=== PATIENT | male | born 1955 | race Caucasian/White ===

== ENCOUNTER → 2019-03-06 08:55 | Outpatient (CLI) | payer SELFPAY ==
[2019-03-06 12:27] LABS: Anion Gap 7 (5-15); BUN 21 mg/dL (7-18); Calcium,Total 9.5 mg/dL (8.5-10.1); Chloride 98 mmol/L (98-107); Creatinine, Serum 0.92 mg/dL (0.70-1.30); EST Glomerular Filtration Rate 88 mL/min (>60); Est Glom Filt Rate - Afr Amer 107 mL/min (>60); Glucose 301 mg/dL (74-106); Potassium 4.1 mmol/L (3.5-5.1); Sodium Level 134 mmol/L (136-145)
== END ==
PROVIDERS: PCP Family Medicine; Referring Provider Family Medicine; Visit Provider Family Medicine
DX: E11.65 Type 2 diabetes mellitus with hyperglycemia (principal); I10 Essential (primary) hypertension
CPT/HCPCS: 36415; 80048

== ENCOUNTER → 2020-01-09 09:12 | Outpatient (CLI) | payer MEDICARE, SELFPAY ==
[2020-01-09 12:23] LABS: Absolute Lymphocyte Count 1.27 X10^3/uL (0.83-4.51); Absolute Neutrophil Count 2.6 X10^3/uL (2.0-7.7); Basophil# 0.02 X10^3/uL; Basophil% 0.4 % (0-1); Eosinophil# 0.09 X10^3/uL; Hematocrit 43.9 % (40-54); Hemoglobin 14.2 g/dL (13.0-16.5); Lymphocyte # 1.27 X10^3/ul (4.0); Lymphocyte % 28.5 % (19-41); Mean Corp Hgb Conc 32.3 g/dL (32-36); Mean Corpuscular Hgb 29.3 pg (27.0-32.0); Mean Corpuscular Volume 90.7 fL (80-94); Mean Platelet Vol. 10.8 fl (6.2-12.0); Monocyte# 0.51 X10^3/uL; Monocyte% 11.4 % (0-10); NRBC Flagged by Analyzer 0 % (0-5); Neutrophil # 2.56 X10^3/uL (2.7-7.7); Neutrophil % 57.5 % (47-70); Platelet Count 267 K/mm3 (150-450); RBC Distribution Width CV 12.2 % (11.6-14.6); RBC Distribution Width SD 40.7 fl (35.1-43.9); Red Blood Count 4.84 M/mm3 (4.6-6.2); White Blood Count 4.5 K/mm3 (4.4-11.0)
[2020-01-09 12:36] LABS: ALB/GLOB Ratio 1.1 RATIO (0.9-2.4); AST(SGOT) 13 U/L (15-37); Alanine Aminotransfer ALT/SGPT 28 U/L (16-61); Albumin, Serum 3.9 g/dL (3.2-5.0); Alkaline Phosphatase 85 U/L (45-117); Anion Gap 5 (5-15); BUN 22 mg/dL (7-18); BUN/Creat Ratio 19.1 RATIO (10-20); Calcium,Total 9.3 mg/dL (8.5-10.1); Chloride 104 mmol/L (98-107); Cholesterol 215 mg/dL (200); Creatinine, Serum 1.15 mg/dL (0.70-1.30); EST Glomerular Filtration Rate 68 mL/min (>60); Est Glom Filt Rate - Afr Amer 82 mL/min (>60); Globulin 3.7 g/dL (2.2-4.2); Glucose 315 mg/dL (74-106); High Density Lipoprotein 50 mg/dL; Protein, Total 7.6 g/dL (6.4-8.2); Sodium Level 137 mmol/L (136-145); Triglycerides 159 mg/dL; Very Low Density Lipoprotein 32 mg/dL (5-40)
[2020-01-09 12:42] LABS: Hemoglobin A1c 9.9 % (3.8-5.6)
[2020-01-09 13:49] LABS: Microalbumin,Random Urine 26.2 mg/L (NO RANGE EST.)
== END ==
PROVIDERS: PCP Family Medicine; Visit Provider Family Medicine
DX: E11.65 Type 2 diabetes mellitus with hyperglycemia (principal); I10 Essential (primary) hypertension
CPT/HCPCS: 36415; 80053; 80061; 82043; 82570; 83036; 85025

== ENCOUNTER → 2020-01-13 11:19 | Outpatient (CLI) | payer MEDICARE, SELFPAY ==
[2020-01-13 16:01] LABS: PSA,Total - Annual Screen 1.02 ng/mL (0.00-4.00)
== END ==
LOC: LABSPEC 01-09 12:10 → BFHLAB 11:20
PROVIDERS: PCP Family Medicine; Referring Provider Family Medicine; Visit Provider Family Medicine
DX: Z12.5 Encounter for screening for malignant neoplasm of prostate (principal)
CPT/HCPCS: 36415; 84153; G0103

== ENCOUNTER 2020-04-29 15:26 | Outpatient (RCR) | payer MEDICARE, SELFPAY ==
[2020-04-29] MEDS: COVID-19 VACC, MRNA(PFIZER)/PF 30 MCG/0.3 ML SYRINGE IM (17:47)
[2020-05-20] MEDS: COVID-19 VACC, MRNA(PFIZER)/PF 30 MCG/0.3 ML SYRINGE IM (17:35)
== END 2020-07-27 23:59 ==
LOC: IMMUN 15:26
PROVIDERS: PCP Family Medicine; Referring Provider Family Medicine; Visit Provider Family Medicine
DX: Z23 Encounter for immunization (principal)
CPT/HCPCS: 0001A; 0002A; 91300

== ENCOUNTER → 2020-06-24 16:33 | Outpatient (CLI) | payer MEDICARE, SELFPAY ==
--- NOTE | 2020-06-24 16:50 | RAD_ITS ---
STUDY: X-RAY CHEST REASON FOR EXAM: Male, 64 years old. Shortness of breath. TECHNIQUE: PA and lateral views of the chest. COMPARISON: None. FINDINGS: The lungs are hypoexpanded. Bilateral pleural effusions and atelectasis at the lung bases. There is no acute infiltrate or mass. Normal size heart. Normal mediastinum and presley. Normal visualized pulmonary arteries. Normal visualized aortic arch and descending thoracic aorta. There are diffuse degenerative changes of the visualized thoracic spine. There is degenerative osteoarthritis of the bilateral shoulders. There is no demonstrated abnormality of the visualized soft tissue structures of the upper abdomen. RAD/Chest PA and Lateral IMPRESSION: Bilateral pleural effusions and atelectasis. Electronically Signed: Hany Ferrara DO at 18:34 EDT Tel [phone], Service support ,
== END ==
PROVIDERS: PCP Family Medicine; Referring Provider Family Medicine; Visit Provider Family Medicine
DX: R06.02 Shortness of breath (principal)
CPT/HCPCS: 71046

== ENCOUNTER → 2020-06-28 11:56 | Outpatient (CLI) | payer MEDICARE, SELFPAY ==
[2020-06-28 10:58] VITALS: BMI 25.0
[2020-06-28 13:00] LABS: Absolute Lymphocyte Count 0.68 X10^3/uL (0.83-4.51); Basophil# 0.01 X10^3/uL; Basophil% 0.2 % (0-1); Eosinophil# 0.03 X10^3/uL; Eosinophils% 0.7 % (0-5); Hematocrit 40.9 % (40-54); Hemoglobin 12.7 g/dL (13.0-16.5); Lymphocyte # 0.68 X10^3/ul (0.83-4.51); Lymphocyte % 16.3 % (19-41); Mean Corp Hgb Conc 31.1 g/dL (32-36); Mean Corpuscular Hgb 27.8 pg (27.0-32.0); Mean Corpuscular Volume 89.5 fL (80-94); Mean Platelet Vol. 10.5 fl (6.2-12.0); Monocyte# 0.47 X10^3/uL; Monocyte% 11.3 % (0-10); NRBC Flagged by Analyzer 0 % (0-5); Neutrophil # 2.98 X10^3/uL (2.7-7.7); Neutrophil % 71.5 % (47-70); Platelet Count 317 K/mm3 (150-450); RBC Distribution Width SD 45.4 fl (35.1-43.9); Red Blood Count 4.57 M/mm3 (4.6-6.2); White Blood Count 4.2 K/mm3 (4.4-11.0)
[2020-06-28 13:10] LABS: International Normalized Ratio 1.1; Partial Thromboplast Time 27.9 Seconds (24.1-36.2); Prothrombin Time (Protime)PT. 13.9 SECONDS (11.7-14.9)
== END ==
PROVIDERS: PCP Family Medicine; Referring Provider Internal Medicine Critical Care Medicine; Visit Provider Internal Medicine Critical Care Medicine
DX: J90 Pleural effusion, not elsewhere classified (principal); R06.02 Shortness of breath
CPT/HCPCS: 36415; 85025; 85610; 85730

== ENCOUNTER → 2020-06-29 14:10 | Outpatient (CLI) | payer MEDICARE, SELFPAY ==
[2020-06-28 10:58] VITALS: BMI 25.0
--- NOTE | 2020-06-29 | IMM_PTH ---
PATIENT: EVE ONEIL Jr. LOC: U#:[id number] AGE/SX: 69/M ROOM: RE06/29/[address]: Dr. Jaziel Medrano MD : 1955 BED: DIS: SPEC #: [id number] RECD: 07/01/20 11:49 STATUS: CAMMIE REQ #: [id number] HUMBERTO: 06/29/20 00:[address]: Jaziel Medrano DEPT: IMMUNOHISTOCHEMISTRY RECD BY: Migdalia Lagos ENTERED: 07/01/20 11:51 SP TYPE: IMMUNO OTHR DR: Dr. Jaja Ramsey MD Tissues: THORACIC FLUID Procedures: NAPSIN A (add) Reji Ret (add) CK20 (add) CK5-6 (add) CK7 (add) CK8 (add) SAUCEDO-2 (add) MACRO (add) TTF1 (add) Vimentin (add) Pankeratin (initial) P40 (add) CDX2 (add) PHYSICIAN & [address] [address] SPECIMEN INFORMATION: Tissue Source: Thoracentesis fluid Clinical Info: Pleural effusion Specimen Number: [id number] CPT code: 06867, 34103 x12 METHODOLOGY: Deparaffinized sections of prefer/formalin-fixed tissue or PAP/DQ stained slides are incubated with monoclonal/polyclonal antibodies/oligonucleotide probes. Localization is made via biotin free immunoperoxidase method. Appropriate controls are performed and reacted as expected. Results on target cell population are indicated in the following table: RESULTS: ANTIBODY / CLONE RESULT AE1-3 (AE1/AE3/PCK26) negative (positive in mesothelial cells) CK7 (OV-TL12/30) negative (positive in mesothelial cells) CK8 (01qkkdH80) negative (positive in mesothelial cells) CK20 (KS20.8) negative (positive in mesothelial cells) SAUCEDO-2 (SP21) positive CDX2 ([id number]) negative Vimentin (V9) negative (positive in mesothelial cells and macrophages) Macro (HAM-56) negative (positive in macrophages) TTF-1 (8G7G3/1) negative Napsin A (Rabbit Polyclonal) negative CALRET (polyclonal) negative (positive in mesothelial cells) CK5-6 (D5 & 1684) negative (positive in mesothelial cells) P40 (BC28) negative These tests were developed and their performance characteristics determined by [facility]. They may not have been cleared or approved by the U.S. Food and Drug Administration. The FDA has determined that such clearance or approval is not necessary. The above immunohistochemical/dualISH markers are ordered and reviewed by the Pathologist. INTERPRETATION: Thoracentesis fluid: Negative for malignant cells. Reactive mesothelial cells are noted. SJ:annalisa 07/02/2020
--- NOTE | 2020-06-29 14:00 | FLU_PTH ---
PATIENT: EVE ONEIL Jr. LOC: U#:[id number] AGE/SX: 69/M ROOM: RE06/29/[address]: Dr. Jaziel Medrano MD : 1955 BED: DIS: SPEC #: [id number] RECD: 06/30/20 11:32 STATUS: CAMMIE BRISENO #: [id number] HUMBERTO: 06/29/20 14:[address]: Jaziel Medrano DEPT: CYTOLOGY RECD BY: Polina Tam ENTERED: 06/30/20 11:32 SP TYPE: Fluid OTHR DR: Dr. Jaja Ramsey MD Tissues: THORACIC FLUID Procedures: Special Stain Group II Surgery Specimen Level IV Cytospin Fluid HEADER OPERATION: Thoracentesis, left PRE-OP DIAGNOSIS: Pleural effusion TISSUE SUBMITTED: Thoracentesis fluid for cytology DIAGNOSIS CYTOLOGY Thoracentesis fluid for cytology (cytospin and cell block): Negative for malignant cells. See comment. SJ:annalisa 07/01/2020 COMMENT Reactive mesothelial cells are noted. Immunohistochemistry ([id number]) supports the above diagnosis. Clinical correlation and appropriate follow up are necessary. CYTOLOGY STUDY Slides are reviewed. CYTOLOGY GROSS Received is 100 ml of yellow cloudy fluid labeled with the patient's name and and designated per the requisition as thoracentesis. Submitted for cytology preparation including cell block. / annalisa 06/30/2020 TC:5 CPT: 93431, 79802
--- NOTE | 2020-06-29 14:11 | US_ITS ---
PROCEDURE: ULTRASOUND GUIDED THORACENTESIS. DATE: 06/29/2020.. INDICATION: Male, 64 years old. Left pleural effusion. PHYSICIAN: Gabriel Lockwood M.D. PROCEDURE: The risks, benefits, and alternatives to the procedure were explained to the patient. The specific risks of bleeding, infection, and pneumothorax requiring chest tube insertion were discussed and accepted. Written informed consent was obtained. Ultrasonographic evaluation of the left lower pleural space was carried out. An adequate pocket was identified. The patient was placed in the sitting, upright position. The overlying skin was prepped and draped in sterile fashion. 1% lidocaine was administered subcutaneously for local anesthesia. Under ultrasound guidance, a 5 [place] thoracentesis needle/catheter system was advanced into the left posterior lower pleural fluid collection. Approximately 1500 mL of orion-colored fluid fluid was drained. The catheter was removed, and a sterile dressing was applied. A specimen was collected and sent to the laboratory for analysis, as requested by the referring clinician. The patient tolerated the procedure well. A chest x-ray was ordered. US/Thoracentesis W US IMPRESSION: Ultrasound-guided left thoracentesis. Electronically Signed: Gabriel Lockwood MD at 15:13 EDT , Service support ,
[2020-06-29 14:35] VITALS: BP 118/77; BP 132/81; BP 144/78; PULSE 100; PULSE 101; PULSE 99; RESP 128; RESP 16; O2SAT 96; O2SAT 99
--- NOTE | 2020-06-29 14:40 | RAD_ITS ---
STUDY: X-RAY CHEST REASON FOR EXAM: Male, 64 years old. Pneumothorax -- immediately post thoracentesis TECHNIQUE: AP inspiration and expiration views following left thoracentesis. COMPARISON: Comparison is made with prior study dated 06/24/2020. FINDINGS: The patient is status post left thoracentesis. There is no evidence of pneumothorax. RAD/Chest Insp/Exp 2 View IMPRESSION: Status post left thoracentesis. No evidence of pneumothorax. Electronically Signed: Gabriel Lockwood MD at 15:20 EDT , Service support ,
[2020-06-29 15:03] LABS: Cytology, Body Fluid / CSF SEE PATHOLOGY REPORT
[2020-06-29 15:36] LABS: Body Fluid Mononuclear WBC # 0.742 10^3/uL; Body Fluid Mononuclear WBC % 96.1 %; Body Fluid Polynuclear WBC % 3.9 %; Body Fluid Total Cells Counted 1.013 10^3/ul; White Blood Count/Body Fluid 0.772 10^3/uL
[2020-06-29 15:45] LABS: LDH,Body Fluid 97 Units/l (Not Establ.); Protein, Body Fluid 3.2 g/dL (Not Establ.)
[2020-06-29 16:59] LABS: Auto B Fluid Analyzer BKGD Ct COUNTS W/IN LIMITS (W/IN LIMITS); Lymphocytes 62 %; Macrophages 16 %; Mesothelial Cells 21 %; Neutrophil (Segs) 1 %; Source- Body Fluid THORACENTESIS
[2020-06-29 17:00] LABS: Appearance/Body Fluid SL CLDY; Body Fluid QC Type(s) BF3Q; Color/Body Fluid YELLOW; Red Cell Count/Body Fluid 136 /mm3
[2020-06-30 12:49] LABS: Pathologist Comment/Body Fluid Reviewed
== END ==
PROVIDERS: PCP Family Medicine; Referring Provider Internal Medicine Critical Care Medicine; Visit Provider Internal Medicine Critical Care Medicine
DX: J90 Pleural effusion, not elsewhere classified (principal)
CPT/HCPCS: 32555; 71046; 83615; 84157; 87070; 87075; 87205; 88108; 88305; 88313; 88341; 88342; 89050

== ENCOUNTER → 2020-07-02 08:14 | Outpatient (CLI) | payer MEDICARE, SELFPAY ==
[2020-06-28 10:58] VITALS: BMI 25.0
--- NOTE | 2020-07-02 08:16 | US_ITS ---
PROCEDURE: ULTRASOUND GUIDED THORACENTESIS. DATE: 07/02/2020. INDICATION: Male, 64 years old. Right pleural effusion. PHYSICIAN: Gabriel Lockwood M.D. PROCEDURE: The risks, benefits, and alternatives to the procedure were explained to the patient. The specific risks of bleeding, infection, and pneumothorax requiring chest tube insertion were discussed and accepted. Written informed consent was obtained. Ultrasonographic evaluation of the right lower pleural space was carried out. An adequate pocket was identified. The patient was placed in the sitting, upright position. The overlying skin was prepped and draped in sterile fashion. 1% lidocaine was administered subcutaneously for local anesthesia. Under ultrasound guidance, a 5 [place] thoracentesis needle/catheter system was advanced into the right posterior lower pleural fluid collection. Approximately 700 mL of orion-colored fluid fluid was drained. The catheter was removed, and a sterile dressing was applied. The patient tolerated the procedure well. A chest x-ray was ordered. US/Thoracentesis W US IMPRESSION: Ultrasound-guided right thoracentesis. Electronically Signed: Gabriel Lockwood MD at 9:55 EDT , Service support ,
[2020-07-02 08:36] VITALS: BP 114/63; BP 116/67; BP 130/76; PULSE 101; PULSE 99; RESP 16; RESP 18; TEMP 37; O2SAT 95; O2SAT 96
--- NOTE | 2020-07-02 08:48 | RAD_ITS ---
STUDY: X-RAY CHEST REASON FOR EXAM: Male, 64 years old. Post thora TECHNIQUE: AP inspiration and expiration views COMPARISON: Comparison is made with prior study dated 06/29/2020. FINDINGS: The patient is status post right thoracentesis. No evidence of pneumothorax. Blunting of both costophrenic angles. Mild increased markings at the left lung base. RAD/Chest Insp/Exp 2 View IMPRESSION: Status post right thoracentesis. No evidence of pneumothorax. Electronically Signed: Gabriel Lockwood MD at 9:52 EDT , Service support ,
== END ==
PROVIDERS: PCP Family Medicine; Referring Provider Internal Medicine Critical Care Medicine; Visit Provider Internal Medicine Critical Care Medicine
DX: J90 Pleural effusion, not elsewhere classified (principal)
CPT/HCPCS: 32555; 71046

== ENCOUNTER → 2020-07-05 07:53 | Outpatient (CLI) | payer MEDICARE, SELFPAY ==
[2020-06-28 10:58] VITALS: BMI 25.0
== END ==
PROVIDERS: PCP Family Medicine; Referring Provider Family Medicine; Visit Provider Family Medicine
DX: I35.8 Other nonrheumatic aortic valve disorders (principal)
CPT/HCPCS: 93306

== ENCOUNTER 2020-07-22 06:38 | Day surgery (SDC) | payer MEDICARE, SELFPAY ==
[2020-07-06 12:56] VITALS: BMI 24.7
[2020-07-09 08:20] VITALS: BMI 24.7
[2020-07-22 06:49] LABS: Absolute Lymphocyte Count 1.31 X10^3/uL (0.83-4.51); Absolute Neutrophil Count 4.2 X10^3/uL (2.0-7.7); Basophil# 0.03 X10^3/uL; Basophil% 0.5 % (0-1); Eosinophil# 0.14 X10^3/uL; Eosinophils% 2.2 % (0-5); Hematocrit 42.1 % (40-54); Lymphocyte # 1.31 X10^3/ul (0.83-4.51); Lymphocyte % 20.4 % (19-41); Mean Corp Hgb Conc 30.9 g/dL (32-36); Mean Corpuscular Hgb 27.1 pg (27.0-32.0); Mean Corpuscular Volume 87.7 fL (80-94); Mean Platelet Vol. 10.2 fl (6.2-12.0); Monocyte% 10.9 % (0-10); NRBC Flagged by Analyzer 0 % (0-5); Neutrophil # 4.24 X10^3/uL (2.7-7.7); Neutrophil % 65.8 % (47-70); Platelet Count 302 K/mm3 (150-450); RBC Distribution Width CV 13.3 % (11.6-14.6); White Blood Count 6.4 K/mm3 (4.4-11.0)
[2020-07-22 07:03] LABS: Anion Gap 6 (5-15); BUN 34 mg/dL (7-18); BUN/Creat Ratio 23.9 RATIO (10-20); Calcium,Total 9.5 mg/dL (8.5-10.1); Chloride 103 mmol/L (98-107); Creatinine, Serum 1.42 mg/dL (0.70-1.30); EST Glomerular Filtration Rate 53 mL/min (>60); Est Glom Filt Rate - Afr Amer 64 mL/min (>60); Estimated Creatinine Clearance 56.17 ml/min; Glucose 192 mg/dL (74-106); Potassium 4.1 mmol/L (3.5-5.1); Sodium Level 140 mmol/L (136-145)
--- NOTE | 2020-07-22 09:07 | CL.D_ITS ---
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 Mild disease involving the right coronary artery and left circumflex artery. 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 RECOMMENDATIONS Will refer to [facility]. Dr Deep Rose DESCRIPTION OF PROCEDURE The patient arrived to the procedure lab. The risks and benefits of the procedure as well as a full d escription of our services here and current unavailability of surgical backup were fully explained to the patient and/or their significant other prior to the catheterization. The Timeout was completed, verifying the correct patient and procedure. The patient's procedural site was prepped and draped in the usual fashion. Local anesthetic was given subcutaneously to right radial region with Lidocaine 2% . Using a modified Seldinger technique, arterial access was obtained via the right radial artery, a 6 Fr sheath was inserted. Left Coronary Artery selective angiography was performed in multiple views u sing a 5 Fr. 4.0 [place] catheter. Right Coronary Artery selective angiography was then performed in mu ltiple views using a 5 Fr. 4.0 [place] catheter. Left Ventriculography was performed in ESCOBAR projection using a 5 Fr. Pigtail catheter. LV to AO pullback pressures were then recorded.The arterial sheath was pulled and a TR Band was applied for hemostasis CORONARY ANGIOGRAPHY DOMINANCE: Right Dominant LEFT HEART ASSESSMENT Left Ventricular Ejection Fraction: by LV Gram 40 % Depressed Left Ventricular systolic function Basal aneurysm LEFT MAIN: Angiographically normal LEFT ANTERIOR DESCENDING ARTERY: MID LAD: Diffusely diseased up to 80 % CIRCUMFLEX ARTERY: Mild luminal irregularities less than 30% RIGHT CORONARY ARTERY: Mild luminal irregularities less than 30% VALVE FINDINGS: Mitral Valve Insufficiency - Grade 2 COMPLICATIONS No Complications PROCEDURE MEDICATIONS Fentanyl 50 mcg IV Versed 1 mg IV Oxygen: 2 L/min via nasal cannula Heparin given IA 07/22/2020 08:26:17 Verapamil 2.5mg, 3000 units of Heparin given IA 07/22/2020 08:26:17 SUMMARY OF HEMODYNAMIC DATA Time AIR REST ECG 07:04:43 AO 123/74 (96) SA 08:28:07 LV 116/7, 18 08:37:25 LV 115/8, 17 08:37:31 LV 113/11, 21 08:38:33 LV 118/14, 25 08:40:37 LVp 118/15, 25 08:40:40 AOp 0/-14 (6) 08:40:45 Signed By Froylan Bella MD On 07/22/2020 09:06:10 Froylan Bella MD
== END 2020-07-22 10:45 | disposition home or self-care (01) ==
PROVIDERS: PCP Family Medicine; Referring Provider Internal Medicine Cardiovascular Disease; Visit Provider Internal Medicine Cardiovascular Disease
DX: I25.10 Atherosclerotic heart disease of native coronary artery without angina pectoris (principal); I25.3 Aneurysm of heart; I34.0 Nonrheumatic mitral (valve) insufficiency; I10 Essential (primary) hypertension; I27.21 Secondary pulmonary arterial hypertension; F32.9 Major depressive disorder, single episode, unspecified; E11.9 Type 2 diabetes mellitus without complications; E78.5 Hyperlipidemia, unspecified; Z79.84 Long term (current) use of oral hypoglycemic drugs; Z79.899 Other long term (current) drug therapy; Z87.891 Personal history of nicotine dependence
CPT/HCPCS: 36415; 80048; 85025; 93458; 99152; 99153; J7040; Q9967; C1769; C1894

== ENCOUNTER → 2020-12-01 13:38 | Outpatient (CLI) | payer MEDICARE, SELFPAY ==
--- NOTE | 2020-12-01 13:46 | PCM.CR.ITP ---
Diagnosis - General Information Admitting Diagnosis: Heart Valve replacement, S/P CABG Personal Learning Style:: Audio/Visual, Written Barriers to Learning: Hearing Impairment, Vision Impairment Stage of change r/t lifestyle modifications:: Action Gave educational material for:: Treating Heart Disease, Emotions & Heart Disease, Stress Management & Relaxation, Sleep Disorders & Heart Disease, How The Heart Works, What it means to have Heart Disease, How Coronary Artery Disease is Diagnosed, Heart Procedures, What Heart Medications Do, Risk Factors & Modifications, Living an Active Life, Nutrition - Education/Goals Individual Counseling: Initial Assessment: Abnormal Cholesterol Levels, High Blood Pressure Cardiac Rehabilitation Goals: 1. Maintain the individual as the primary focus of care. 2. To improve the patient's quality of life. 3. Identification of cardiac risk factors and provide cardiac risk factor management. 4. Enhance the psychosocial status of the patient. 5. Reconditioning enough to allow the patient to resume customary activities. 6. Control symptoms of cardiac disease Personal Goals: Initial Assessment: Improve management of stress and emotions, Improve energy level, Participate in home exercise program, Improve muscle strength and endurance, Control risk factors (learn risk factor modification) Scale for measuring improvement of personal goals: Enter appropriate number in Comments. 2 = Unchanged. 3 = Slightly Better. 4 = Moderate Improvement. 5 = Met my Goal - Diagnosis & Disease Process Outcomes/Goals: Pt IDs own risk factors & lifestyle modifications by Session 10, Verbalizes symptoms of angina & response by session 3., Pt independently manages Plan/Interventions: Assist Pt to ID & engage in lifestyle modification to reduce CVD risk, Instruct on individual risk factors, Review symptoms of angina & emergency actions, Review secondary diagnosis & identify educational needs. - Safety Referral to Physical Therapy: No Referral to [facility] Case Management: No Fall Risk Assessed:: Yes Assistive Devices:: None Exercise - Initial Assessment - Visit Date of Eval: 12/01/20 Session #:: 0 - Pre-cardiac rehab evaluation Mets: Pre-: >7 METS for 30 minutes by discharge - Physician Prescribed Exercise Modalities: Treadmill, Airdyne, NuStep Frequency: 3x/week for 12 weeks [36 sessions] Intensity: 60-80% of age predicted maximum heart rate reserve Current METSs:: 3.0 Target Heart Rate:: 100-130 Resting Blood Pressure: 136/76 EKG Type: Sinus rhythm (low voltage) - Outcomes & Goals Goals:: Verbalizes understanding of THR, RPE & goal METS by session 6, Documents in home exercise log/reports 30 min aerobic 5 day/wk by DC, Demonstrates accurate pulse taking by DC - Intervention & Plan Exercise Program Goals: Instruct on personal THR & RPE, Instruct on MET level & personal MET goal, Show patient to take own pulse /validate performance until accurate, Instruct on home exercise - Physical Activity Home Exercise Physical Activity - Home Exercise: Safe Exercise, Warm-up, Self-monitoring, Cool-Down, Home Exercise > 30 min Daily, Sitting Time <3 hours/daily - Outcomes & Goals Outcomes/Goals: Demonstrates correct Warm-up/exercise Cool-Down (S3) if = 2.5 METs, Verbalizes symptoms of exercise intolerance by Session 3 (S3), Demonstrate safe equipment use (S3) & follows exercise prescrition (6) - Intervention & Plan Plan/Intervention: Instruct warm-up & cool-down if exercising at > 2 METs, Instruct on symptoms of exercise intolerance & actions to take, Instruct & monitor on saf, Assess intial functional capacity & safety risk Nutrition - Initial Assessment - Program Goals Nutrition Program Goals: LDL <100 optimal. 100 - 129 Near optimal. 130 - 159 Borderline High. 160 - 189 High. Total Cholesterol <200 desirable. 200 - 239 Borderline High. >/= 240 High. HDL < 40 Low >/=60 High. Triglycerides <150 desirable. <199 optimal. VlDL 5 - 40. HgbA1C <7%. BMI <25 Patient has diagnosis of Hyperlipidemia (ICD E78)?: Yes - Visit Date of Assessment:: 12/01/20 Session #:: 0 - pre-cardiac rehab evaluation - Cholesterol/Lipids Triglycerides (mg/dL): 159 Total Cholesterol (mg/dL): 215 LDL Cholesterol (mg/dL): 133 HDL Cholesterol (mg/dL): 50 Determine presence & major risk factors that modify LDL goal: Hypertension or hypertensive medication, Family history of premature CHD in Male < 55 years: female <65 yearsFa, Age men > 45 years; women >/= 55 years Outcomes/Goals: Pt IDs own risk factors & lifestyle modifications by Session 10, Verbalizes symptoms of angina & response by session 3., Pt independently manages Intervention/Plan: Instruct on personal lipid levels & lipid goals/NCEP guidelines, Instruct on cholesterol Referral to dietitian:: Yes - Medical Nutrition Therapy - Diabetes (Other Core Measures) Diabetes Type: Diagnosis Type II ICD-10 E11 Fasting blood glucose:: 192 Hgb A1C (4.2 - 6.3): 9.9 Insulin dependent injection/pump?: Yes Non-Insulin Dependent?: Yes Do you monitor your blood sugar at home?: Yes Referral to Diabetic Clinic:: Yes - Initial DSMNT & MNT Outcomes/Goals:: Able to state symptoms of, Able to state, Able to state Intervention/Plan:: Instruct on, Refer to, Instruct on - Weight Mgt (Other Care) Not Applicable: Yes Height: 6 ft Weight:: 174 lb BMI: 23.6 Diagnosis Overweight/Obesity BMI> 30% ICD-10 E66: No Diagnosis High BMI/Morbid Obesity BMI> 35% ICD-10 Z68: No Outcomes/Goals: Pt sets, maintains & shows weight loss goal & trend during rehab Intervention/Plan: Instruct on ideal BMI & set weight loss goal w/patient, Assist pt to ID & incorporate diet changes for weight loss by S9, Encourage goal of using 250-300dcal per session for weight loss - Healthy Eating Habits Will attend diet classes:: Yes Outcomes/Goals:: Consume diet rich in vegs,fruits,whole grain/high fiber,fish,lean meat, Limit sat/trans fats,cholesterol & added salts & sugars Intervention/Plan:: Assess current eating habits - Education Gave educational materials for:: Signs & symptoms of hypoglycemia, Signs & symptoms of hyperglycemia, Relate diabetes to coronary artery disease, Healthy eating Nutrition - 30-Day Assessment Nutrition - 60-Day Assessment Nutrition - 90-Day Assessment Nutrition - Final Assessment Medical - Initial Assessment - Visit Date of Eval: 12/01/20 Session #:: 0 - Pre-cardiac Rehab evaluation - Medication Compliance Preventative Medication(s):: Statin/lipid, Beta binu H/O mental health issues: depression, anxiety, or addiction?: No Doesn?t believe in the benefits of treatment?: No Believes medications are unnecessary or harmful?: No Has a concern about medication side effects?: No Expresses concern over the cost of medications?: No Outcomes/Goals: Verbalizes medications,desired effect & common side effects @ DC, Pt self-reports following medication regimen, Keeps card in wallet w/medications listed by DC Interventions/plans: Instruct on medication effects & side effects, Review medication list w/patient every two weeks, Instruct importance of taking meds as ordered & assist problem solving - Tobacco Use Tobacco Use: Non-smoker - Hypertension Hypertension Diagnosis:: Hypertension ICD-10 I10 Resting Blood Pressure:: 136/76 [employer] Hypertension Guidelines: [place] [employer] Hypertension Guidelines. Normal BP Less than 120/80. Elevated BP 120/80. Hypertension Stage 1: BP 130-139/80-89. Hypertesnion Stage 2: BP 140 or higher/90 or higher. Hypertension Crisis: BP higher than 180/120 Outcomes/Goals: Able to verbalize/achieve optimal blood pressure <130/80, Incorporates diet changes & exercise for blood pressure control by DC Interventions/plan: Instruct on optimal blood pressure, hypertension & medications, Instruct on effects of sodium, alcohol, stress, exercise &hypertension - Tobacco Cessation Referral Smoking Cessation Referral:: No Individual Education/Counseling:: No Education Schedule Given:: Yes - Online Education resources provided & workbook Medical- 30-Day Assessment Medical- 60-Day Assessment Medical- 90-Day Assessment Medical - Final Assessment Psychosocial - Initial Assess - VIsit Date of Eval: 12/01/20 Session #:: 0 - Pre-cardiac Rehab evaluation Not Applicable: Yes History of previous Mental disease:: No - Psychosocial Test Tool Used:: [employer] QOL Cardiac, PHQ-9 Questionnaire phq-9 Severity: Severity. 1-4 Minimal Depression. 5-9 Mild Depression. 10-14 Moderate Depression. 15-19 Moderately Sever Depression. 20-27 Severe Depression. Rule: - Referral to Behavioral Health PS - Interventions: Yes Attend Stress Management Classes, No Referral to Behavioral Health if PHQ-9 score >9:, No Referral to [facility], No Referral to Physician if PHQ-9 if score is 5-9: - Outcomes/Goals: See list Psychosocial Outcomes/Goals:: ID's personal stressors & 2 strategies to manage stress by discharge - Intervention/Plan: See List Interventions/Plan:: Assess stressors,coping strategies & signs of derpression on admission, Instruct/assist pt to develop coping & personal stress Mgt strategies, Instruct patient to recognize signs & symptoms of depression, Instruct patient to recog Psychosocial - 30-Day Assess Psychosocial - 60-Day Assess Psychosocial - 90-Day Assess Psychosocial - Final Assessmen Patient Health Questionnaire Initial Assessment 1. Little interest or pleasure in doing things: Not at all 2. Feeling down, depressed, or hopeless: Not at all 3. Trouble falling or staying asleep, or sleeping too much: Several days 4. Feeling tired or having little energy: Several days 5. Poor appetite or overeating: Not at all 6. Feeling bad about yourself -- or that you are a failure or have let yourself or your family down: Not at all 7. Trouble concentrating on things, such as reading the newspaper or watching television: Not at all 8. Moving or speaking so slowly that other people could have noticed. Or the opposite - being so fidgety or restless that you have been moving around a lot more than usual: Not at all 9. Thoughts that you would be better off , or of hurting yourself in some way: Not at all How difficult have these problems made it for you to do your work, take care of things at home, or get along with other people?: Somewhat difficult Total Score: 2 ALTA-Q SV Test - Statements CAD is a disease of the arteries in the heart: False Examples of risk factors for heart disease: True Angina is chest pain or discomfort: True The benefits of resistance training include: True Eating more meat and dairy products: False Anti-platelet medications such as aspirin are important: True The only effective way to manage stress: False An exercise warm-up slowly increases heart rate: True Prepared, processed foods usually have high sodium: True Depression is common after a heart attack: True The statin medications lower cholesterol: True To control blood pressure, lower the amount of sodium: True If someone gets chest discomfort during walking: False Transfats are partially hydrogenated vegetable oils: I Don't Know Sleep apnea that is not treated increases the risk: False To control cholesterol, one should become a vegetarian: False Someone knows if he/she is exercising at the right level: True Diabetes cannot be prevented with exercise & health eating: False Stress is a large risk for heart attack: True A diet that can help lower blood pressure is rich in: True - Total Score Total Correct Responses: 19 Self-Efficacy Initial Assessment We would like to know how confident you are in doing certain activities. Please select your confidence level for:: Select your confidence level for the following using the scale 1-10 where 1 is not at all confident and 10 is totally confident. Your score is the average of all 6 responses. Fatigue: How confident are you that you can keep the fatigue caused by your disease from interfering with the things you want to do? Select Number: 7 Physical Discomfort or Pain: How confident are you that you can keep the physical discomfort or pain of your disease from interfering with the things you want to do? Select Number: 7 Emotional Distress: How confident are you that you can keep the emotional distress caused by your disease from interfering with the things you want to do? Select Number: 7 Other Symptoms or Health Problems: How confident are you that you can keep other symptoms or health problems from interfering with the things you want to do? Select Number: 6 Different Tasks and Activities: How confident are you that you can do the different tasks and activities needed to manage your health condition so as to reduce your need to see a doctor? Select Number: 8 Medication: How confident are you that you can do things other than just taking medication to reduce how much your illness affects your everyday life? Select Number: 8 Total Score:: 7 Nutrition Survey - Nutrition Survey Initial Have you lost >10 lbs over the past 2 months without trying?: No Are you following a special diet at home for diabetes, low fat, or low salt?: Yes Are you interested in meeting with a dietitian for help understanding your diet?: No Do you eat less than 3 meals a day?: No Do you eat fatty meats (luis, sausage, ribs, etc), fried foods, desserts, large amounts of salad dressings, margarine, butter, or cheese most days?: No Do you have food allergies? [Enter types in comment field]: No Do you eat in restaurants more than 3 times a week?: No Do you season food with salt, seasoning salt, or garlic salt?: No Do you used canned, boxed, frozen meals, or soups, seasoning packets?: No Total Score:: 1
--- NOTE | 2020-12-01 13:46 | PCM.CR.HP2 ---
CR - History & Physical - General Arrival date:: 12/01/20 Arrival time:: 13:45 Date of Referral:: 11/12/20 Date of CR Evaluation:: 12/01/20 Referring Physician: Dr. Froylan Bella Primary Diagnosis: Heart valve Replacement, S/P CABG - History of Present Cardiac Event Onset Date: Enter Onset Date of cardiac illnesses in Comment field below Coronary Artery Bypass Graft:: Yes - 10/05/2020 at the [facility] Heart valve replacement or repair:: Yes - 10/05/2020 at the [facility] - Sleep Disorder Evaluation Hx of Sleep Apnea: No Do you snore loudly (louder than talking or can be heard through closed doors)?: No Do you often feel tired/ fatigued/ sleepy during daytime?: Yes - yes takes a nap in the afternoon, but generally has done that since halfway Has anyone observed you stop breathing during sleep?: No History of Hypertension (for STOP score): Yes STOP Results: Positive - Medications Home Medications: Ambulatory Orders Medication Instructions Recorded glipizide 10 mg tablet 10 mg PO DAILY 06/25/20 aspirin [Aspir-81] 81 mg PO DAILY 07/22/20 atorvastatin 40 mg tablet 40 mg PO QHS 10/19/20 insulin glargine 100 unit/mL (3 10 unit SUBCUT DAILY ml 10/19/20 mL) subcutaneous pen sitagliptin 100 mg tablet 100 mg PO DAILY 10/19/20 tamsulosin 0.4 mg capsule 0.4 mg PO QHS 10/19/20 metoprolol tartrate 25 mg tablet 12.5 mg PO DAILY tab 11/12/20 - Allergies Allergies/Adverse Reactions: Allergies No Known Allergies Allergy (Unverified 11/12/20 15:08) Advanced Directives - Advanced Directives Power of Registration Scheduling Specialist: No Living Will: No Advance Directives Information Provided: Yes Advance Directives on File: No DNR Order?:: No - MOLST See MOLST form: No Past Medical History - Covid-19 Screening Fever: No Unexplained muscle aches: No Current respiratory symptoms: No Upper respiratory infections symptoms: No Gastro-intestinal symptoms: No Tzd-[id number]-Suvdri symptoms: No Has tested positive for COVID-19 in last 30 days: No Date of testin05/20/20 - Pfizer vaccine received. Had contact w/person w/symptoms or Covid-19 (+) last 14 days: No Has High Risk Exposures ID'd by Health dept/Inf Control team: No 65 years or older:: Yes Lives in Assisted Living facility:: No Has a chronic lung disease or moderate to severe asthma:: No Has a serious heart condition:: Yes Immunocompromised:: No Severely obese (Body Mass Index of 40 or higher):: No Diabetic:: Yes Has chronic kidney disease undergoing dialysis:: No Has liver disease:: No - Past Medical Illness Medical History: Past Medical History (Last Reviewed 11/12/20 @ 15:[address] 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 LV wall closure utilizing fibrotic myocardium and reinforced with two strips of kwadwo felt. Neuropathy G62.9 Non-rheumatic tricuspid stenosis with insufficiency I36.2 Nonrheumatic mitral (valve) insufficiency I34.0 Pleural effusion J90 Seasonal allergies J30.2 Secondary pulmonary arterial hypertension I27.21 - Past Surgical History Surgical History: Past Surgical History (Last Reviewed 11/12/20 @ 15:[address] Froylan Bella MD) H/O coronary artery bypass surgery Onset Date: 10/05/20 Z95.1 CABG x 1: COLLIER-LAD w/ Mitral Valve Replacement w/ 29 mm Tissue Prosthesis-Biocor and Large inferiorbasilar LV aneurysm, repaired with endoventricular bovine pericardial patch. LV wall closure utilizing fibrotic myocardium and reinforced with two strips of kwadwo felt. History of left heart catheterization Onset Date: 07/22/20 Z98.890 History of mitral valve replacement with bioprosthetic valve Onset Date: 10/05/20 Z95.3 Mitral Valve Replacement w/ 29 mm Tissue Prosthesis-Biocor 10/05/20 History of thoracentesis Onset Date: 07/02/20 Z98.890 left 06/29/2020; right 07/02/20 - Family History Summary Family History: Family History (Last Reviewed 11/12/20 @ 15:[address] Froylan Bella MD) Mother Myocardial infarction Cancer melanoma Father CVA (cerebral vascular accident) Brother Hypertension Sister Cancer breast Daughter Cancer Sister Thyroid disorder Social History - Smoking History Smoking Status: Never smoker Hx Tobacco Use: No Hx Smoking Exposure: No - Alcohol Use Alcohol Usage: No - Substance Abuse Hx Substance Use: No - Occupation Occupation (List type of work in comments):: Retired - Hobbies, Recreation, Social Activities Hobbies: Other - [employer]. 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 Social Environment - Status Marital Status: - Current Living Arrangements Living Environment:: Spouse - Children How many children do you have?: 3 Do any of your children live nearby?: Yes - 1-, 1- local, 1-[place] - Safety Do you feel safe in your surroundings?: Yes - Assistance Do you need any assistance at home?: No Review of Systems - Review of Systems Hints: Right click = Denies (Slash). Left click = Reports (Hope) Review of Present Symptoms: Reports: Dizziness/Lightheadedness - Some occasional lightheadedness. Taken of the metoprolol due to low BP and that has resolved soem of/if not most of the issue., Fatigue, Appetite - Normal, Appetite - Special Diet - Diabetic, Low sodium diet, Sleep - Normal. Denies: Shortness of Breath with Exertion - not since has had the valve replacement surgery., Operative Discomfort, Wound Healing, Heart Arrhythmia/Irregularities, Sexual Changes - Pain Is Patient Pain Free?: Yes Pain Location: none Pain Level: 0/10 Risk Factor Assessment - Chief Complaint Chief Complaint: Pt is a 65 yr old male patietn of Dr. Salguero who presents to cardiac rehab today following recent mitral valve replaceent and coronary bypass sugery completed at the [facility] on 10/05/2020 - Vital Signs Temperature: 97.8 F Respiratory Rate: 16 Pulse Ox: 98 Blood Pressure: 136/76 - Pulse Pulse Rate: 91 Pulse Rhythm: Regular - Hypertension Blood Pressure Sitting - Left Arm: 136/76 - Blood Cholesterol/Lipids Total Cholesterol (mg/dL) Goal = less than 200 mg/dL: 215 HDL Cholesterol (mg/dL) Goal = less than 40 mg/dL: 50 LDL Cholesterol (mg/dL) Goal = less than 70 mg/dL: 133 Triglycerides (mg/dL) Goal = less than 150 mg/dL: 159 - Diabetes Diabetic History: Type II, Medication Dependent, Insulin Dependent Nutrition Referral for Diabetes: Yes - Obesity Height: 6 ft Weight:: 174 lb Weight in Pounds: 174.0 lbs Weight Source: Standing Scale Body Mass Index (BMI): 23.6 Nutritional Referral for Obesity: No - Physical Inactivity Physical Inactivity: Recreational activity - Risk Stratification Risk Guidelines: Lowest Risk: Risk Factor for Smoking, Risk Factor for Dyslipidemia, Risk Factor for Obesity, Risk Factor for Sedentary Lifestyle, Risk Factor for Depression, Moderate Risk: Risk Factor for Hypertension - 136/76, Highest Risk: Risk Factor for Diabetes - glucose 192 and A1c 9.9 - Family History Family History: Family History (Last Reviewed 11/12/20 @ 15:[address] Froylan Bella MD) Mother Myocardial infarction Cancer Father CVA (cerebral vascular accident) Brother Hypertension Sister Cancer Daughter Cancer Sister Thyroid disorder Motivation - Motivation to Participate On a scale of 1 to 10, how prepared are you to commit to attending program?: 8 What do you see as barriers to successfully being able to complete the program?: Stubborn bullheadedness What do you see as the benefits of succesfully completing the program? In other words, what do you hope to get out of participating in the program?: do me some good increase strenght and endurance to do daily activities. Are there issues you are dealing with that will interfere with completing the program?: no Do you have a spouse or signficant other, family or friends who will help support you to complete the program?: Yes
[2020-12-01 14:06] VITALS: BP 136/76; BMI 23.6
[2020-12-01 14:26] VITALS: BP 136/76; PULSE 91; RESP 16; TEMP 36.6; O2SAT 98; BMI 23.6
== END ==
PROVIDERS: PCP Family Medicine; Referring Provider Internal Medicine Cardiovascular Disease; Visit Provider Internal Medicine Cardiovascular Disease
DX: Z95.3 Presence of xenogenic heart valve (principal)

== ENCOUNTER 2020-12-17 08:00 | Outpatient (RCR) | payer MEDICARE, SELFPAY ==
[2020-12-01 14:06] VITALS: BMI 23.6
== END 2020-12-19 23:59 ==
LOC: CR 08:00
PROVIDERS: PCP Family Medicine; Referring Provider Internal Medicine Cardiovascular Disease; Visit Provider Internal Medicine Cardiovascular Disease
DX: I25.10 Atherosclerotic heart disease of native coronary artery without angina pectoris (principal); I34.0 Nonrheumatic mitral (valve) insufficiency; I25.3 Aneurysm of heart; I27.21 Secondary pulmonary arterial hypertension; Z95.1 Presence of aortocoronary bypass graft; Z95.3 Presence of xenogenic heart valve
CPT/HCPCS: 93798

== ENCOUNTER 2021-01-17 08:00 | Outpatient (RCR) | payer MEDICARE, SELFPAY ==
[2020-12-01 14:06] VITALS: BMI 23.6
--- NOTE | 2020-12-31 13:47 | PCM.CR.ITP ---
Diagnosis Exercise - 30-day Assessment - Visit Date of Eval: 12/31/20 Session #:: 10 - Physician Prescribed Exercise Modalities: Treadmill, Airdyne, NuStep Frequency: 3x/week for 12 weeks [36 sessions] Intensity: 60-80% of age predicted maximum heart rate reserve Current METSs:: 6.0 increased from 3.0 Target Heart Rate:: 100-130 Current RPE:: 13-14 Maximum Excercise HR:: 124 Resting Blood Pressure: 132/68 Maximum Exercise Blood Pressure: 140/60 EKG Type: NSR to sinus tach BBB, rare PAC and PVC Current Physical Activity or Exercising minutes: 41 - Outcomes & Goals Goals:: Verbalizes understanding of THR, RPE & goal METS by session 6, Documents in home exercise log/reports 30 min aerobic 5 day/wk by DC, Demonstrates accurate pulse taking by DC - Intervention & Plan Exercise Program Goals: Instruct on personal THR & RPE, Instruct on MET level & personal MET goal, Show patient to take own pulse /validate performance until accurate, Instruct on home exercise - 30-day Reassessments 30 day Reassessments:: Progressing - Physical Activity Home Exercise Physical Activity - Home Exercise: Safe Exercise, Warm-up, Self-monitoring, Cool-Down, Home Exercise > 30 min Daily, Sitting Time <3 hours/daily - Outcomes & Goals Outcomes/Goals: Demonstrates correct Warm-up/exercise Cool-Down (S3) if = 2.5 METs, Verbalizes symptoms of exercise intolerance by Session 3 (S3), Demonstrate safe equipment use (S3) & follows exercise prescrition (6) - Intervention & Plan Plan/Intervention: Instruct warm-up & cool-down if exercising at > 2 METs, Instruct on symptoms of exercise intolerance & actions to take, Instruct & monitor on saf, Assess intial functional capacity & safety risk - 30-day Reassessments 30 day Reassessments:: Progressing Nutrition - Initial Assessment Nutrition - 30-Day Assessment - Program Goals Nutrition Program Goals: LDL <100 optimal. 100 - 129 Near optimal. 130 - 159 Borderline High. 160 - 189 High. Total Cholesterol <200 desirable. 200 - 239 Borderline High. >/= 240 High. HDL < 40 Low >/=60 High. Triglycerides <150 desirable. <199 optimal. VlDL 5 - 40. HgbA1C <7%. BMI <25 Patient has diagnosis of Hyperlipidemia (ICD E78)?: Yes - Visit Date of Assessment:: 12/31/20 Session #:: 10 - Cholesterol/Lipids Triglycerides (mg/dL): 159 Total Cholesterol (mg/dL): 215 LDL Cholesterol (mg/dL): 133 HDL Cholesterol (mg/dL): 50 Determine presence & major risk factors that modify LDL goal: Hypertension or hypertensive medication, Low HDL cholesterol <40 mg/dL*, Family history of premature CHD in Male < 55 years: female <65 yearsFa, Age men > 45 years; women >/= 55 years Outcomes/Goals: Pt IDs own risk factors & lifestyle modifications by Session 10, Verbalizes symptoms of angina & response by session 3., Pt independently manages Intervention/Plan: Instruct on personal lipid levels & lipid goals/NCEP guidelines, Instruct on cholesterol Referral to dietitian:: Yes - Medical Nutrition Therapy 30-day Reassessments:: Progressing - Diabetes (Other Core Measures) Diabetes Type: Diagnosis Type II ICD-10 E11 Fasting blood glucose:: 192 Hgb A1C (4.2 -6.3): 9.9 Insulin dependent injection/pump?: Yes Non-Insulin Dependent?: Yes Do you monitor your blood sugar at home?: Yes Referral to Diabetic Clinic:: Yes Outcomes/Goals:: Able to state symptoms of, Able to state, Able to state Intervention/Plan:: Instruct on, Refer to, Instruct on 30-day Reassessments:: Progressing - Weight Mgt (Other Care) Not Applicable: Yes Height: 6 ft Weight:: 182 lb 8 oz BMI: 24.7 Diagnosis Overweight/Obesity BMI> 30% ICD-10 E66: No Diagnosis High BMI/Morbid Obesity BMI> 35% ICD-10 Z68: No Outcomes/Goals: Pt sets, maintains & shows weight loss goal & trend during rehab Intervention/Plan: Instruct on ideal BMI & set weight loss goal w/patient, Assist pt to ID & incorporate diet changes for weight loss by S9 30 day Reassessments:: Progressing - Healthy Eating Habits Will attend diet classes:: Yes Outcomes/Goals:: Consume diet rich in vegs,fruits,whole grain/high fiber,fish,lean meat, Limit sat/trans fats,cholesterol & added salts & sugars Intervention/Plan:: Assess current eating habits 30-day Reassessments:: Progressing - Education Gave educational materials for:: Signs & symptoms of hypoglycemia, Signs & symptoms of hyperglycemia, Relate diabetes to coronary artery disease, Healthy eating Nutrition - 60-Day Assessment Nutrition - 90-Day Assessment Nutrition - Final Assessment Medical - Initial Assessment Medical- 30-Day Assessment - Visit Date of Eval: 12/31/20 Session #:: 10 - Medication Compliance Preventative Medication(s):: Aspirin, Statin/lipid, Beta binu H/O mental health issues: depression, anxiety, or addiction?: No Doesn?t believe in the benefits of treatment?: No Believes medications are unnecessary or harmful?: No Has a concern about medication side effects?: No Expresses concern over the cost of medications?: No Outcomes/Goals: Verbalizes medications,desired effect & common side effects @ DC, Pt self-reports following medication regimen, Keeps card in wallet w/medications listed by DC Interventions/plans: Instruct on medication effects & side effects, Review medication list w/patient every two weeks, Instruct importance of taking meds as ordered & assist problem solving 30-day Reassessments:: Progressing - Tobacco Use Tobacco Use: Non-smoker - Hypertension Hypertension Diagnosis:: Hypertension ICD-10 I10 Resting Blood Pressure:: 132/68 [place] [employer] Hypertension Guidelines: [place] [employer] Hypertension Guidelines. Normal BP Less than 120/80. Elevated BP 120/80. Hypertension Stage 1: BP 130-139/80-89. Hypertesnion Stage 2: BP 140 or higher/90 or higher. Hypertension Crisis: BP higher than 180/120 Peak Exercise Blood Pressure:: 140/60 Outcomes/Goals: Able to verbalize/achieve optimal blood pressure <130/80, Incorporates diet changes & exercise for blood pressure control by DC Interventions/plan: Instruct on optimal blood pressure, hypertension & medications, Instruct on effects of sodium, alcohol, stress, exercise &hypertension 30 day Reassessments:: Progressing - Tobacco Cessation Referral Smoking Cessation Referral:: No Individual Education/Counseling:: No Education Schedule Given:: Yes Medical- 60-Day Assessment Medical- 90-Day Assessment Medical - Final Assessment Psychosocial - Initial Assess Psychosocial - 30-Day Assess - VIsit Date of Eval: 12/31/20 Session #:: 10 Not Applicable: Yes History of previous Mental disease:: No - Psychosocial Test Tool Used:: PHQ-9 Questionnaire phq-9 Severity: Severity. 1-4 Minimal Depression. 5-9 Mild Depression. 10-14 Moderate Depression. 15-19 Moderately Sever Depression. 20-27 Severe Depression. Rule: Total Score:: 2 - Referral to Behavioral Health PS - Interventions: Yes Attend Stress Management Classes, No Referral to Behavioral Health if PHQ-9 score >9:, No Referral to [facility], No Referral to Physician if PHQ-9 if score is 5-9: - Intervention/Plan: See List Interventions/Plan:: Assess stressors,coping strategies & signs of derpression on admission, Instruct/assist pt to develop coping & personal stress Mgt strategies, Instruct patient to recognize signs & symptoms of depression, Instruct patient to recog - 30-day Reassessments: 30 day Reassessments:: Progressing Psychosocial - 60-Day Assess Psychosocial - 90-Day Assess Psychosocial - Final Assessmen Patient Health Questionnaire 30-Day Re-eval Assessment 1. Little interest or pleasure in doing things: Not at all 2. Feeling down, depressed, or hopeless: Not at all 3. Trouble falling or staying asleep, or sleeping too much: Several days 4. Feeling tired or having little energy: Several days 5. Poor appetite or overeating: Not at all 6. Feeling bad about yourself -- or that you are a failure or have let yourself or your family down: Not at all 7. Trouble concentrating on things, such as reading the newspaper or watching television: Not at all 8. Moving or speaking so slowly that other people could have noticed. Or the opposite - being so fidgety or restless that you have been moving around a lot more than usual: Not at all 9. Thoughts that you would be better off , or of hurting yourself in some way: Not at all How difficult have these problems made it for you to do your work, take care of things at home, or get along with other people?: Not difficult at all Total Score: 2 Self-Efficacy 30-Day Re-eval Assessment We would like to know how confident you are in doing certain activities. Please select your confidence level for:: Select your confidence level for the following using the scale 1-10 where 1 is not at all confident and 10 is totally confident. Your score is the average of all 6 responses. Fatigue: How confident are you that you can keep the fatigue caused by your disease from interfering with the things you want to do? Select Number: 8 Physical Discomfort or Pain: How confident are you that you can keep the physical discomfort or pain of your disease from interfering with the things you want to do? Select Number: 8 Emotional Distress: How confident are you that you can keep the emotional distress caused by your disease from interfering with the things you want to do? Select Number: 9 Other Symptoms or Health Problems: How confident are you that you can keep other symptoms or health problems from interfering with the things you want to do? Select Number: 9 Different Tasks and Activities: How confident are you that you can do the different tasks and activities needed to manage your health condition so as to reduce your need to see a doctor? Select Number: 9 Medication: How confident are you that you can do things other than just taking medication to reduce how much your illness affects your everyday life? Select Number: 9 Total Score:: 8 Nutrition Survey
[2020-12-31 14:03] VITALS: BP 132/68; BP 140/60; BMI 24.7
== END 2021-01-18 23:59 ==
LOC: CR 08:00
PROVIDERS: PCP Family Medicine; Referring Provider Internal Medicine Cardiovascular Disease; Visit Provider Internal Medicine Cardiovascular Disease
DX: I25.10 Atherosclerotic heart disease of native coronary artery without angina pectoris (principal); I34.0 Nonrheumatic mitral (valve) insufficiency; I25.3 Aneurysm of heart; I27.21 Secondary pulmonary arterial hypertension; Z95.1 Presence of aortocoronary bypass graft; Z95.3 Presence of xenogenic heart valve
CPT/HCPCS: 93798

== ENCOUNTER 2021-02-16 08:00 | Outpatient (RCR) | payer MEDICARE, SELFPAY ==
[2020-12-31 14:03] VITALS: BMI 24.7
[2021-01-19 00:35] VITALS: BP 132/68; BP 140/60
--- NOTE | 2021-01-26 11:24 | CR.ITP_ITS ---
Diagnosis Exercise - 60-day Assessment - Visit Date of Eval: 01/26/21 Session #:: 20 - Physician Prescribed Exercise Modalities: Treadmill, Airdyne, NuStep Frequency: 3x/week for 12 weeks [36 sessions] Intensity: 60-80% of age predicted maximum heart rate reserve Current METSs:: 7 Target Heart Rate:: 100-130 Current RPE:: 13 Maximum Excercise HR:: 123 Resting Blood Pressure: 130/78 Maximum Exercise Blood Pressure: 142/62 EKG Type: NSR to ST (BBB). T wave inversion - Outcomes & Goals Goals:: Verbalizes understanding of THR, RPE & goal METS by session 6, Documents in home exercise log/reports 30 min aerobic 5 day/wk by DC, Demonstrates accurate pulse taking by DC, Other additional outcome/goals: see below - Intervention & Plan Exercise Program Goals: Instruct on personal THR & RPE, Instruct on MET level & personal MET goal, Show patient to take own pulse /validate performance until accurate, Instruct on home exercise, Other additional plan/int - 30-day Reassessments 30 day Reassessments:: Progressing - Physical Activity Home Exercise Physical Activity - Home Exercise: Safe Exercise, Warm-up, Self-monitoring, Cool-Down, Home Exercise > 30 min Daily, Sitting Time <3 hours/daily - Outcomes & Goals Outcomes/Goals: Demonstrates correct Warm-up/exercise Cool-Down (S3) if = 2.5 METs, Verbalizes symptoms of exercise intolerance by Session 3 (S3), Demonstrate safe equipment use (S3) & follows exercise prescrition (6), Other: See below - Intervention & Plan Plan/Intervention: Instruct warm-up & cool-down if exercising at > 2 METs, Instruct on symptoms of exercise intolerance & actions to take, Instruct & monitor on saf, Assess intial functional capacity & safety risk, Other See below - 30-day Reassessments 30 day Reassessments:: Progressing Nutrition - Initial Assessment Nutrition - 30-Day Assessment Nutrition - 60-Day Assessment - Program Goals Nutrition Program Goals: LDL <100 optimal. 100 - 129 Near optimal. 130 - 159 Borderline High. 160 - 189 High. Total Cholesterol <200 desirable. 200 - 239 Borderline High. >/= 240 High. HDL < 40 Low >/=60 High. Triglycerides <150 desirable. <199 optimal. VlDL 5 - 40. HgbA1C <7%. BMI <25 Patient has diagnosis of Hyperlipidemia (ICD E78)?: Yes - Visit Date of Assessment:: 01/26/21 Session #:: 20 - Cholesterol/Lipids Determine presence & major risk factors that modify LDL goal: Hypertension or hypertensive medication, Low HDL cholesterol <40 mg/dL*, Family history of premature CHD in Male < 55 years: female <65 yearsFa, Age men > 45 years; women >/= 55 years Outcomes/Goals: Pt IDs own risk factors & lifestyle modifications by Session 10, Verbalizes symptoms of angina & response by session 3., Pt independently manages, Other Additional Outcomes/Goals: Intervention/Plan: Advocate for lipid panel cholesterol medication if applicable, Instruct on personal lipid levels & lipid goals/NCEP guidelines, Instruct on cholesterol, Other additional plan/int 30-day Reassessments:: Progressing - Diabetes (Other Core Measures) Diabetes Type: Diagnosis Type II ICD-10 E11 Insulin dependent injection/pump?: Yes Non-Insulin Dependent?: Yes Do you monitor your blood sugar at home?: Yes Referral to Diabetic Clinic:: Yes Outcomes/Goals:: Able to state symptoms of, Able to state, Able to state, Other additional Intervention/Plan:: Instruct on, Refer to, Instruct on, Other 30-day Reassessments:: Progressing - Weight Mgt (Other Care) Height: 6 ft Weight:: 83.461 kg BMI: 24.9 Outcomes/Goals: Pt sets, maintains & shows weight loss goal & trend during rehab, Other additional outcomes/goals Intervention/Plan: Instruct on ideal BMI & set weight loss goal w/patient, Assist pt to ID & incorporate diet changes for weight loss by S9, Refer to Structured Weight Loss program as appropriate, Encourage goal of using 250- 300dcal per session for weight loss, Other additional plan/interventions 30 day Reassessments:: Progressing - Healthy Eating Habits Will attend diet classes:: Yes Outcomes/Goals:: Consume diet rich in vegs,fruits,whole grain/high fiber,fish,lean meat, Limit sat/trans fats,cholesterol & added salts & sugars, Other additional outcome/goals: Intervention/Plan:: Assess current eating habits, Other Additional plan/interventions 30-day Reassessments:: Progressing - Education Gave educational materials for:: Signs & symptoms of hypoglycemia, Signs & symptoms of hyperglycemia, Relate diabetes to coronary artery disease, Healthy eating Nutrition - 90-Day Assessment Nutrition - Final Assessment Medical - Initial Assessment Medical- 30-Day Assessment Medical- 60-Day Assessment - Visit Date of Eval: 01/26/21 Session #:: 20 - Medication Compliance Preventative Medication(s):: Aspirin, Statin/lipid, Beta binu H/O mental health issues: depression, anxiety, or addiction?: No Doesn?t believe in the benefits of treatment?: No Believes medications are unnecessary or harmful?: No Has a concern about medication side effects?: No Expresses concern over the cost of medications?: No Outcomes/Goals: Verbalizes medications,desired effect & common side effects @ DC, Pt self-reports following medication regimen, Keeps card in wallet w/medications listed by DC, Other additional outcome/goals: Interventions/plans: Instruct on medication effects & side effects, Review medication list w/patient every two weeks, Instruct importance of taking meds as ordered & assist problem solving, Other additional 30-day Reassessments:: Progressing - Tobacco Use Tobacco Use: Non-smoker Do you use smokeless tobacco?: No 30-day Reassessments:: Progressing - Hypertension Hypertension Diagnosis:: Hypertension ICD-10 I10 Resting Blood Pressure:: 130/78 [place] [employer] Hypertension Guidelines: [place] [employer] Hypertension Guidelines. Normal BP Less than 120/80. Elevated BP 120/80. Hypertension Stage 1: BP 130-139/80-89. Hypertesnion Stage 2: BP 140 or highe r/90 or higher. Hypertension Crisis: BP higher than 180/120 Peak Exercise Blood Pressure:: 142/62 Outcomes/Goals: Able to verbalize/achieve optimal blood pressure <130/80, Incorporates diet changes & exercise for blood pressure control by DC, Other additional outcomes/goals Interventions/plan: Instruct on optimal blood pressure, hypertension & medications, Instruct on effects of sodium, alcohol, stress, exercise &hypertension, Other additional plan/interventions 30 day Reassessments:: Progressing - Tobacco Cessation Referral Smoking Cessation Referral:: No Individual Education/Counseling:: No Education Schedule Given:: Yes Medical- 90-Day Assessment Medical - Final Assessment Psychosocial - Initial Assess Psychosocial - 30-Day Assess Psychosocial - 60-Day Assess - VIsit Date of Eval: 01/26/21 Session #:: 20 History of previous Mental disease:: No - Outcomes/Goals: See list Psychosocial Outcomes/Goals:: ID's personal stressors & 2 strategies to manage stress by discharge, Other Additional outcome/goals: - Intervention/Plan: See List Interventions/Plan:: Assess stressors,coping strategies & signs of derpression on admission, Instruct/assist pt to develop coping & personal stress Mgt strategies, Refer to Behavioral Health if appropriate, Refer to Physician if appropriate, Instruct patient to recognize signs & symptoms of depression, Instruct patient to recog, Other additional plan/intervention - 30-day Reassessments: 30 day Reassessments:: Progressing Psychosocial - 90-Day Assess Psychosocial - Final Assessmen Patient Health Questionnaire 60-Day Re-eval Assessment 1. Little interest or pleasure in doing things: Not at all 2. Feeling down, depressed, or hopeless: Not at all 3. Trouble falling or staying asleep, or sleeping too much: Several days 4. Feeling tired or having little energy: Several days 5. Poor appetite or overeating: Not at all 6. Feeling bad about yourself -- or that you are a failure or have let yourself or your family down: Not at all 7. Trouble concentrating on things, such as reading the newspaper or watching television: Not at all 8. Moving or speaking so slowly that other people could have noticed. Or the opposite - being so fidgety or restless that you have been moving around a lot more than usual: Not at all 9. Thoughts that you would be better off , or of hurting yourself in some way: Not at all How difficult have these problems made it for you to do your work, take care of things at home, or get along with other people?: Not difficult at all Total Score: 2 Self-Efficacy 60-Day Re-eval Assessment We would like to know how confident you are in doing certain activities. Please select your confidence level for:: Select your confidence level for the following using the scale 1-10 where 1 is not at all confident and 10 is totally confident. Your score is the average of all 6 responses. Fatigue: How confident are you that you can keep the fatigue caused by your disease from interfering with the things you want to do? Select Number: 8 Physical Discomfort or Pain: How confident are you that you can keep the physical discomfort or pain of your disease from interfering with the things you want to do? Select Number: 8 Emotional Distress: How confident are you that you can keep the emotional distress caused by your disease from interfering with the things you want to do? Select Number: 9 Other Symptoms or Health Problems: How confident are you that you can keep other symptoms or health problems from interfering with the things you want to do? Select Number: 9 Different Tasks and Activities: How confident are you that you can do the different tasks and activities needed to manage your health condition so as to reduce your need to see a doctor? Select Number: 9 Medication: How confident are you that you can do things other than just taking medication to reduce how much your illness affects your everyday life? Select Number: 9 Total Score:: 8 Nutrition Survey
[2021-01-26 11:35] VITALS: BP 130/78; BP 142/62; BMI 24.9
== END 2021-02-18 23:59 ==
LOC: CR 08:00
PROVIDERS: PCP Family Medicine; Referring Provider Internal Medicine Cardiovascular Disease; Visit Provider Internal Medicine Cardiovascular Disease
DX: I25.10 Atherosclerotic heart disease of native coronary artery without angina pectoris (principal); I34.0 Nonrheumatic mitral (valve) insufficiency; I25.3 Aneurysm of heart; I27.21 Secondary pulmonary arterial hypertension; Z95.1 Presence of aortocoronary bypass graft; Z95.3 Presence of xenogenic heart valve
CPT/HCPCS: 93798

== ENCOUNTER 2021-03-11 07:12 | Outpatient (CLI) | payer MEDICARE, SELFPAY ==
[2021-01-26 11:35] VITALS: BMI 24.9
[2021-03-11 08:34] LABS: AST(SGOT) 22 U/L (15-37); Alanine Aminotransfer ALT/SGPT 33 U/L (16-61); Albumin, Serum 3.3 g/dL (3.2-5.0); Alkaline Phosphatase 86 U/L (45-117); Bilirubin, Direct 0.13 mg/dL (0.00-0.30); Cholesterol 90 mg/dL (200); Globulin 3.8 g/dL (2.2-4.2); High Density Lipoprotein 44 mg/dL; Protein, Total 7.1 g/dL (6.4-8.2); Triglycerides 73 mg/dL; Very Low Density Lipoprotein 15 mg/dL (5-40)
== END 2021-03-11 23:59 | disposition short-term general hospital (02) ==
LOC: LAB 07:14
PROVIDERS: PCP Family Medicine; Referring Provider Internal Medicine Cardiovascular Disease; Visit Provider Internal Medicine Cardiovascular Disease
DX: E78.00 Pure hypercholesterolemia, unspecified (principal)
CPT/HCPCS: 36415; 80061; 80076

== ENCOUNTER → 2021-11-17 | Outpatient (CLI) | payer MEDICARE, SELFPAY ==
[2021-01-26 11:35] VITALS: BMI 24.9
[2021-11-17 09:46] LABS: Absolute Lymphocyte Count 1.11 X10^3/uL (0.83-4.51); Absolute Neutrophil Count 4.7 X10^3/uL (2.0-7.7); Basophil# 0.03 X10^3/uL; Basophil% 0.4 % (0-1); Eosinophil# 0.11 X10^3/uL; Eosinophils% 1.6 % (0-5); Hematocrit 38.4 % (40-54); Hemoglobin 12.9 g/dL (13.0-16.5); Lymphocyte # 1.11 X10^3/ul (0.83-4.51); Lymphocyte % 16.5 % (19-41); Mean Corp Hgb Conc 33.6 g/dL (32-36); Mean Corpuscular Hgb 30.7 pg (27.0-32.0); Mean Corpuscular Volume 91.4 fL (80-94); Monocyte# 0.79 X10^3/uL; Monocyte% 11.7 % (0-10); NRBC Flagged by Analyzer 0 % (0-5); Neutrophil # 4.69 X10^3/uL (2.7-7.7); Neutrophil % 69.7 % (47-70); Platelet Count 215 K/mm3 (150-450); RBC Distribution Width CV 12.9 % (11.6-14.6); White Blood Count 6.7 K/mm3 (4.4-11.0)
[2021-11-17 10:16] LABS: AST(SGOT) 32 U/L (15-37); Alanine Aminotransfer ALT/SGPT 36 U/L (16-61); Albumin, Serum 3.8 g/dL (3.2-5.0); Alkaline Phosphatase 84 U/L (45-117); Anion Gap 5 (5-15); BUN 25 mg/dL (7-18); BUN/Creat Ratio 21.9 RATIO (10-20); Calcium,Total 9.4 mg/dL (8.5-10.1); Chloride 105 mmol/L (98-107); Cholesterol 144 mg/dL (200); Creatinine, Serum 1.14 mg/dL (0.70-1.30); EST Glomerular Filtration Rate 68 mL/min (>60); Est Glom Filt Rate - Afr Amer 82 mL/min (>60); Globulin 3.7 g/dL (2.2-4.2); Glucose 162 mg/dL (74-106); High Density Lipoprotein 45 mg/dL; Potassium 4.3 mmol/L (3.5-5.1); Protein, Total 7.5 g/dL (6.4-8.2); Sodium Level 140 mmol/L (136-145); Triglycerides 117 mg/dL; Very Low Density Lipoprotein 23 mg/dL (5-40)
[2021-11-17 10:20] LABS: Hemoglobin A1c 8.3 % (3.8-5.6)
[2021-11-17 10:29] LABS: Microalbumin,Random Urine 78.5 mg/L (NO RANGE EST.); Microalbumin:Creatinine Ratio 37.9 mg/g CRE (<30 mg/g CRE)
== END | disposition home or self-care (01) ==
LOC: LAB 11-21 13:28
PROVIDERS: PCP Family Medicine; Referring Provider Family Medicine; Visit Provider Family Medicine
DX: I25.10 Atherosclerotic heart disease of native coronary artery without angina pectoris (principal); E11.9 Type 2 diabetes mellitus without complications; I10 Essential (primary) hypertension
CPT/HCPCS: 36415; 80053; 80061; 82043; 82570; 83036; 85025

== ENCOUNTER 2022-04-13 06:17 | Day surgery (SDC) | payer MEDICARE, SELFPAY ==
[2021-01-26 11:35] VITALS: BMI 24.9
[2022-04-13] MEDS: Lactated Ringers 1,000 ML 15 ML IV (06:39)
[2022-04-13 06:40] VITALS: BP 133/75; PULSE 81; RESP 18; TEMP 36.8; O2SAT 98; BMI 25.9
[2022-04-13 07:05] LABS: Bedside Glucose 164 mg/dL (74-106)
--- NOTE | 2022-04-13 07:30 | COLBX_PTH ---
PATIENT: EVE ONEIL Jr. LOC: EN U#:[id number] AGE/SX: 66/M ROOM: RE04/13/[address]: Dr. Richard Rosario MD : [id number] BED: DIS: 04/13/2022 SPEC #: [id number] RECD: 04/13/22 12:18 STATUS: CAMMIE BRISENO #: [id number] HUMBERTO: 04/13/22 07:[address]: Richard Rosario DEPT: SURGICAL PATHOLOGY RECD BY: Polina Tam ENTERED: 04/13/22 12:40 SP TYPE: COLON BX OTHR DR: Dr. Jaja Ramsey MD Tissues: Rectum, NOS Procedures: Surgery Specimen Level IV HEADER OPERATION: Colonoscopy (MAC) PRE-OP DIAGNOSIS: History of colon polyps TISSUE SUBMITTED: Rectal polyp MICROSCOPIC DIAGNOSIS Rectal polyp, biopsy: A fragment of colonic mucosa with changes consistent with benign mucosal polyp. Fragments of fecal material. SJ:annalisa 04/14/2022 MICROSCOPIC DESCRIPTION Slides are reviewed. GROSS DESCRIPTION Received in fixative is one container labeled with the patient's name and designated rectal polyp. The specimen consists of multiple irregular fragments of light valdez soft tissue mixed with fecal material that in aggregate measure 1.5 x 0.3 x 0.1 cm. The specimen is totally submitted in one cassette. / CECIL:annalisa 04/13/2022 TC:5 CPT: 46355
--- NOTE | 2022-04-13 07:34 | HP.PCM_ITS ---
History and Physical Date of Admission: 04/13/22 Acct: [id number] Name:VEE BOYER Jr. Rep #: [id number] : 1955 ? ? Provider: Dr. Richard Rosario MD Age/Sex:? 66/M ? ? Location: [facility] Status: Signed Intake Vital Signs ? 02/03/2108:35 03/06/2308:02 Height 6 ft 6 ft Weight: ? 195 lb 8 oz BMI ? 26.5 BP ? 163/77 H Blood Pressure Location ? Rt brachial Position ? Sitting Respiration ? 18 Pulse ? 83 Pulse Source ? Monitor Temp ? 97.2 F L Temp Source ? Temporal Pulse Oximetry (%) ? 95 Oxygen Delivery Method ? room air Intake Visit Reasons:?COLONOSCOPY Chief Complaint: colonoscopy consult Angiographer Required: No Is patient in pain?: No Allergies No Known Allergies Allergy (Unverified 03/06/22 09:04) Medications glipizide 10 mg tablet 10 mg PO DAILY 06/25/20 [History Confirmed 03/06/22] aspirin 81 mg tablet,delayed release 81 mg PO DAILY 07/22/20 [History Confirmed 03/06/22] insulin glargine 100 unit/mL (3 mL) subcutaneous pen (Lantus Solostar U-100 Insulin) 10 unit subcut DAILY 10/19/20 [History Confirmed 03/06/22] sitagliptin phosphate 100 mg tablet (Januvia) 100 mg PO DAILY 10/19/20 [History Confirmed 03/06/22] atorvastatin 40 mg tablet 40 mg PO QHS #90 tabs 01/05/22 [Rx Confirmed 03/06/22] lisinopril 2.5 mg tablet 2.5 mg PO DAILY 03/06/22 [History Confirmed 03/06/22] PFSH Medical History? Atherosclerotic heart disease of [place] coronary artery without angina pectoris Depression Diabetes mellitus Essential (primary) hypertension Hx of emotional problems Hyperlipidemia Left ventricular aneurysm Neuropathy Non-rheumatic tricuspid stenosis with insufficiency Nonrheumatic mitral (valve) insufficiency Pleural effusion Seasonal allergies Secondary pulmonary arterial hypertension Surgical History? H/O coronary artery bypass surgery (10/05/20) History of left heart catheterization (07/22/20) History of mitral valve replacement with bioprosthetic valve (10/05/20) History of thoracentesis (07/02/20) Family History? Mother Myocardial infarction Cancer ?? ? melanomaFather CVA (cerebral vascular accident)Brother HypertensionSister Cancer ?? ? breastDaughter CancerSister Thyroid disorder Social History?(Updated 03/06/22 @ 09:02 by Lillie Crow) Smoking Status:? Former smoker quit date: 02/19/69 pack-years: 2 Tobacco: How many years used:? 2 alcohol intake:? never substance use type:? does not use HPI HPI HPI: ?Patient is a 66-year-old male who presents for need to schedule surveillance colonoscopy secondary to history of colonic polyps and duration since prior scope.? They are referred for surgical consultation from Dr. Ramsey.? Patient has had prior colonoscopy (patient states that he actually had 2 prior colonoscopies).? Patient believes that his last colonoscopy was 12 years ago and exam was limited due to poor prep.? He reports that he was given a 1 year follow-up, but was too busy with his work in the [employer] industry to make this appointment.? He insists that he has not had any issues since that time.? He also notes a scope prior to this one 12 years ago where polyps were found.? He believes this was done in [place] by a Dr. Rose. Patient has no personal history of inflammatory bowel disease or diverticulitis. They describe their bowel habits as normal.? They have approximately 3-4 per day and spend roughly a few minutes on the toilet without significant straining.? They have not noticed recent bleeding or dark stools.? There is no history of hemorrhoids. Patient has a family history of colon cancer in a paternal uncle (roughly diagnosed at age 70) and for diverticulitis diagnosed in his mother and maternal grandfather..? ? The patient's weight is stable.? He reports that he has gained some weight to a healthier state since undergoing a significant cardiac procedure in 2020. The patient is not prescribed anticoagulants/blood thinners. Relevant prior abdominal surgical history includes: None. Patient does not have a significant history of GERD/heartburn As alluded to above, patient underwent CABG, heart aneurysmal repair, and mitral valve repair with a bioprosthetic valve in 2020.? He has had only occasional shortness of breath and fleeting chest pain since this time. ROS General General: No weight change, appetite, fatigue, colon cancer, breast cancer or weakness HEENT HEENT: Yes eye injury and eye surgery; No difficulty swallowing, swollen glands or hoarseness Endo Endocrine: Yes diabetes mellitus; No thyroid disease, thyroid cancer, Hair loss, heat intolerance or cold intolerance Skin Skin: Yes rash; No changing moles Breast Breast: No left breast lump, right breast lump, nipple discharge, breast pain, abnormal mammogram, abnormal US or breast enlargement Musc Musculoskeletal: No back problems, arthritis, rheumatoid arthritis, gout or joint pain Cardio Cardiovascular: Yes heart disease, high blood pressure and heart attack; No murmur, pacemaker, atrial fibrillation, heart stent, palpitations, shortness of breat with exertion or chest pain Psych Psychiatric: Yes anxiety; No depression or hearing voices Resp Respiratory: No shortness of breath, No sleep apnea, No cough, No COPD, No asthma, No emphysema and No wheezing Gastro Gastrointestinal: No abdominal pain, No nausea or vomiting, Yes diarrhea, No constipation, No blood in stool, No acid reflux, No hemorrhoids, No ulcers, No gallbladder problem and No black,tarry stools Felix Hematologic: No blood thinners, No blood disorders, No bleeding, No anemia and No blood clots Neuro Neurologic: No system reviewed and no additional complaints, except as documented, No as per HPI, No abnormal gait, No abnormal hearing, No abnormal movements, No abnormal speech, No behavioral changes, No burning sensations, No confusion, No convulsions, No disequilibrium, No dizziness, No localized weakness, No frequent falls, No headache(s), No lack of coordination, No loss of vision, No memory loss, Yes numbness, No other visual disturbances, No radicular pain, No restless legs, No sensory deficit, No syncope, Yes tingling, No tremor(s), No weakness and No other Exam Const General: cooperative, healthy appearing, comfortable and no acute distress Resp Effort & Inspection: normal respiratory effort Auscultation: no rales, no rhonchi and no wheezes Cardio Rate: regular rate Rhythm: regular rhythm GI Other: No scars, nondistended, soft, nontender to palpation x4 quadrants Assessment and Plan Assessment and Plan (1) History of colon polyps: ?Status:?Acute ?Comment: Is a 66-year-old male with a past history of colon polyps who was undergoing regular surveillance when he had a scope 12 years ago with limited exam secondary to poor prep.? Patient was given a 1 year follow-up exam recommendation, but never kept this on the account of getting busy with life.? Now that things have settled down, he is interested in making these maintenance exams.? He denies any personal concerns with respect to his bowel habits.? Given that he has had this experience with a poor prep, I would like for him to start liquids earlier than usual, but I am mindful of his glycemic status in light of his diabetes diagnosis. ?Plan: Plan will be to complete surveillance colonoscopy on first mutually agreeable date under local MAC.? Pre-procedure prep discussed and paper instructions provided.? 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 I would like patient to start his liquid diet earlier on the account of his prior poor prep scope. I have examined the patient and the H&P has been reviewed. There are no clinical changes since date of exam. Patient confirms that he completed his prep pedraza ccessfully and his output is now clear. We reviewed the expectations for the procedure as well as post procedure timelines for pathology results. Neither he nor his spouse have any questions so we will proceed to the endoscopy suite for colonoscopy as discussed above.
[2022-04-13 08:25] VITALS: BP 125/77; BP 133/75; PULSE 86; RESP 20; TEMP 36.4; O2SAT 97
--- NOTE | 2022-04-13 08:27 | OP.COLON_ITS ---
Patient Name: Thor Grey Procedure Date: 04/13/2022 7:10 AM Date of : 1955 Age: 66 Procedure: Colonoscopy Indications: Surveillance: Personal history of adenomatous polyps on last colonoscopy > 5 years ago Providers: Richard Rosario MD Medicines: See the Anesthesia note for documentation of the administered medications Patient Profile: Last Colonoscopy: more than 10 years ago. Complications: No immediate complications. Estimated blood loss: None. Procedure: Pre-Anesthesia Assessment: - The heart rate, respiratory rate, oxygen saturations, blood pressure, adequacy of pulmonary ventilation, and response to care were monitored throughout the procedure. After I obtained informed consent, the scope was passed under direct vision. Throughout the procedure, the patient's blood pressure, pulse, and oxygen saturations were monitored continuously. The pediatric colonoscope was introduced through the anus and advanced to the cecum, identified by the appendiceal orifice, IC valve and transillumination. The colonoscopy was somewhat difficult due to poor bowel prep. Successful completion of the procedure was aided by lavage. The patient tolerated the procedure well. The quality of the bowel preparation was fair. Scope In: 7:42:22 AM Scope Withdrawal Time 0 hours 25 minutes 9 seconds Scope Out: 8:19:31 AM Total Procedure Duration Time 0 hours 37 minutes 9 seconds Findings: Many small and large-mouthed diverticula were found in the sigmoid colon. No biopsies or other specimens were collected for this exam. A 5 mm, non-bleeding polyp was found in the rectum. The polyp was semi-pedunculated. The polyp was removed with a hot snare. Resection and retrieval were complete. Estimated blood loss: none. The retroflexed view of the distal rectum and anal verge was normal and showed no anal or rectal abnormalities. Impression: - Preparation of the colon was fair. - Diverticulosis in the sigmoid colon. No specimens collected. - One 5 mm, non-bleeding polyp in the rectum, removed with a hot snare. Resected and retrieved. - The distal rectum and anal verge are normal on retroflexion view. Recommendation: - Discharge patient to home (via wheelchair). - Resume previous diet today. - Continue present medications. - Await pathology results. - Repeat colonoscopy date to be determined after pending pathology results are reviewed for surveillance based on pathology results. - Telephone my office for pathology results in 1 week. Procedure Code(s): --- Professional --- 46408, Colonoscopy, flexible; with removal of tumor(s), polyp(s), or other lesion(s) by snare technique Diagnosis Code(s): --- Professional --- Z86.010, Personal history of colonic polyps K62.1, Rectal polyp K57.30, Diverticulosis of large intestine without perforation or abscess without bleeding CPT copyright 2017 [employer]. All rights reserved. The codes documented in this report are preliminary and upon net mobile developer review may be revised to meet current compliance requirements. Richard Rosario MD 04/13/2022 8:27:02 AM This report has been signed electronically. Number of Addenda: 0 Note Initiated On: 04/13/2022 7:10 AM
--- NOTE | 2022-04-13 08:28 | OP.CCLET_ITS ---
04/13/2022 Jaja Ramsey [place] [id number] [address] Re : Colonoscopy procedure for Thor Grey Dear Dr. Ramsey This procedure was performed on March. My impressions and recommendations are as follows: Impressions : - Preparation of the colon was fair. - Diverticulosis in the sigmoid colon. No specimens collected. - One 5 mm, non-bleeding polyp in the rectum, removed with a hot snare. Resected and retrieved. - The distal rectum and anal verge are normal on retroflexion view. Recommendations : - Discharge patient to home (via wheelchair). - Resume previous diet today. - Continue present medications. - Await pathology results. - Repeat colonoscopy date to be determined after pending pathology results are reviewed for surveillance based on pathology results. - Telephone my office for pathology results in 1 week. My findings are described in the full procedure note, which is enclosed. If I can be of further assistance, please feel free to contact me at Doctor phone number(s): , Work: . Sincerely, Richard Rosario MD 04/13/2022 8:27:02 AM This report has been signed electronically.
[2022-04-13 08:30] VITALS: BP 129/81; BP 133/75; PULSE 85; RESP 18; O2SAT 94
[2022-04-13 08:35] VITALS: BP 130/83; BP 133/75; PULSE 83; RESP 12; O2SAT 93
[2022-04-13 08:40] VITALS: BP 133/75; BP 138/86; PULSE 82; RESP 12; TEMP 36.4; O2SAT 94
[2022-04-13 08:48] VITALS: BP 133/75
== END 2022-04-13 08:58 | disposition home or self-care (01) ==
LOC: EN 06:19 → AC 06:20
PROVIDERS: PCP Family Medicine; Referring Provider Family Medicine; Visit Provider Surgery
PROC: 0DJD8ZZ Inspection of Lower Intestinal Tract, Via Natural or Artificial Opening Endoscopic (ICD-10-PCS; CPT 45378; principal; 2022-04-13 07:25)
DX: Z12.11 Encounter for screening for malignant neoplasm of colon (principal); E11.9 Type 2 diabetes mellitus without complications; Z86.010 Personal history of colon polyps; Z87.891 Personal history of nicotine dependence; K57.30 Diverticulosis of large intestine without perforation or abscess without bleeding; K62.1 Rectal polyp; I25.10 Atherosclerotic heart disease of native coronary artery without angina pectoris; I10 Essential (primary) hypertension; E78.00 Pure hypercholesterolemia, unspecified; Z79.899 Other long term (current) drug therapy
CPT/HCPCS: 45385; 82962; 88305; J7120; J2405

== ENCOUNTER → 2022-11-22 | Outpatient (CLI) | payer MEDICARE, SELFPAY ==
[2021-01-26 11:35] VITALS: BMI 24.9
[2022-11-22 12:36] LABS: Absolute Neutrophil Count 3.8 X10^3/uL (2.0-7.7); Basophil# 0.04 X10^3/uL; Basophil% 0.7 % (0-1); Eosinophil# 0.16 X10^3/uL; Eosinophils% 2.8 % (0-5); Hematocrit 37.1 % (40-54); Hemoglobin 11.6 g/dL (13.0-16.5); Lymphocyte % 15.8 % (19-41); Mean Corp Hgb Conc 31.3 g/dL (32-36); Mean Corpuscular Hgb 30.2 pg (27.0-32.0); Mean Corpuscular Volume 96.6 fL (80-94); Mean Platelet Vol. 11.7 fl (6.2-12.0); Monocyte# 0.77 X10^3/uL; Monocyte% 13.5 % (0-10); NRBC Flagged by Analyzer 0 % (0-5); Neutrophil # 3.83 X10^3/uL (2.7-7.7); Platelet Count 197 K/mm3 (150-450); RBC Distribution Width CV 13.2 % (11.6-14.6); RBC Distribution Width SD 46.4 fl (35.1-43.9); Red Blood Count 3.84 M/mm3 (4.6-6.2); White Blood Count 5.7 K/mm3 (4.4-11.0)
[2022-11-22 12:56] LABS: ALB/GLOB Ratio 1.1 RATIO (0.9-2.4); AST(SGOT) 30 U/L (15-37); Alanine Aminotransfer ALT/SGPT 40 U/L (16-61); Albumin, Serum 3.5 g/dL (3.2-5.0); Alkaline Phosphatase 70 U/L (45-117); Anion Gap 4 (5-15); BUN 22 mg/dL (7-18); BUN/Creat Ratio 19.6 RATIO (10-20); Calcium,Total 8.8 mg/dL (8.5-10.1); Chloride 109 mmol/L (98-107); Cholesterol 115 mg/dL (200); Creatinine, Serum 1.12 mg/dL (0.70-1.30); EST Glomerular Filtration Rate 69 mL/min (>60); Est Glom Filt Rate - Afr Amer 84 mL/min (>60); Globulin 3.3 g/dL (2.2-4.2); Glucose 130 mg/dL (74-106); High Density Lipoprotein 49 mg/dL; Protein, Total 6.8 g/dL (6.4-8.2); Sodium Level 141 mmol/L (136-145); Triglycerides 57 mg/dL; Very Low Density Lipoprotein 11 mg/dL (5-40)
[2022-11-22 13:44] LABS: Microalbumin,Random Urine 91.5 mg/L (NO RANGE EST.); Microalbumin:Creatinine Ratio 54.1 mg/g CRE (<30 mg/g CRE)
== END | disposition home or self-care (01) ==
LOC: BFHLAB 08:27
PROVIDERS: PCP Family Medicine; Referring Provider Family Medicine; Visit Provider Family Medicine
DX: Z00.00 Encounter for general adult medical examination without abnormal findings (principal); E11.9 Type 2 diabetes mellitus without complications; I10 Essential (primary) hypertension; I25.10 Atherosclerotic heart disease of native coronary artery without angina pectoris
CPT/HCPCS: 36415; 80053; 80061; 82043; 82570; 85025

== ENCOUNTER → 2023-07-18 | Outpatient (CLI) | payer MEDICARE, SELFPAY ==
[2021-01-26 11:35] VITALS: BMI 24.9
--- NOTE | 2023-07-18 13:55 | ECHOCS_ITS ---
Reason For Study: MV Replacement Procedure This was a 2D Doppler, Color Flow transthoracic echocardiogram. Contrast injection was performed. Exam performed in department. Left Ventricle Normal LV size. Left ventricular systolic function is normal. The estimated ejection fraction is 55 %. No regional wall motion abnormalities noted. Right Ventricle Normal RV size. Normal systolic function. Atria Normal left atrium. Normal right atrium. Mitral Valve Peak transmitral valve gradient 21 mmHg. Mean transmitral valve gradient 11 mmHg. Stable appearing bioprosthetic mitral valve apparatus. Tricuspid Valve Normal tricuspid valve. Moderate (2+) tricuspid valve insufficiency. Pulmonary artery systolic pressure is 60 mmHg. Moderate pulmonary hypertension. Aortic Valve Trisinus/trileaflet aortic valve. Mild focal aortic valve thickening. Pulmonic Valve The pulmonic valve is not well visualized. Great Vessels Mildly dilated aortic root. The pulmonary artery is normal size. Normal inferior vena cava. Pericardium/Pleural No pericardial effusion. Medication 22 gauge I.V. with prn adaptor inserted into left arm. Diluted definity 1ml given slow IV push to enhance endocardial definition. MMode/2D Measurements & Calculations LVIDd: 5.5 cm IVSd: 1.1 cm Ao root diam: 4.1 cm LVIDs: 4.2 cm LVPWd: 0.98 cm LA dimension: 4.1 cm RVDd: 4.6 cm FS: 24.5 % LAV(MOD-bp): 77.7 ml LVAd ap4: 38.6 cm2 LVAd ap2: 37.6 cm2 LAV(MOD-bp) Indexed: 36.3 ml/m2 LVLd ap4: 9.4 cm LVLd ap2: 9.9 cm LAV(MOD-sp2): 88.8 ml EDV(MOD-sp4): 130.3 ml EDV(MOD-sp2): 117.6 ml LAV(MOD-sp4): 62.6 ml EDV(sp4-el): 135.1 ml EDV(sp2-el): 120.9 ml LVAs ap4: 29.0 cm2 LVAs ap2: 23.0 cm2 LVLs ap4: 8.8 cm LVLs ap2: 8.1 cm ESV(MOD-sp4): 81.0 ml ESV(MOD-sp2): 53.4 ml ESV(sp4-el): 81.0 ml ESV(sp2-el): 55.6 ml EF(MOD-sp4): 37.9 % EF(MOD-sp2): 54.6 % EF(sp4-el): 40.0 % SV(MOD-sp4): 49.3 ml SV(MOD-sp2): 64.2 ml SV(sp4-el): 54.0 ml LA A4 area: 22.2 cm2 RA A4 area: 17.2 cm2 TAPSE: 2.2 cm Doppler Measurements & Calculations Lat Peak E' Gadiel: 9.3 cm/sec Med Peak E' Gadiel: 5.7 cm/sec MV V2 max: 228.8 cm/sec MV max P.9 mmHg MV V2 mean: 158.3 cm/sec MV mean P.9 mmHg MV V2 VTI: 65.1 cm MV P1/2t max gadiel: 231.9 cm/sec Ao V2 max: 122.0 cm/sec LV V1 max: 119.2 cm/sec MV P1/2t: 95.8 msec Ao max P.0 mmHg LV V1 max P.7 mmHg MV dec slope: 708.9 cm/sec2 MVA(P1/2t): 2.3 cm2 PA V2 max: 109.4 cm/sec TR max gadiel: 373.4 cm/sec PA V2 mean: 79.1 cm/sec TR max P.8 mmHg ECHO/Echo Complete W/ Contrast Interpretation Summary Normal LV size. Left ventricular systolic function is normal. The estimated ejection fraction is 55 %. Stable appearing bioprosthetic mitral valve apparatus. Mean transmitral valve gradient 11 mmHg. Contrast injection was performed. Ordering Physician: Kacie Deshpande Referring Physician: Kacie Deshpande Performed By: Chu Ac RCS
== END | disposition home or self-care (01) ==
PROVIDERS: PCP Family Medicine; Referring Provider Nurse Practitioner Gerontology; Visit Provider Nurse Practitioner Gerontology
DX: Z95.3 Presence of xenogenic heart valve (principal)
CPT/HCPCS: 93306; Q9957; A4216; C8929

== ENCOUNTER → 2023-12-10 | Outpatient (CLI) | payer MEDICARE, SELFPAY ==
[2021-01-26 11:35] VITALS: BMI 24.9
--- OUTSIDE RECORDS SUMMARY | 2023-12-10 09:48 | XMS RPT_ITS | CCD ---
Author Organization [facility] Care Team Providers Care [employer] Molder Name Role Phone GeorgiaJaja sanabria Terri Primary Care Provider Froylan Bella Unavailable Zafar Rose MD Unavailable Medications Completed/Discontinued Medications Medication Drug Class(es) Dates Sig (Normalized) Sig (Original) atorvastatin 40 mg oral tablet (1 source) HMG-CoA Reductase Inhibitor Start: 09-14-2020 take 1 tablet by mouth once daily atorvastatin (LIPITOR) 40 mg tablet Take 1 tablet by mouth once daily. 90 tablet 3 09/14/2020 Active Comment on above: Take 1 tablet by thais th once daily. furosemide 40 mg oral tablet (1 source) Loop Diuretic Start: 07-06-2020 End: 10-11-2020 take 1 tablet by mouth once daily furosemide (LASIX) 40 mg tablet Take 40 mg by mouth once daily. 0 07/06/2020 10/11/2020 Discontinued Comment on above: Take 40 mg by mouth once daily. glipiZIDE 10 mg oral tablet (1 source) Sulfonylurea Start: 07-17-2020 End: 10-11-2020 take 1 tablet by mouth twice daily glipiZIDE (GLUCOTROL) 10 mg tablet Take 10 mg by mouth twice daily. 0 07/17/2020 10/11/2020 Discontinued Comment on above: Take 10 mg by mouth twice daily. lisinopril 5 mg oral tablet (2 sources) Angiotensin Converting Enzyme Inhibitor Start: 09-08-2020 End: 10-11-2020 take 1 tablet by mouth once daily lisinopril (ZESTRIL, PRINIVIL) 5 mg tablet Take 1 tablet by mouth once daily. 90 tablet 3 09/09/2020 09/22/2020 Discontinued (Discontinued by another Health Care Provider) Comment on above: Take 1 tablet by thais th once daily. SITagliptin 25 mg oral tablet (1 source) Dipeptidyl Peptidase 4 Inhibitor Start: 08-02-2020 End: 10-11-2020 take 1 tablet by mouth once daily JANUVIA 25 mg tablet Take 25 mg by mouth once daily. 0 08/02/2020 10/11/2020 Discontinued Comment on above: Take 25 mg by mouth once daily. Problems Active Problems Problem Classification Problem Date Documented Da te Episodic/Chronic Coagulation and hemorrhagic disorders (1 source) Platelet count below reference range; Translations: [Thrombocytopenia, unspecified] Onset: 10-07-2020 02-15-2021 Chronic Congestive heart failure; nonhypertensive (1 source) Acute on chronic systolic heart failure; Translations: [Acute on chronic systolic (congestive) heart failure] Onset: 10-04-2020 10-11-2020 Chronic Coronary atherosclerosis and other heart disease (1 source) Coronary atherosclerosis; Translations: [Atherosclerotic heart disease of [place] coronary artery with unspecified angina pectoris] Onset: 10-04-2020 10-11-2020 Chronic Diabetes mellitus without complication (1 source) Type 2 diabetes mellitus; Translations: [Type 2 diabetes mellitus without complications] Onset: 10-04-2020 02-15-2021 Chronic Disorders of lipid metabolism (1 source) Hyperlipidemia; Translations: [Hyperlipidemia, unspecified] Onset: 10-08-2020 10-11-2020 Chronic Essential hypertension (1 source) Hypertensive disorder; Translations: [Essential (primary) hypertension] Onset: 10-08-2020 10-11-2020 Chronic Heart valve disorders (1 source) Non-rheumatic mitral regurgitation ; Translations: [Nonrheumatic mitral (valve) insufficiency] Onset: 10-04-2020 10-11-2020 Chronic Other and ill-defined heart disease (1 source) Ventricular aneurysm; 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 Other and ill-defined heart disease (1 source) Left ventricular aneurysm; Translations: [Aneurysm of heart] Onset: 10-04-2020 10-11-2020 Chronic Past or Other Problems Problem Classification Problem Date Documented Date Episodic/Chronic Administrative/social admission (2 sources) Discharge status; Translations: [Encounter for administrative examinations, unspecified] Onset: 09-30-2020 10-11-2020 Episodic Genitourinary symptoms and ill-defined conditions (1 source) Retention of urine; Translations: [Retention of urine, unspecified] Onset: 10-08-2020 10-11-2020 Episodic Other nervous system disorders (1 source) Postoperative pain ; Translations: [Other acute postprocedural pain] Onset: 10-04-2020 10-11-2020 Episodic Pleurisy; pneumothorax; pulmonary collapse (1 source) Atelectasis; Translations: [Atelectasis] Onset: 10-04-2020 10-11-2020 Episodic Results Test Name Value Interpretation Reference [facility] CBCon 10-18-2020 Absolute nRBC <0.01 Normal <0.01 [facility] Comment on above: Performed By: #### C MP, CBC ####[place] [phone] Erythrocyte distribution width (RBC) [Ratio] 14.1 % Normal 11.5-15.0 [facility] Comment on above: Performed By: #### C MP, CBC ####[place] [phone] Hematocrit (Bld) [Volume fraction] 34.1 % Low 39.0-51.0 [facility] Comment on above: Performed By: #### C MP, CBC ####[place] [phone] Hemoglobin (Bld) [Mass/Vol] 10.8 g/dL Low 13.0-17.0 [facility] Comment on above: Performed By: #### C MP, CBC ####[place] [phone] MCH 28.9 pG Normal 26.0-34.0 [facility] Comment on above: Performed By: #### C MP, CBC ####[address] [phone] MCHC (RBC) [Mass/Vol] 31.7 g/dL Normal 30.5-36.0 [facility] Comment on above: Performed By: #### C MP, CBC ####[place] [address] [address], [place] [phone] MCV (RBC) [Entitic vol] 91.2 fL Normal 80.0-100.0 [facility] Comment on above: Performed By: #### C MP, CBC ####[place] [address] [address], [place] [phone] Platelet mean volume (Bld) [Entitic vol] 10.1 fL Normal 9.0-12.7 [facility] Comment on above: Performed By: #### C MP, CBC ####[place] [address] [address], [place] [phone] Platelets (Bld) [#/Vol] 441 10*3/uL High 150-400 [facility] Comment on above: Performed By: #### C MP, CBC ####[place] [address] [address], [place] [phone] RBC (Bld) [#/Vol] 3.74 10*6/uL Low 4.20-6.00 [facility] Comment on above: Performed By: #### C MP, CBC ####[place] [address] [address], [place] [phone] WBC (Bld) [#/Vol] 9.43 10*3/uL Normal 3.70-11.00 [facility] Comment on above: Performed By: #### C MP, CBC ####[place] [address] [address], [place] [phone] CNOVon 10-18-2020 CNOV Normal [facility] Comp Metabolic Panelon 10-18 Albumin [Mass/Vol] 4.2 g/dL Normal 3.9-4.9 [facility] Comment on above: Performed By: #### C MP, CBC ####[facility], [place] [phone] ALP [Catalytic activity/Vol] 148 U/L High 38-113 [facility] Comment on above: Performed By: #### C MP, CBC ####[place] [address] [address], [place] [phone] ALT [Catalytic activity/Vol] 26 U/L Normal 10-54 [facility] Comment on above: Performed By: #### C MP, CBC ####[place] [address] [address] [place] [phone] Anion gap [Moles/Vol] 11 mmol/L Normal 9-18 [facility] Comment on above: Performed By: #### C MP, CBC ####[place] [address] [address] [phone] AST [Catalytic activity/Vol] 18 U/L Normal 14-40 [facility] Comment on above: Performed By: #### C MP, CBC ####[place] [address] [address] [place] [phone] Bilirubin [Mass/Vol] 0.5 mg/dL Normal 0.2-1.3 [facility] Comment on above: Performed By: #### C MP, CBC ####[facility] [place] [phone] Calcium [Mass/Vol] 9.8 mg/dL Normal 8.5-10.2 [facility] Comment on above: Performed By: #### C MP, CBC ####[facility] [place] [phone] Chloride [Moles/Vol] 100 mmol/L Normal 97-105 [facility] Comment on above: Performed By: #### C MP, CBC ####[facility] [place] [phone] CO2 [Moles/Vol] 27 mmol/L Normal 22-30 [facility] Comment on above: Performed By: #### C MP, CBC ####[place] [address] [place], [place] [phone] Creatinine [Mass/Vol] 0.96 mg/dL Normal 0.73-1.22 [facility] Comment on above: Performed By: #### C MP, CBC ####[address] [phone] eGFR- Amer. >60 Normal [facility] Comment on above: Performed By: #### C MP, CBC ####[address] [phone] eGFR-All Other Races >60 Normal [facility] Comment on above: Result Comment: eGFR (Estimated GFR) Units of measure: mL/min/1.73 meters squaredeGFR is derived from the reexpressed MDRD Study equation using the following parameters: serum creatinine, age, gender and race. The creatinine assay has been calibrated to be traceable to IDMS.An eGFR <60 mL/min/1.73m2 for >3 months is consistent with chronic kidney disease. Refer to KDOQI guidelines for clinical interpretation.In patients with unstable renal function, e.g. those with acute kidney injury, the eGFR may not accurately reflect actual GFR. Performed By: #### C MP, CBC ####[address] [phone] Glucose [Mass/Vol] 184 mg/dL High 74-99 [facility] Comment on above: Result Comment: The [place] [employer] (ADA) provides guidance for cutoff values for fasting glucose and random glucose. The ADA defines fasting as no caloric intake for at least 8 hours. Fasting plasma glucose results between 100 to 125 mg/dL indicate increased risk for diabetes (prediabetes).Fasting plasma glucose results greater than or equal to 126 mg/dL meet the criteria for diagnosis of diabetes. In the absence of unequivocal hyperglycemia, results should be confirmed by repeat testing. In a patient with classic symptoms of hyperglycemia or hyperglycemic crisis, random plasma glucose results greater than or equal to 200 mg/dL meet the criteria for diagnosis of diabetes.Reference: Standards of Medical Care in Diabetes 2016, [place] [employer]. Diabetes Care. 2016.39(Suppl 1). Performed By: #### C MP, CBC ####[place] [address] [address] [place], [place] [phone] Potassium [Moles/Vol] 4.8 mmol/L Normal 3.7-5.1 [facility] Comment on above: Performed By: #### C MP, CBC ####[place] [address] [address], [place] [phone] Protein [Mass/Vol] 7.3 g/dL Normal 6.3-8.0 [facility] Comment on above: Performed By: #### C MP, CBC ####[place] [address] [address], [place] [phone] Sodium [Moles/Vol] 138 mmol/L Normal 136-144 [facility] Comment on above: Performed By: #### C MP, CBC ####[place] [address] [address], [place] [phone] Urea nitrogen [Mass/Vol] 19 mg/dL Normal 9-24 [facility] Comment on above: Performed By: #### C MP, CBC ####[place] [address] [address], [place] [phone] XR CHEST 2V FRONTAL/LATon XR CHEST 2V FRONTAL/LAT Normal [facility] CNPNon 10-14-2020 CNPN Normal [facility] ALLIED HEALTHon 10-11-2020 ALLIED HEALTH Normal [facility] CASE MANAGEMon 10-11-2020 CASE MANAGEM Normal [facility] CBCon 10-11-2020 Absolute nRBC <0.01 Normal <0.01 [facility] Comment on above: Performed By: #### C MP, CBC ####[place] [address] [address], [place] [phone] Erythrocyte distribution width (RBC) [Ratio] 15.3 % High 11.5-15.0 [facility] Comment on above: Performed By: #### C MP, CBC ####[place] [address] [address], [place] [phone] Hematocrit (Bld) [Volume fraction] 28.9 % Low 39.0-51.0 [facility] Comment on above: Performed By: #### C MP, CBC ####[place] [address] [address], [place] [phone] Hemoglobin (Bld) [Mass/Vol] 9.4 g/dL Low 13.0-17.0 [facility] Comment on above: Performed By: #### C MP, CBC ####[place] [address] [address], [place] [phone] MCH 28.7 pG Normal 26.0-34.0 [facility] Comment on above: Performed By: #### C MP, CBC ####[place] [address] [address], [place] [phone] MCHC (RBC) [Mass/Vol] 32.5 g/dL Normal 30.5-36.0 [facility] Comment on above: Performed By: #### C MP, CBC ####[place] [address] [address], [place] [phone] MCV (RBC) [Entitic vol] 88.4 fL Normal 80.0-100.0 [facility] Comment on above: Performed By: #### C MP, CBC ####[place] [address] [address], [place] [phone] Platelet mean volume (Bld) [Entitic vol] 10.4 fL Normal 9.0-12.7 [facility] Comment on above: Performed By: #### C MP, CBC ####[place] [address] [address], [place] [phone] Platelets (Bld) [#/Vol] 214 10*3/uL Normal 150-400 [facility] Comment on above: Performed By: #### C MP, CBC ####[place] [address] [address], [place] [phone] RBC (Bld) [#/Vol] 3.27 10*6/uL Low 4.20-6.00 [facility] Comment on above: Performed By: #### C MP, CBC ####[place] [address] [address], [place] [phone] WBC (Bld) [#/Vol] 7.39 10*3/uL Normal 3.70-11.00 [facility] Comment on above: Performed By: #### C MP, CBC ####[place] [address] [address], [place] [phone] CONSULT PROGon 10-11-2020 CONSULT PROG Normal [facility] Comp Metabolic Panelon 10-11 Albumin [Mass/Vol] 3.3 g/dL Low 3.9-4.9 [facility] Comment on above: Performed By: #### C MP, CBC ####[place] [address] [address], [place] [phone] ALP [Catalytic activity/Vol] 128 U/L High 38-113 [facility] Comment on above: Performed By: #### C MP, CBC ####[place] [address] [address], [place] [phone] ALT [Catalytic activity/Vol] 21 U/L Normal 10-54 [facility] Comment on above: Performed By: #### C MP, CBC ####[facility], [place] [phone] Anion gap [Moles/Vol] 10 mmol/L Normal 9-18 [facility] Comment on above: Performed By: #### C MP, CBC ####[place] [address] [address], [place] [phone] AST [Catalytic activity/Vol] 22 U/L Normal 14-40 [facility] Comment on above: Performed By: #### C MP, CBC ####[place] [address] [address], [place] [phone] Bilirubin [Mass/Vol] 0.5 mg/dL Normal 0.2-1.3 [facility] Comment on above: Performed By: #### C MP, CBC ####[place] [address] [address], [place] [phone] Calcium [Mass/Vol] 8.9 mg/dL Normal 8.5-10.2 [facility] Comment on above: Performed By: #### C MP, CBC ####[place] [address] [address], [place] [phone] Chloride [Moles/Vol] 101 mmol/L Normal 97-105 [facility] Comment on above: Performed By: #### C MP, CBC ####[place] [address] [address], [place] [phone] CO2 [Moles/Vol] 27 mmol/L Normal 22-30 [facility] Comment on above: Performed By: #### C MP, CBC ####[place] [address] [address], [place] [phone] Creatinine [Mass/Vol] 0.80 mg/dL Normal 0.73-1.22 [facility] Comment on above: Performed By: #### C MP, CBC ####[place] [address] [address], [place] [phone] eGFR- Amer. >60 Normal [facility] Comment on above: Performed By: #### C MP, CBC ####[place] [address] [address], [place] [phone] eGFR-All Other Races >60 Normal [facility] Comment on above: Result Comment: eGFR (Estimated GFR) Units of measure: mL/min/1.73 meters squaredeGFR is derived from the reexpressed MDRD Study equation using the following parameters: serum creatinine, age, gender and race. The creatinine assay has been calibrated to be traceable to IDMS.An eGFR <60 mL/min/1.73m2 for >3 months is consistent with chronic kidney disease. Refer to KDOQI guidelines for clinical interpretation.In patients with unstable renal function, e.g. those with acute kidney injury, the eGFR may not accurately reflect actual GFR. Performed By: #### C MP, CBC ####[address] [phone] Glucose [Mass/Vol] 163 mg/dL High 74-99 [facility] Comment on above: Result Comment: The [place] [employer] (ADA) provides guidance for cutoff values for fasting glucose and random glucose. The ADA defines fasting as no caloric intake for at least 8 hours. Fasting plasma glucose results between 100 to 125 mg/dL indicate increased risk for diabetes (prediabetes).Fasting plasma glucose results greater than or equal to 126 mg/dL meet the criteria for diagnosis of diabetes. In the absence of unequivocal hyperglycemia, results should be confirmed by repeat testing. In a patient with classic symptoms of hyperglycemia or hyperglycemic crisis, random plasma glucose results greater than or equal to 200 mg/dL meet the criteria for diagnosis of diabetes.Reference: Standards of Medical Care in Diabetes 2016, [place] [employer]. Diabetes Care. 2016.39(Suppl 1). Performed By: #### C MP, CBC ####[place] [address] [place], [place] [phone] Potassium [Moles/Vol] 4.1 mmol/L Normal 3.7-5.1 [facility] Comment on above: Performed By: #### C MP, CBC ####[place] [address] [place], [place] [phone] Protein [Mass/Vol] 5.5 g/dL Low 6.3-8.0 [facility] Comment on above: Performed By: #### C MP, CBC ####[address] [phone] Sodium [Moles/Vol] 138 mmol/L Normal 136-144 [facility] Comment on above: Performed By: #### C MP, CBC ####[address] [phone] Urea nitrogen [Mass/Vol] 20 mg/dL Normal 9-24 [facility] Comment on above: Performed By: #### C MP, CBC ####[address] [phone] PT EDon 10-11-2020 PT ED Normal [facility] THERAPY NTon 10-11-2020 THERAPY NT Normal [facility] XR CHEST 2V FRONTAL/LATon XR CHEST 2V FRONTAL/LAT Normal [facility] CBCon 10-10-2020 Absolute nRBC <0.01 Normal <0.01 [facility] Comment on above: Performed By: #### C BC, CMP ####[address] [phone] Erythrocyte distribution width (RBC) [Ratio] 15.4 % High 11.5-15.0 [facility] Comment on above: Performed By: #### C BC, CMP ####[address] [phone] Hematocrit (Bld) [Volume fraction] 31.2 % Low 39.0-51.0 [facility] Comment on above: Performed By: #### C BC, CMP ####[address] [phone] Hemoglobin (Bld) [Mass/Vol] 10.3 g/dL Low 13.0-17.0 [facility] Comment on above: Performed By: #### C BC, CMP ####[address] [phone] MCH 29.3 pG Normal 26.0-34.0 [facility] Comment on above: Performed By: #### C BC, CMP ####[place] [address], [place] [phone] MCHC (RBC) [Mass/Vol] 33.0 g/dL Normal 30.5-36.0 [facility] Comment on above: Performed By: #### C BC, CMP ####[facility], [place] [phone] MCV (RBC) [Entitic vol] 88.6 fL Normal 80.0-100.0 [facility] Comment on above: Performed By: #### C BC, CMP ####[facility], [place] [phone] Platelet mean volume (Bld) [Entitic vol] 10.4 fL Normal 9.0-12.7 [facility] Comment on above: Performed By: #### C BC, CMP ####[place] [address] [address], [place] [phone] Platelets (Bld) [#/Vol] 190 10*3/uL Normal 150-400 [facility] Comment on above: Performed By: #### C BC, CMP ####[facility], [place] [phone] RBC (Bld) [#/Vol] 3.52 10*6/uL Low 4.20-6.00 [facility] Comment on above: Performed By: #### C BC, CMP ####[facility], [place] [phone] WBC (Bld) [#/Vol] 7.03 10*3/uL Normal 3.70-11.00 [facility] Comment on above: Performed By: #### C BC, CMP ####[facility], [place] [phone] CONSULT PROGon 10-10-2020 CONSULT PROG Normal [facility] Comp Metabolic Panelon 10-10 Albumin [Mass/Vol] 3.3 g/dL Low 3.9-4.9 [facility] Comment on above: Performed By: #### C BC, CMP ####[place] [address] [address], [place] [phone] ALP [Catalytic activity/Vol] 132 U/L High 38-113 [facility] Comment on above: Performed By: #### C BC, CMP ####[place] [address] [address], [place] [phone] ALT [Catalytic activity/Vol] 18 U/L Normal 10-54 [facility] Comment on above: Performed By: #### C BC, CMP ####[place] [address] [address], [place] [phone] Anion gap [Moles/Vol] 10 mmol/L Normal 9-18 [facility] Comment on above: Performed By: #### C BC, CMP ####[address] [phone] AST [Catalytic activity/Vol] 23 U/L Normal 14-40 [facility] Comment on above: Performed By: #### C BC, CMP ####[address] [phone] Bilirubin [Mass/Vol] 0.5 mg/dL Normal 0.2-1.3 [facility] Comment on above: Performed By: #### C BC, CMP ####[place] [address] [address], [place] [phone] Calcium [Mass/Vol] 9.0 mg/dL Normal 8.5-10.2 [facility] Comment on above: Performed By: #### C BC, CMP ####[place] [address] [address], [place] [phone] Chloride [Moles/Vol] 102 mmol/L Normal 97-105 [facility] Comment on above: Performed By: #### C BC, CMP ####[place] [phone] CO2 [Moles/Vol] 27 mmol/L Normal 22-30 [facility] Comment on above: Performed By: #### C ALEX, CMP ####[address] [phone] Creatinine [Mass/Vol] 0.88 mg/dL Normal 0.73-1.22 [facility] Comment on above: Performed By: #### C ALEX, CMP ####[address] [phone] eGFR- Amer. >60 Normal [facility] Comment on above: Performed By: #### C ALEX, CMP ####[address] [phone] eGFR-All Other Races >60 Normal [facility] Comment on above: Result Comment: eGFR (Estimated GFR) Units of measure: mL/min/1.73 meters squaredeGFR is derived from the reexpressed MDRD Study equation using the following parameters: serum creatinine, age, gender and race. The creatinine assay has been calibrated to be traceable to IDMS.An eGFR <60 mL/min/1.73m2 for >3 months is consistent with chronic kidney disease. Refer to KDOQI guidelines for clinical interpretation.In patients with unstable renal function, e.g. those with acute kidney injury, the eGFR may not accurately reflect actual GFR. Performed By: #### C ALEX, CMP ####[address] [phone] Glucose [Mass/Vol] 167 mg/dL High 74-99 [facility] Comment on above: Result Comment: The [place] [employer] (ADA) provides guidance for cutoff values for fasting glucose and random glucose. The ADA defines fasting as no caloric intake for at least 8 hours. Fasting plasma glucose results between 100 to 125 mg/dL indicate increased risk for diabetes (prediabetes).Fasting plasma glucose results greater than or equal to 126 mg/dL meet the criteria for diagnosis of diabetes. In the absence of unequivocal hyperglycemia, results should be confirmed by repeat testing. In a patient with classic symptoms of hyperglycemia or hyperglycemic crisis, random plasma glucose results greater than or equal to 200 mg/dL meet the criteria for diagnosis of diabetes.Reference: Standards of Medical Care in Diabetes 2016, [place] [employer]. Diabetes Care. 2016.39(Suppl 1). Performed By: #### C BC, CMP ####[facility], [place] [phone] Potassium [Moles/Vol] 4.0 mmol/L Normal 3.7-5.1 [facility] Comment on above: Performed By: #### C BC, CMP ####[facility] [place], [place] [phone] Protein [Mass/Vol] 5.8 g/dL Low 6.3-8.0 [facility] Comment on above: Performed By: #### C BC, CMP ####[place] [address] [place], [place] [phone] Sodium [Moles/Vol] 139 mmol/L Normal 136-144 [facility] Comment on above: Performed By: #### C BC, CMP ####[place] [address] [place], [place] [phone] Urea nitrogen [Mass/Vol] 21 mg/dL Normal 9-24 [facility] Comment on above: Performed By: #### C BC, CMP ####[place] [address] [place], [place] [phone] NUTRITIONon 10-10-2020 NUTRITION Normal [facility] PT EDon 10-10-2020 PT ED Normal [facility] XR CHEST 2V FRONTAL/LATon XR CHEST 2V FRONTAL/LAT Normal [facility] CBCon 10-09-2020 Absolute nRBC <0.01 Normal <0.01 [facility] Comment on above: Performed By: #### C MP, CBC ####[facility] [place] [address] [phone] Erythrocyte distribution width (RBC) [Ratio] 15.9 % High 11.5-15.0 [facility] Comment on above: Performed By: #### C MP, CBC ####[place] [address], [place] [phone] Hematocrit (Bld) [Volume fraction] 33.7 % Low 39.0-51.0 [facility] Comment on above: Performed By: #### C MP, CBC ####[place] [address], [place] [phone] Hemoglobin (Bld) [Mass/Vol] 10.9 g/dL Low 13.0-17.0 [facility] Comment on above: Performed By: #### C MP, CBC ####[place] [address], [place] [phone] MCH 29.3 pG Normal 26.0-34.0 [facility] Comment on above: Performed By: #### C MP, CBC ####[place] [address], [place] [phone] MCHC (RBC) [Mass/Vol] 32.3 g/dL Normal 30.5-36.0 [facility] Comment on above: Performed By: #### C MP, CBC ####[place] [address], [place] [phone] MCV (RBC) [Entitic vol] 90.6 fL Normal 80.0-100.0 [facility] Comment on above: Performed By: #### C MP, CBC ####[place] [address], [place] [phone] Platelet mean volume (Bld) [Entitic vol] 11.1 fL Normal 9.0-12.7 [facility] Comment on above: Performed By: #### C MP, CBC ####[place] [address], [place] [phone] Platelets (Bld) [#/Vol] 160 10*3/uL Normal 150-400 [facility] Comment on above: Performed By: #### C MP, CBC ####[place] [address], [place] [phone] RBC (Bld) [#/Vol] 3.72 10*6/uL Low 4.20-6.00 [facility] Comment on above: Performed By: #### C MP, CBC ####[place] [address], [place] [phone] WBC (Bld) [#/Vol] 5.71 10*3/uL Normal 3.70-11.00 [facility] Comment on above: Performed By: #### C MP, CBC ####[place] [address], [place] [phone] CONSULT PROGon 10-09-2020 CONSULT PROG Normal [facility] Comp Metabolic Panelon 10-09 Albumin [Mass/Vol] 3.8 g/dL Low 3.9-4.9 [facility] Comment on above: Performed By: #### C MP, CBC ####[place] [address] [place], [place] [phone] ALP [Catalytic activity/Vol] 125 U/L High 38-113 [facility] Comment on above: Performed By: #### C MP, CBC ####[place] [address] [place], [place] [phone] ALT [Catalytic activity/Vol] 15 U/L Normal 10-54 [facility] Comment on above: Performed By: #### C MP, CBC ####[facility], [place] [phone] Anion gap [Moles/Vol] 13 mmol/L Normal 9-18 [facility] Comment on above: Performed By: #### C MP, CBC ####[place] [address], [place] [phone] AST [Catalytic activity/Vol] 17 U/L Normal 14-40 [facility] Comment on above: Performed By: #### C MP, CBC ####[place] [address], [place] [phone] Bilirubin [Mass/Vol] 0.6 mg/dL Normal 0.2-1.3 [facility] Comment on above: Performed By: #### C MP, CBC ####[place] [address] [place], [place] [phone] Calcium [Mass/Vol] 9.1 mg/dL Normal 8.5-10.2 [facility] Comment on above: Performed By: #### C MP, CBC ####[place] [address] [place], [place] [phone] Chloride [Moles/Vol] 105 mmol/L Normal 97-105 [facility] Comment on above: Performed By: #### C MP, CBC ####[place] [address], [place] [phone] CO2 [Moles/Vol] 25 mmol/L Normal 22-30 [facility] Comment on above: Performed By: #### C MP, CBC ####[place] [address], [place] [phone] Creatinine [Mass/Vol] 0.81 mg/dL Normal 0.73-1.22 [facility] Comment on above: Performed By: #### C MP, CBC ####[place] [address], [place] [phone] eGFR- Amer. >60 Normal [facility] Comment on above: Performed By: #### C MP, CBC ####[place] [address], [place] [phone] eGFR-All Other Races >60 Normal [facility] Comment on above: Result Comment: eGFR (Estimated GFR) Units of measure: mL/min/1.73 meters squaredeGFR is derived from the reexpressed MDRD Study equation using the following parameters: serum creatinine, age, gender and race. The creatinine assay has been calibrated to be traceable to IDMS.An eGFR <60 mL/min/1.73m2 for >3 months is consistent with chronic kidney disease. Refer to KDOQI guidelines for clinical interpretation.In patients with unstable renal function, e.g. those with acute kidney injury, the eGFR may not accurately reflect actual GFR. Performed By: #### C MP, CBC ####[facility] [place] [address] [phone] Glucose [Mass/Vol] 110 mg/dL High 74-99 [facility] Comment on above: Result Comment: The [place] [employer] (ADA) provides guidance for cutoff values for fasting glucose and random glucose. The ADA defines fasting as no caloric intake for at least 8 hours. Fasting plasma glucose results between 100 to 125 mg/dL indicate increased risk for diabetes (prediabetes).Fasting plasma glucose results greater than or equal to 126 mg/dL meet the criteria for diagnosis of diabetes. In the absence of unequivocal hyperglycemia, results should be confirmed by repeat testing. In a patient with classic symptoms of hyperglycemia or hyperglycemic crisis, random plasma glucose results greater than or equal to 200 mg/dL meet the criteria for diagnosis of diabetes.Reference: Standards of Medical Care in Diabetes 2016, [place] [employer]. Diabetes Care. 2016.39(Suppl 1). Performed By: #### C MP, CBC ####[facility] [place], [place] [phone] Potassium [Moles/Vol] 4.3 mmol/L Normal 3.7-5.1 [facility] Comment on above: Performed By: #### C MP, CBC ####[facility] [place], [place] [phone] Protein [Mass/Vol] 6.1 g/dL Low 6.3-8.0 [facility] Comment on above: Performed By: #### C MP, CBC ####[facility] [place], [place] [phone] Sodium [Moles/Vol] 143 mmol/L Normal 136-144 [facility] Comment on above: Performed By: #### C MP, CBC ####[place] [address] [place], [place] [phone] Urea nitrogen [Mass/Vol] 22 mg/dL Normal 9-24 [facility] Comment on above: Performed By: #### C MP, CBC ####[place] [address] [place], [place] [phone] XR CHEST 2V FRONTAL/LATon XR CHEST 2V FRONTAL/LAT Normal [facility] ALLIED HEALTHon 10-08-2020 ALLIED HEALTH Normal [facility] CASE MGT INIT ASSESon 2020 CASE MGT INIT ASSES Normal [facility] CBCon 10-08-2020 Absolute nRBC <0.01 Normal <0.01 [facility] Comment on above: Performed By: #### C BC, CMP ####[place] [address] [place] [phone] Erythrocyte distribution width (RBC) [Ratio] 16.1 % High 11.5-15.0 [facility] Comment on above: Performed By: #### C BC, CMP ####[place] [address] [place], [place] [phone] Hematocrit (Bld) [Volume fraction] 30.8 % Low 39.0-51.0 [facility] Comment on above: Performed By: #### C BC, CMP ####[place] [address] [place], [place] [phone] Hemoglobin (Bld) [Mass/Vol] 9.9 g/dL Low 13.0-17.0 [facility] Comment on above: Performed By: #### C BC, CMP ####[place] [address] [place], [place] [phone] MCH 28.7 pG Normal 26.0-34.0 [facility] Comment on above: Performed By: #### C BC, CMP ####[facility], [place] [phone] MCHC (RBC) [Mass/Vol] 32.1 g/dL Normal 30.5-36.0 [facility] Comment on above: Performed By: #### C BC, CMP ####[facility], [place] [phone] MCV (RBC) [Entitic vol] 89.3 fL Normal 80.0-100.0 [facility] Comment on above: Performed By: #### C BC, CMP ####[facility], [place] [phone] Platelet mean volume (Bld) [Entitic vol] 11.7 fL Normal 9.0-12.7 [facility] Comment on above: Performed By: #### C BC, CMP ####[place] [address] [place] [address], [place] [phone] Platelets (Bld) [#/Vol] 122 10*3/uL Low 150-400 [facility] Comment on above: Performed By: #### C BC, CMP ####[facility], [place] [phone] RBC (Bld) [#/Vol] 3.45 10*6/uL Low 4.20-6.00 [facility] Comment on above: Performed By: #### C BC, CMP ####[facility], [place] [phone] WBC (Bld) [#/Vol] 6.08 10*3/uL Normal 3.70-11.00 [facility] Comment on above: Performed By: #### C BC, CMP ####[facility], [place] [phone] CNDSon 10-08-2020 CNDS Normal [facility] CONSULT PROGon 10-08-2020 CONSULT PROG Normal [facility] Comp Metabolic Panelon 10-08 Albumin [Mass/Vol] 3.7 g/dL Low 3.9-4.9 [facility] Comment on above: Performed By: #### C BC, CMP ####[facility] [place], [place] [phone] ALP [Catalytic activity/Vol] 102 U/L Normal 38-113 [facility] Comment on above: Performed By: #### C BC, CMP ####[place] [address], [place] [phone] ALT [Catalytic activity/Vol] 13 U/L Normal 10-54 [facility] Comment on above: Performed By: #### C BC, CMP ####[place] [address], [place] [phone] Anion gap [Moles/Vol] 10 mmol/L Normal 9-18 [facility] Comment on above: Performed By: #### C BC, CMP ####[facility], [place] [phone] AST [Catalytic activity/Vol] 16 U/L Normal 14-40 [facility] Comment on above: Performed By: #### C BC, CMP ####[facility] [place] [address] [place], [place] [phone] Bilirubin [Mass/Vol] 0.6 mg/dL Normal 0.2-1.3 [facility] Comment on above: Performed By: #### C BC, CMP ####[facility] [address], [place] [phone] Calcium [Mass/Vol] 8.6 mg/dL Normal 8.5-10.2 [facility] Comment on above: Performed By: #### C BC, CMP ####[facility] [place] [address] [place], [place] [phone] Chloride [Moles/Vol] 106 mmol/L High 97-105 [facility] Comment on above: Performed By: #### C BC, CMP ####[facility] [address] [place] [address], [place] [phone] CO2 [Moles/Vol] 24 mmol/L Normal 22-30 [facility] Comment on above: Performed By: #### C BC, CMP ####[facility] [address] [place] [address] [place], [place] [phone] Creatinine [Mass/Vol] 0.80 mg/dL Normal 0.73-1.22 [facility] Comment on above: Performed By: #### C BC, CMP ####[facility] [place] [address] [phone] eGFR- Amer. >60 Normal [facility] Comment on above: Performed By: #### C BC, CMP ####[facility] [place] [address], [place] [phone] eGFR-All Other Races >60 Normal [facility] Comment on above: Result Comment: eGFR (Estimated GFR) Units of measure: mL/min/1.73 meters squaredeGFR is derived from the reexpressed MDRD Study equation using the following parameters: serum creatinine, age, gender and race. The creatinine assay has been calibrated to be traceable to IDMS.An eGFR <60 mL/min/1.73m2 for >3 months is consistent with chronic kidney disease. Refer to KDOQI guidelines for clinical interpretation.In patients with unstable renal function, e.g. those with acute kidney injury, the eGFR may not accurately reflect actual GFR. Performed By: #### C BC, CMP ####[facility] [address] [place] [address] [place] [address], [place] [phone] Glucose [Mass/Vol] 140 mg/dL High 74-99 [facility] Comment on above: Result Comment: The [place] [employer] (ADA) provides guidance for cutoff values for fasting glucose and random glucose. The ADA defines fasting as no caloric intake for at least 8 hours. Fasting plasma glucose results between 100 to 125 mg/dL indicate increased risk for diabetes (prediabetes).Fasting plasma glucose results greater than or equal to 126 mg/dL meet the criteria for diagnosis of diabetes. In the absence of unequivocal hyperglycemia, results should be confirmed by repeat testing. In a patient with classic symptoms of hyperglycemia or hyperglycemic crisis, random plasma glucose results greater than or equal to 200 mg/dL meet the criteria for diagnosis of diabetes.Reference: Standards of Medical Care in Diabetes 2016, [place] [employer]. Diabetes Care. 2016.39(Suppl 1). Performed By: #### C BC, CMP ####[address] [phone] Potassium [Moles/Vol] 3.9 mmol/L Normal 3.7-5.1 [facility] Comment on above: Performed By: #### C BC, CMP ####[place] [address] [place], [place] [phone] Protein [Mass/Vol] 5.7 g/dL Low 6.3-8.0 [facility] Comment on above: Performed By: #### C BC, CMP ####[address] [phone] Sodium [Moles/Vol] 140 mmol/L Normal 136-144 [facility] Comment on above: Performed By: #### C BC, CMP ####[address] [phone] Urea nitrogen [Mass/Vol] 20 mg/dL Normal 9-24 [facility] Comment on above: Performed By: #### C BC, CMP ####[address] [phone] THERAPY NTon 10-08-2020 THERAPY NT Normal [facility] XR ABDOMEN 1V SUPINEon 10-08 XR ABDOMEN 1V SUPINE Normal [facility] XR CHEST 2V FRONTAL/LATon XR CHEST 2V FRONTAL/LAT Normal [facility] CBCon 10-07-2020 Absolute nRBC <0.01 Normal <0.01 [facility] Comment on above: Performed By: #### C BC, CMP ####[place] [address] [place] [address], [place] [phone] Erythrocyte distribution width (RBC) [Ratio] 15.6 % High 11.5-15.0 [facility] Comment on above: Performed By: #### C BC, CMP ####[place] [address] [place] [address], [place] [phone] Hematocrit (Bld) [Volume fraction] 29.5 % Low 39.0-51.0 [facility] Comment on above: Performed By: #### C BC, CMP ####[place] [address] [place] [address], [place] [phone] Hemoglobin (Bld) [Mass/Vol] 9.8 g/dL Low 13.0-17.0 [facility] Comment on above: Performed By: #### C BC, CMP ####[place] [address] [place] [address] [phone] MCH 29.0 pG Normal 26.0-34.0 [facility] Comment on above: Performed By: #### C BC, CMP ####[place] [address] [place] [address] [phone] MCHC (RBC) [Mass/Vol] 33.2 g/dL Normal 30.5-36.0 [facility] Comment on above: Performed By: #### C BC, CMP ####[place] [address] [place] [address]Clevel[place] [phone] MCV (RBC) [Entitic vol] 87.3 fL Normal 80.0-100.0 [facility] Comment on above: Performed By: #### C BC, CMP ####[place] [address] [place] [address], [place] [phone] Platelet mean volume (Bld) [Entitic vol] 11.9 fL Normal 9.0-12.7 [facility] Comment on above: Performed By: #### C BC, CMP ####[place] [address] [place] [address], [place] [phone] Platelets (Bld) [#/Vol] 86 10*3/uL Low 150-400 [facility] Comment on above: Result Comment: Resu lt checked and verifiedNo clot detected. Performed By: #### C BC, CMP ####[place] [address] [place] [address], [place] [phone] RBC (Bld) [#/Vol] 3.38 10*6/uL Low 4.20-6.00 [facility] Comment on above: Performed By: #### C BC, CMP ####[place] [address] [place] [address], [place] [phone] WBC (Bld) [#/Vol] 7.40 10*3/uL Normal 3.70-11.00 [facility] Comment on above: Performed By: #### C BC, CMP ####[place] [address] [place], [place] [phone] CONSULT PROGon 10-07-2020 CONSULT PROG Normal [facility] Comp Metabolic Panelon 10-07 Albumin [Mass/Vol] 3.6 g/dL Low 3.9-4.9 [facility] Comment on above: Performed By: #### C BC, CMP ####[place] [address] [place] [address], [place] [phone] ALP [Catalytic activity/Vol] 67 U/L Normal 38-113 [facility] Comment on above: Performed By: #### C BC, CMP ####[facility] [place] [address], [place] [phone] ALT [Catalytic activity/Vol] 12 U/L Normal 10-54 [facility] Comment on above: Performed By: #### C BC, CMP ####[facility] [place] [address], [place] [phone] Anion gap [Moles/Vol] 6 mmol/L Low 9-18 [facility] Comment on above: Performed By: #### C BC, CMP ####[place] [address] [place] [address] [phone] AST [Catalytic activity/Vol] 20 U/L Normal 14-40 [facility] Comment on above: Performed By: #### C BC, CMP ####[place] [address] [place] [address] [phone] Bilirubin [Mass/Vol] 0.6 mg/dL Normal 0.2-1.3 [facility] Comment on above: Performed By: #### C BC, CMP ####[place] [address] [place] [address] [phone] Calcium [Mass/Vol] 9.0 mg/dL Normal 8.5-10.2 [facility] Comment on above: Performed By: #### C BC, CMP ####[place] [address] [place] [address] [phone] Chloride [Moles/Vol] 107 mmol/L High 97-105 [facility] Comment on above: Performed By: #### C BC, CMP ####[place] [address] [place] [address] [phone] CO2 [Moles/Vol] 25 mmol/L Normal 22-30 [facility] Comment on above: Performed By: #### C BC, CMP ####[place] [address] [place] [address] [phone] Creatinine [Mass/Vol] 0.88 mg/dL Normal 0.73-1.22 [facility] Comment on above: Performed By: #### C BC, CMP ####[place] [address] [place] [address] [phone] eGFR- Amer. >60 Normal [facility] Comment on above: Performed By: #### C BC, CMP ####[place] [address] [place] [address] [place] [phone] eGFR-All Other Races >60 Normal [facility] Comment on above: Result Comment: eGFR (Estimated GFR) Units of measure: mL/min/1.73 meters squaredeGFR is derived from the reexpressed MDRD Study equation using the following parameters: serum creatinine, age, gender and race. The creatinine assay has been calibrated to be traceable to IDMS.An eGFR <60 mL/min/1.73m2 for >3 months is consistent with chronic kidney disease. Refer to KDOQI guidelines for clinical interpretation.In patients with unstable renal function, e.g. those with acute kidney injury, the eGFR may not accurately reflect actual GFR. Performed By: #### C BC, CMP ####[facility], [place] [phone] Glucose [Mass/Vol] 122 mg/dL High 74-99 [facility] Comment on above: Result Comment: The [place] [employer] (ADA) provides guidance for cutoff values for fasting glucose and random glucose. The ADA defines fasting as no caloric intake for at least 8 hours. Fasting plasma glucose results between 100 to 125 mg/dL indicate increased risk for diabetes (prediabetes).Fasting plasma glucose results greater than or equal to 126 mg/dL meet the criteria for diagnosis of diabetes. In the absence of unequivocal hyperglycemia, results should be confirmed by repeat testing. In a patient with classic symptoms of hyperglycemia or hyperglycemic crisis, random plasma glucose results greater than or equal to 200 mg/dL meet the criteria for diagnosis of diabetes.Reference: Standards of Medical Care in Diabetes 2016, [place] [employer]. Diabetes Care. 2016.39(Suppl 1). Performed By: #### C BC, CMP ####[facility], [place] [phone] Potassium [Moles/Vol] 4.3 mmol/L Normal 3.7-5.1 [facility] Comment on above: Performed By: #### C BC, CMP ####[facility] [place], [place] [phone] Protein [Mass/Vol] 5.7 g/dL Low 6.3-8.0 [facility] Comment on above: Performed By: #### C BC, CMP ####[place] [address] [place] [address] [phone] Sodium [Moles/Vol] 138 mmol/L Normal 136-144 [facility] Comment on above: Performed By: #### C BC, CMP ####[place] [address] [place] [address] [phone] Urea nitrogen [Mass/Vol] 19 mg/dL Normal 9-24 [facility] Comment on above: Performed By: #### C BC, CMP ####[place] [address] [place] [address] [place] [phone] GASV + ALLon 10-07-2020 Base Excess 1 mmol/L Normal [facility] Comment on above: Performed By: #### V ALLBG ####[place] [address] [place] [address], [place] [phone] Blood Gas Comm, Curtis . Normal [facility] Comment on above: Performed By: #### V ALLBG ####[place] [address] [address] [place] [phone] Body temperature 98.6 [degF] Normal [facility] Comment on above: Performed By: #### V ALLBG ####[place] [address] [address] [phone] Calcium [Moles/Vol] 1.24 mmol/L Normal 1.08-1.30 [facility] Comment on above: Performed By: #### V ALLBG ####[place] [address] [place] [address] [place] [phone] Carboxyhemoglobin ,Curtis 1.4 % Normal <2.1 [facility] Comment on above: Performed By: #### V ALLBG ####[address] [phone] CO2 [Moles/Vol] 26 mmol/L Normal 25-29 [facility] Comment on above: Performed By: #### V ALLBG ####[place] [address] [place] [address], [place] [phone] Glucose [Mass/Vol] 155 mg/dL High 60-105 [facility] Comment on above: Performed By: #### V ALLBG ####[place] [address] [address], [place] [phone] HCO3 (Bld) [Moles/Vol] 25 mmol/L Normal 24-28 [facility] Comment on above: Performed By: #### V ALLBG ####[place] [address] [address], [place] [phone] Hematocrit (Bld) [Volume fraction] 29.8 % Low 39.0-51.0 [facility] Comment on above: Performed By: #### V ALLBG ####[place] [address] [place] [address] [place] [phone] Hemoglobin (Bld) [Mass/Vol] 9.6 g/dL Low 13.0-17.0 [facility] Comment on above: Performed By: #### V ALLBG ####[place] [address] [address], [place] [phone] Lactate [Moles/Vol] 0.8 mmol/L Normal 0.5-2.2 [facility] Comment on above: Performed By: #### V ALLBG ####[place] [address] [address], [place] [phone] Methemoglobin 1.2 % Normal <1.6 [facility] Comment on above: Performed By: #### V ALLBG ####[place] [address] [address], [place] [phone] Oxyhemoglobin, Curtis. 92 % High 60-85 [facility] Comment on above: Performed By: #### V ALLBG ####[place] [address] [address], [place] [phone] pCO2 42 mm Hg Normal 42-55 [facility] Comment on above: Performed By: #### V ALLBG ####[place] [address] [place] [address], [place] [phone] pCO2, Temp Correct 42 mm Hg Normal 42-55 [facility] Comment on above: Performed By: #### V ALLBG ####[place] [address] [address] [place], [place] [phone] pH (Bld) 7.39 [pH] Normal 7.32-7.42 [facility] Comment on above: Performed By: #### V ALLBG ####[address] [place], [place] [phone] pH, Temp Corrected 7.39 Normal 7.32-7.42 [facility] Comment on above: Performed By: #### V ALLBG ####[place] [address] [place], [place] [phone] pO2 63 mm Hg High 35-45 [facility] Comment on above: Performed By: #### V ALLBG ####[address] [phone] pO2, Temp Corrected 63 mm Hg High 35-45 [facility] Comment on above: Performed By: #### V ALLBG ####[address] [phone] Potassium [Moles/Vol] 4.0 mmol/L Normal 3.5-5.0 [facility] Comment on above: Performed By: #### V ALLBG ####[place] [address] [place], [place] [phone] Sodium [Moles/Vol] 141 mmol/L Normal 136-144 [facility] Comment on above: Performed By: #### V ALLBG ####[address] [phone] THERAPY NTon 10-07-2020 THERAPY NT Normal [facility] THERAPY NT Normal [facility] XR CHEST 1V FRONTAL PORTon 0 10-07-2020 XR CHEST 1V FRONTAL PORT Normal [facility] CBCon 10-06-2020 Absolute nRBC <0.01 Normal <0.01 [facility] Comment on above: Performed By: #### C RACHANA MG1, CBC ####[place] [address] [address], [place] [phone] Erythrocyte distribution width (RBC) [Ratio] 15.5 % High 11.5-15.0 [facility] Comment on above: Performed By: #### C RACHANA MG1, CBC ####[place] [address] [address], [place] [phone] Hematocrit (Bld) [Volume fraction] 22.2 % Low 39.0-51.0 [facility] Comment on above: Performed By: #### C RACHANA MG1, CBC ####[place] [address] [place] [address], [place] [phone] Hemoglobin (Bld) [Mass/Vol] 7.4 g/dL Low 13.0-17.0 [facility] Comment on above: Performed By: #### C RACHANA MG1, CBC ####[place] [address] [address], [place] [phone] MCH 29.4 pG Normal 26.0-34.0 [facility] Comment on above: Performed By: #### C RACHANA MG1, CBC ####[place] [address] [place] [address], [place] [phone] MCHC (RBC) [Mass/Vol] 33.3 g/dL Normal 30.5-36.0 [facility] Comment on above: Performed By: #### C RACHANA MG1, CBC ####[facility], [place] [phone] MCV (RBC) [Entitic vol] 88.1 fL Normal 80.0-100.0 [facility] Comment on above: Performed By: #### C MP, MG1, CBC ####[place] [address] [place] [address], [place] [phone] Platelet mean volume (Bld) [Entitic vol] 11.8 fL Normal 9.0-12.7 [facility] Comment on above: Performed By: #### C MP, MG1, CBC ####[place] [address] [place] [address], [place] [phone] Platelets (Bld) [#/Vol] 70 10*3/uL Low 150-400 [facility] Comment on above: Result Comment: No c lot detected. Performed By: #### C MP, MG1, CBC ####[place] [address] [address], [place] [phone] RBC (Bld) [#/Vol] 2.52 10*6/uL Low 4.20-6.00 [facility] Comment on above: Performed By: #### C MP, MG1, CBC ####[place] [address] [address], [place] [phone] WBC (Bld) [#/Vol] 8.67 10*3/uL Normal 3.70-11.00 [facility] Comment on above: Performed By: #### C MP, MG1, CBC ####[place] [address] [address], [place] [phone] CONSULT PROGon 10-06-2020 CONSULT PROG Normal [facility] Comp Metabolic Panelon 10-06 Albumin [Mass/Vol] 4.0 g/dL Normal 3.9-4.9 [facility] Comment on above: Performed By: #### C MP, MG1, CBC ####[facility], [place] [phone] ALP [Catalytic activity/Vol] 36 U/L Low 38-113 [facility] Comment on above: Performed By: #### C MP, MG1, CBC ####[facility] [address] [place] [address], [place] [phone] ALT [Catalytic activity/Vol] 11 U/L Normal 10-54 [facility] Comment on above: Performed By: #### C MP, MG1, CBC ####[facility], [place] [phone] Anion gap [Moles/Vol] 8 mmol/L Low 9-18 [facility] Comment on above: Performed By: #### C MP, MG1, CBC ####[place] [address] [place] [address], [place] [phone] AST [Catalytic activity/Vol] 34 U/L Normal 14-40 [facility] Comment on above: Performed By: #### C MP, MG1, CBC ####[place] [address] [place] [address] [phone] Bilirubin [Mass/Vol] 0.5 mg/dL Normal 0.2-1.3 [facility] Comment on above: Performed By: #### C MP, MG1, CBC ####[place] [address] [place], [place] [phone] Calcium [Mass/Vol] 8.9 mg/dL Normal 8.5-10.2 [facility] Comment on above: Performed By: #### C MP, MG1, CBC ####[place] [address] [place] [address], [place] [phone] Chloride [Moles/Vol] 106 mmol/L High 97-105 [facility] Comment on above: Performed By: #### C MP, MG1, CBC ####[facility], [place] [phone] CO2 [Moles/Vol] 23 mmol/L Normal 22-30 [facility] Comment on above: Performed By: #### C MP, MG1, CBC ####[place] [address] [place], [place] [phone] Creatinine [Mass/Vol] 0.88 mg/dL Normal 0.73-1.22 [facility] Comment on above: Performed By: #### C RACHANA, MG1, CBC ####[facility] [address] [place], [place] [phone] eGFR- Amer. >60 Normal [facility] Comment on above: Performed By: #### C RACHANA, MG1, CBC ####[facility] [address] [place], [place] [phone] eGFR-All Other Races >60 Normal [facility] Comment on above: Result Comment: eGFR (Estimated GFR) Units of measure: mL/min/1.73 meters squaredeGFR is derived from the reexpressed MDRD Study equation using the following parameters: serum creatinine, age, gender and race. The creatinine assay has been calibrated to be traceable to IDMS.An eGFR <60 mL/min/1.73m2 for >3 months is consistent with chronic kidney disease. Refer to KDOQI guidelines for clinical interpretation.In patients with unstable renal function, e.g. those with acute kidney injury, the eGFR may not accurately reflect actual GFR. Performed By: #### C RACHANA MG1, CBC ####[facility] [address] [place], [place] [phone] Glucose [Mass/Vol] 137 mg/dL High 74-99 [facility] Comment on above: Result Comment: The [place] [employer] (ADA) provides guidance for cutoff values for fasting glucose and random glucose. The ADA defines fasting as no caloric intake for at least 8 hours. Fasting plasma glucose results between 100 to 125 mg/dL indicate increased risk for diabetes (prediabetes).Fasting plasma glucose results greater than or equal to 126 mg/dL meet the criteria for diagnosis of diabetes. In the absence of unequivocal hyperglycemia, results should be confirmed by repeat testing. In a patient with classic symptoms of hyperglycemia or hyperglycemic crisis, random plasma glucose results greater than or equal to 200 mg/dL meet the criteria for diagnosis of diabetes.Reference: Standards of Medical Care in Diabetes 2016, [place] [employer]. Diabetes Care. 2016.39(Suppl 1). Performed By: #### C MP, MG1, CBC ####[place] [address] [place] [address], [place] [phone] Potassium [Moles/Vol] 4.3 mmol/L Normal 3.7-5.1 [facility] Comment on above: Performed By: #### C MP, MG1, CBC ####[place] [address] [place] [address] [phone] Protein [Mass/Vol] 5.6 g/dL Low 6.3-8.0 [facility] Comment on above: Performed By: #### C RACHANA, MG1, CBC ####[place] [address] [place] [address], [place] [phone] Sodium [Moles/Vol] 137 mmol/L Normal 136-144 [facility] Comment on above: Performed By: #### C RACHANA MG1, CBC ####[place] [address] [place] [address] [place] [phone] Urea nitrogen [Mass/Vol] 19 mg/dL Normal 9-24 [facility] Comment on above: Performed By: #### C RACHANA MG1, CBC ####[address] [phone] GASA + All FOR RADIANCE USE ONLYon 10-06-2020 Base Excess Negative Normal [facility] Comment on above: Performed By: #### A LLBG ####[place] [address] [place] [address], [place] [phone] Blood Gas Comm, Art . Normal [facility] Comment on above: Performed By: #### A LLBG ####[place] [address] [address], [place] [phone] Body temperature 98.6 [degF] Normal [facility] Comment on above: Performed By: #### A LLBG ####[place] [address] [address] [place], [place] [phone] Calcium [Moles/Vol] 1.22 mmol/L Normal 1.08-1.30 [facility] Comment on above: Performed By: #### A LLBG ####[address] [phone] Carboxyhemoglobin ,Art 1.2 % Normal <2.1 [facility] Comment on above: Performed By: #### A LLBG ####[address] [phone] CO2 [Moles/Vol] 25 mmol/L Normal 22.0-28.0 [facility] Comment on above: Performed By: #### A LLBG ####[address] [phone] Glucose [Mass/Vol] 270 mg/dL High 60-105 [facility] Comment on above: Performed By: #### A LLBG ####[address] [phone] HCO3 (Bld) [Moles/Vol] 24 mmol/L Normal 22-26 [facility] Comment on above: Performed By: #### A LLBG ####[address] [phone] Hematocrit (Bld) [Volume fraction] 28.5 % Low 39.0-51.0 [facility] Comment on above: Performed By: #### A LLBG ####[place] [address] [place], [place] [phone] Hemoglobin (Bld) [Mass/Vol] 9.2 g/dL Low 13.0-17.0 [facility] Comment on above: Performed By: #### A LLBG ####[address] [phone] Lactate [Moles/Vol] 1.2 mmol/L Normal 0.5-2.2 [facility] Comment on above: Performed By: #### A LLBG ####[facility], [place] [phone] Methemoglobin 1.3 % Normal <1.6 [facility] Comment on above: Performed By: #### A LLBG ####[facility]Cleveland[address] [place] [phone] Oxyhemoglobin, Art. 95 % Normal 95-98 [facility] Comment on above: Performed By: #### A LLBG ####[facility] [place] [address], [place] [phone] pCO2 42 mm Hg Normal 34-46 [facility] Comment on above: Performed By: #### A LLBG ####[facility]ClevelThomas [place] [phone] pCO2, Temp Correct 42 mm Hg Normal 34-46 [facility] Comment on above: Performed By: #### A LLBG ####[facility]ClevelThomas [place] [phone] pH (Bld) 7.36 [pH] Normal 7.35-7.45 [facility] Comment on above: Performed By: #### A LLBG ####[facility], [place] [phone] pH, Temp Corrected 7.36 Normal 7.35-7.45 [facility] Comment on above: Performed By: #### A LLBG ####[facility] [address] [place] [address] [place] [address]leveland[place] [phone] pO2 95 mm Hg Normal 85-95 [facility] Comment on above: Performed By: #### A LLBG ####[facility] [address] [place] [address] [place] [address], [place] [phone] pO2, Temp Corrected 95 mm Hg Normal 85-95 [facility] Comment on above: Performed By: #### A LLBG ####[place] [address] [place] [address], [place] [phone] Potassium [Moles/Vol] 4.4 mmol/L Normal 3.5-5.0 [facility] Comment on above: Performed By: #### A LLBG ####[place] [address] [place] [address], [place] [phone] Sodium [Moles/Vol] 133 mmol/L Low 136-144 [facility] Comment on above: Performed By: #### A LLBG ####[place] [address] [place] [address], [place] [phone] Base Excess Negative Normal [facility] Comment on above: Performed By: #### A LLBG ####[address] [phone] Blood Gas Comm, Art . Normal [facility] Comment on above: Performed By: #### A LLBG ####[address] [phone] Body temperature 98.6 [degF] Normal [facility] Comment on above: Performed By: #### A LLBG ####[address] [phone] Calcium [Moles/Vol] 1.28 mmol/L Normal 1.08-1.30 [facility] Comment on above: Performed By: #### A LLBG ####[address] [phone] Carboxyhemoglobin ,Art 1.7 % Normal <2.1 [facility] Comment on above: Performed By: #### A LLBG ####[address] [phone] CO2 [Moles/Vol] 24 mmol/L Normal 22.0-28.0 [facility] Comment on above: Performed By: #### A LLBG ####[place] [address] [place] [address], [place] [phone] Glucose [Mass/Vol] 155 mg/dL High 60-105 [facility] Comment on above: Performed By: #### A LLBG ####[place] [address] [place] [address], [place] [phone] HCO3 (Bld) [Moles/Vol] 23 mmol/L Normal 22-26 [facility] Comment on above: Performed By: #### A LLBG ####[place] [address] [place] [address], [place] [phone] Hematocrit (Bld) [Volume fraction] 27.5 % Low 39.0-51.0 [facility] Comment on above: Performed By: #### A LLBG ####[place] [address] [place] [address], [place] [phone] Hemoglobin (Bld) [Mass/Vol] 8.9 g/dL Low 13.0-17.0 [facility] Comment on above: Performed By: #### A LLBG ####[place] [address] [place] [address], [place] [phone] Lactate [Moles/Vol] 1.1 mmol/L Normal 0.5-2.2 [facility] Comment on above: Performed By: #### A LLBG ####[place] [address] [place] [address], [place] [phone] Methemoglobin 0.7 % Normal <1.6 [facility] Comment on above: Performed By: #### A LLBG ####[place] [address] [place] [address], [place] [phone] Oxyhemoglobin, Art. 95 % Normal 95-98 [facility] Comment on above: Performed By: #### A LLBG ####[place] [address] [place] [address], [place] [phone] pCO2 42 mm Hg Normal 34-46 [facility] Comment on above: Performed By: #### A LLBG ####[facility] [place] [address], [place] [phone] pCO2, Temp Correct 42 mm Hg Normal 34-46 [facility] Comment on above: Performed By: #### A LLBG ####[place] [address] [place] [address], [place] [phone] pH (Bld) 7.36 [pH] Normal 7.35-7.45 [facility] Comment on above: Performed By: #### A LLBG ####[place] [address] [place] [address], [place] [phone] pH, Temp Corrected 7.36 Normal 7.35-7.45 [facility] Comment on above: Performed By: #### A LLBG ####[place] [address] [place] [address] [place] [phone] pO2 88 mm Hg Normal 85-95 [facility] Comment on above: Performed By: #### A LLBG ####[place] [address] [place] [address] [place] [phone] pO2, Temp Corrected 88 mm Hg Normal 85-95 [facility] Comment on above: Performed By: #### A LLBG ####[place] [address] [place] [address] [place] [phone] Potassium [Moles/Vol] 4.5 mmol/L Normal 3.5-5.0 [facility] Comment on above: Performed By: #### A LLBG ####[place] [address] [place] [address], [place] [phone] Sodium [Moles/Vol] 137 mmol/L Normal 136-144 [facility] Comment on above: Performed By: #### A LLBG ####[place] [address] [place] [address], [place] [phone] Base Excess 0 mmol/L Normal [facility] Comment on above: Performed By: #### A LLBG ####[place] [address] [place] [address], [place] [phone] Blood Gas Comm, Art . Normal [facility] Comment on above: Performed By: #### A LLBG ####[place] [address] [place] [address], [place] [phone] Body temperature 98.6 [degF] Normal [facility] Comment on above: Performed By: #### A LLBG ####[place] [address] [place] [address], [place] [phone] Calcium [Moles/Vol] 1.31 mmol/L High 1.08-1.30 [facility] Comment on above: Performed By: #### A LLBG ####[place] [address] [place] [address] [phone] Carboxyhemoglobin ,Art 1.1 % Normal <2.1 [facility] Comment on above: Performed By: #### A LLBG ####[place] [address] [place] [address] [place] [phone] CO2 [Moles/Vol] 26 mmol/L Normal 22.0-28.0 [facility] Comment on above: Performed By: #### A LLBG ####[place] [address] [place] [address], [place] [phone] Glucose [Mass/Vol] 144 mg/dL High 60-105 [facility] Comment on above: Performed By: #### A LLBG ####[place] [address] [place] [address], [place] [phone] HCO3 (Bld) [Moles/Vol] 25 mmol/L Normal 22-26 [facility] Comment on above: Performed By: #### A LLBG ####[place] [address] [place] [address], [place] [phone] Hematocrit (Bld) [Volume fraction] 24.5 % Low 39.0-51.0 [facility] Comment on above: Performed By: #### A LLBG ####[place] [address] [place] [address]ClevelThomas [place] [phone] Hemoglobin (Bld) [Mass/Vol] 7.9 g/dL Low 13.0-17.0 [facility] Comment on above: Performed By: #### A LLBG ####[place] [address] [place] [address] [place] [phone] Lactate [Moles/Vol] 0.8 mmol/L Normal 0.5-2.2 [facility] Comment on above: Performed By: #### A LLBG ####[place] [address] [place] [address] [place] [phone] Methemoglobin 1.5 % Normal <1.6 [facility] Comment on above: Performed By: #### A LLBG ####[place] [address] [place] [address] [place] [phone] Oxyhemoglobin, Art. 96 % Normal 95-98 [facility] Comment on above: Performed By: #### A LLBG ####[place] [address] [place] [address] [place] [phone] pCO2 44 mm Hg Normal 34-46 [facility] Comment on above: Performed By: #### A LLBG ####[place] [address] [place] [address] [place] [phone] pCO2, Temp Correct 44 mm Hg Normal 34-46 [facility] Comment on above: Performed By: #### A LLBG ####[place] [address] [place] [address]ClevelThomas [place] [phone] pH (Bld) 7.36 [pH] Normal 7.35-7.45 [facility] Comment on above: Performed By: #### A LLBG ####[place] [address] [place] [address] [phone] pH, Temp Corrected 7.36 Normal 7.35-7.45 [facility] Comment on above: Performed By: #### A LLBG ####[facility] [place] [address], [place] [phone] pO2 118 mm Hg High 85-95 [facility] Comment on above: Performed By: #### A LLBG ####[facility] [place] [address], [place] [phone] pO2, Temp Corrected 118 mm Hg High 85-95 [facility] Comment on above: Performed By: #### A LLBG ####[place] [address] [place] [address], [place] [phone] Potassium [Moles/Vol] 4.3 mmol/L Normal 3.5-5.0 [facility] Comment on above: Performed By: #### A LLBG ####[place] [address] [place] [address] [place] [phone] Sodium [Moles/Vol] 135 mmol/L Low 136-144 [facility] Comment on above: Performed By: #### A LLBG ####[place] [address] [place] [address] [phone] Base Excess Negative Normal [facility] Comment on above: Performed By: #### A LLBG ####[facility] [place] [address], [place] [phone] Blood Gas Comm, Art . Normal [facility] Comment on above: Performed By: #### A LLBG ####[facility] [place] [address], [place] [phone] Body temperature 98.6 [degF] Normal [facility] Comment on above: Performed By: #### A LLBG ####[place] [address] [place] [address] [address], [place] [phone] Calcium [Moles/Vol] 1.25 mmol/L Normal 1.08-1.30 [facility] Comment on above: Performed By: #### A LLBG ####[place] [address] [address], [place] [phone] Carboxyhemoglobin ,Art 1.2 % Normal <2.1 [facility] Comment on above: Performed By: #### A LLBG ####[place] [address] [place] [address] [place] [phone] CO2 [Moles/Vol] 25 mmol/L Normal 22.0-28.0 [facility] Comment on above: Performed By: #### A LLBG ####[place] [address] [place] [address] [place] [phone] Glucose [Mass/Vol] 142 mg/dL High 60-105 [facility] Comment on above: Performed By: #### A LLBG ####[place] [address] [place] [address] [place] [phone] HCO3 (Bld) [Moles/Vol] 23 mmol/L Normal 22-26 [facility] Comment on above: Performed By: #### A LLBG ####[place] [address] [place] [address] [phone] Hematocrit (Bld) [Volume fraction] 23.8 % Low 39.0-51.0 [facility] Comment on above: Performed By: #### A LLBG ####[place] [address] [place] [address] [place] [phone] Hemoglobin (Bld) [Mass/Vol] 7.6 g/dL Low 13.0-17.0 [facility] Comment on above: Performed By: #### A LLBG ####[place] [address] [place] [address] [place] [phone] Lactate [Moles/Vol] 0.8 mmol/L Normal 0.5-2.2 [facility] Comment on above: Performed By: #### A LLBG ####[place] [address] [place] [address] [place] [phone] Methemoglobin 1.3 % Normal <1.6 [facility] Comment on above: Performed By: #### A LLBG ####[place] [id number] [place] [address], [place] [phone] Oxyhemoglobin, Art. 95 % Normal 95-98 [facility] Comment on above: Performed By: #### A LLBG ####[place] [address] [address], [place] [phone] pCO2 41 mm Hg Normal 34-46 [facility] Comment on above: Performed By: #### A LLBG ####[place] [address] [place] [address], [place] [phone] pCO2, Temp Correct 41 mm Hg Normal 34-46 [facility] Comment on above: Performed By: #### A LLBG ####[place] [address] [address], [place] [phone] pH (Bld) 7.38 [pH] Normal 7.35-7.45 [facility] Comment on above: Performed By: #### A LLBG ####[place] [address] [address], [place] [phone] pH, Temp Corrected 7.38 Normal 7.35-7.45 [facility] Comment on above: Performed By: #### A LLBG ####[place] [address] [address], [place] [phone] pO2 101 mm Hg High 85-95 [facility] Comment on above: Performed By: #### A LLBG ####[place] [address] [place] [address], [place] [phone] pO2, Temp Corrected 101 mm Hg High 85-95 [facility] Comment on above: Performed By: #### A LLBG ####[place] [address] [address], [place] [phone] Potassium [Moles/Vol] 4.1 mmol/L Normal 3.5-5.0 [facility] Comment on above: Performed By: #### A LLBG ####[address] [phone] Sodium [Moles/Vol] 136 mmol/L Normal 136-144 [facility] Comment on above: Performed By: #### A LLBG ####[address] [phone] Magnesiumon 10-06-2020 Magnesium [Mass/Vol] 2.5 mg/dL High 1.7-2.3 [facility] Comment on above: Performed By: #### C MP, MG1, CBC ####[address] [phone] XR CHEST 1V FRONTAL PORTon 0 10-06-2020 XR CHEST 1V FRONTAL PORT Normal [facility] CASE MANAGEMon 10-05-2020 CASE MANAGEM Normal [facility] CBCon 10-05-2020 Absolute nRBC <0.01 Normal <0.01 [facility] Comment on above: Performed By: #### T NT, CBC, CMP ####[address] [phone] Erythrocyte distribution width (RBC) [Ratio] 15.2 % High 11.5-15.0 [facility] Comment on above: Performed By: #### T NT, CBC, CMP ####[address] [phone] Hematocrit (Bld) [Volume fraction] 29.6 % Low 39.0-51.0 [facility] Comment on above: Performed By: #### T NT, CBC, CMP ####[address] [phone] Hemoglobin (Bld) [Mass/Vol] 9.8 g/dL Low 13.0-17.0 [facility] Comment on above: Performed By: #### T NT, CBC, CMP ####[facility], [place] [phone] MCH 28.9 pG Normal 26.0-34.0 [facility] Comment on above: Performed By: #### T NT, CBC, CMP ####[place] [address] [address], [place] [phone] MCHC (RBC) [Mass/Vol] 33.1 g/dL Normal 30.5-36.0 [facility] Comment on above: Performed By: #### T NT, CBC, CMP ####[place] [address] [address], [place] [phone] MCV (RBC) [Entitic vol] 87.3 fL Normal 80.0-100.0 [facility] Comment on above: Performed By: #### T NT, CBC, CMP ####[place] [address] [address], [place] [phone] Platelet mean volume (Bld) [Entitic vol] 11.3 fL Normal 9.0-12.7 [facility] Comment on above: Performed By: #### T NT, CBC, CMP ####[place] [address] [address], [place] [phone] Platelets (Bld) [#/Vol] 122 10*3/uL Low 150-400 [facility] Comment on above: Result Comment: Resu lt checked and verifiedNo clot detected. Performed By: #### T NT, CBC, CMP ####[place] [address] [address], [place] [phone] RBC (Bld) [#/Vol] 3.39 10*6/uL Low 4.20-6.00 [facility] Comment on above: Performed By: #### T NT, CBC, CMP ####[place] [address] [address], [place] [phone] WBC (Bld) [#/Vol] 10.62 10*3/uL Normal 3.70-11.00 [facility] Comment on above: Performed By: #### T NT, CBC, CMP ####[place] [address] [address], [place] [phone] Comp Metabolic Panelon 10-05 Albumin [Mass/Vol] 3.2 g/dL Low 3.9-4.9 [facility] Comment on above: Performed By: #### T NT, CBC, CMP ####[place] [address] [address], [place] [phone] ALP [Catalytic activity/Vol] 47 U/L Normal 38-113 [facility] Comment on above: Performed By: #### T NT, CBC, CMP ####[place] [address] [address], [place] [phone] ALT [Catalytic activity/Vol] 14 U/L Normal 10-54 [facility] Comment on above: Performed By: #### T NT, CBC, CMP ####[place] [address] [address], [place] [phone] Anion gap [Moles/Vol] 10 mmol/L Normal 9-18 [facility] Comment on above: Performed By: #### T NT, CBC, CMP ####[place] [address] [address] [place], [place] [phone] AST [Catalytic activity/Vol] 53 U/L High 14-40 [facility] Comment on above: Performed By: #### T NT, CBC, CMP ####[place] [address] [address], [place] [phone] Bilirubin [Mass/Vol] 0.6 mg/dL Normal 0.2-1.3 [facility] Comment on above: Performed By: #### T NT, CBC, CMP ####[place] [address] [address], [place] [phone] Calcium [Mass/Vol] 8.0 mg/dL Low 8.5-10.2 [facility] Comment on above: Performed By: #### T NT, CBC, CMP ####[facility] [address], [place] [phone] Chloride [Moles/Vol] 107 mmol/L High 97-105 [facility] Comment on above: Performed By: #### T NT, CBC, CMP ####[place] [address] [address], [place] [phone] CO2 [Moles/Vol] 19 mmol/L Low 22-30 [facility] Comment on above: Performed By: #### T NT, CBC, CMP ####[place] [address] [address]Sus[place] [phone] Creatinine [Mass/Vol] 0.98 mg/dL Normal 0.73-1.22 [facility] Comment on above: Performed By: #### T NT, CBC, CMP ####[place] [address] [address] AvRadioShackChad [place]ille [phone] eGFR- Amer. >60 Normal [facility] Comment on above: Performed By: #### T NT, CBC, CMP ####[place] [address] [address] [place], [place] [phone] eGFR-All Other Races >60 Normal [facility] Comment on above: Result Comment: eGFR (Estimated GFR) Units of measure: mL/min/1.73 meters squaredeGFR is derived from the reexpressed MDRD Study equation using the following parameters: serum creatinine, age, gender and race. The creatinine assay has been calibrated to be traceable to IDMS.An eGFR <60 mL/min/1.73m2 for >3 months is consistent with chronic kidney disease. Refer to KDOQI guidelines for clinical interpretation.In patients with unstable renal function, e.g. those with acute kidney injury, the eGFR may not accurately reflect actual GFR. Performed By: #### T NT, CBC, CMP ####[place] [address] [address], [place] [phone] Glucose [Mass/Vol] 177 mg/dL High 74-99 [facility] Comment on above: Result Comment: The [place] [employer] (ADA) provides guidance for cutoff values for fasting glucose and random glucose. The ADA defines fasting as no caloric intake for at least 8 hours. Fasting plasma glucose results between 100 to 125 mg/dL indicate increased risk for diabetes (prediabetes).Fasting plasma glucose results greater than or equal to 126 mg/dL meet the criteria for diagnosis of diabetes. In the absence of unequivocal hyperglycemia, results should be confirmed by repeat testing. In a patient with classic symptoms of hyperglycemia or hyperglycemic crisis, random plasma glucose results greater than or equal to 200 mg/dL meet the criteria for diagnosis of diabetes.Reference: Standards of Medical Care in Diabetes 2016, [place] [employer]. Diabetes Care. 2016.39(Suppl 1). Performed By: #### T NT, CBC, CMP ####[facility], [place] [phone] Potassium [Moles/Vol] 5.9 mmol/L High 3.7-5.1 [facility] Comment on above: Performed By: #### T NT, CBC, CMP ####[facility], [place] [phone] Protein [Mass/Vol] 5.3 g/dL Low 6.3-8.0 [facility] Comment on above: Performed By: #### T NT, CBC, CMP ####[facility] [address] [place], [place] [phone] Sodium [Moles/Vol] 136 mmol/L Normal 136-144 [facility] Comment on above: Performed By: #### T NT, CBC, CMP ####[facility] [address] [place], [place] [phone] Urea nitrogen [Mass/Vol] 18 mg/dL Normal 9-24 [facility] Comment on above: Performed By: #### T NT, CBC, CMP ####[facility], [place] [phone] GASA + All FOR RADIANCE USE ONLYon 10-05-2020 Base Excess 0 mmol/L Normal [facility] Comment on above: Performed By: #### A LLBG ####[place] [address] [address], [place] [phone] Blood Gas Comm, Art . Normal [facility] Comment on above: Performed By: #### A LLBG ####[place] [address] [address], [place] [phone] Body temperature 98.6 [degF] Normal [facility] Comment on above: Performed By: #### A LLBG ####[address] [phone] Calcium [Moles/Vol] 1.18 mmol/L Normal 1.08-1.30 [facility] Comment on above: Performed By: #### A LLBG ####[place] [phone] Carboxyhemoglobin ,Art 1.2 % Normal <2.1 [facility] Comment on above: Performed By: #### A LLBG ####[place] [address] [address] [place] [phone] CO2 [Moles/Vol] 25 mmol/L Normal 22.0-28.0 [facility] Comment on above: Performed By: #### A LLBG ####[place] [address] [address] [place] [phone] Glucose [Mass/Vol] 141 mg/dL High 60-105 [facility] Comment on above: Performed By: #### A LLBG ####[place] [address] [address] [phone] HCO3 (Bld) [Moles/Vol] 24 mmol/L Normal 22-26 [facility] Comment on above: Performed By: #### A LLBG ####[place] [address] [address] [place] [phone] Hematocrit (Bld) [Volume fraction] 28.3 % Low 39.0-51.0 [facility] Comment on above: Performed By: #### A LLBG ####[place] [address] [place] [address] [phone] Hemoglobin (Bld) [Mass/Vol] 9.1 g/dL Low 13.0-17.0 [facility] Comment on above: Performed By: #### A LLBG ####[place] [address] [place] [address] [phone] Lactate [Moles/Vol] 1.1 mmol/L Normal 0.5-2.2 [facility] Comment on above: Performed By: #### A LLBG ####[place] [address] [place] [address] [phone] Methemoglobin 1.7 % High <1.6 [facility] Comment on above: Performed By: #### A LLBG ####[place] [address] [place] [address] [phone] Oxyhemoglobin, Art. 95 % Normal 95-98 [facility] Comment on above: Performed By: #### A LLBG ####[place] [address] [place] [address] [phone] pCO2 41 mm Hg Normal 34-46 [facility] Comment on above: Performed By: #### A LLBG ####[place] [address] [place] [address] [phone] pCO2, Temp Correct 41 mm Hg Normal 34-46 [facility] Comment on above: Performed By: #### A LLBG ####[place] [address] [place] [address] [phone] pH (Bld) 7.39 [pH] Normal 7.35-7.45 [facility] Comment on above: Performed By: #### A LLBG ####[place] [address] [place] [address] [phone] pH, Temp Corrected 7.39 Normal 7.35-7.45 [facility] Comment on above: Performed By: #### A LLBG ####[place] [address] [place], [place] [phone] pO2 113 mm Hg High 85-95 [facility] Comment on above: Performed By: #### A LLBG ####[place] [phone] pO2, Temp Corrected 113 mm Hg High 85-95 [facility] Comment on above: Performed By: #### A LLBG ####[place] [phone] Potassium [Moles/Vol] 4.3 mmol/L Normal 3.5-5.0 [facility] Comment on above: Performed By: #### A LLBG ####[place] [phone] Sodium [Moles/Vol] 135 mmol/L Low 136-144 [facility] Comment on above: Performed By: #### A LLBG ####[place] [phone] Base Excess Negative Normal [facility] Comment on above: Performed By: #### A LLBG ####[address] [phone] Blood Gas Comm, Art . Normal [facility] Comment on above: Performed By: #### A LLBG ####[place] [phone] Body temperature 98.6 [degF] Normal [facility] Comment on above: Performed By: #### A LLBG ####[address] [phone] Calcium [Moles/Vol] 1.18 mmol/L Normal 1.08-1.30 [facility] Comment on above: Performed By: #### A LLBG ####[address] [phone] Carboxyhemoglobin ,Art 1.3 % Normal <2.1 [facility] Comment on above: Performed By: #### A LLBG ####[place] [phone] CO2 [Moles/Vol] 25 mmol/L Normal 22.0-28.0 [facility] Comment on above: Performed By: #### A LLBG ####[address] [phone] Glucose [Mass/Vol] 159 mg/dL High 60-105 [facility] Comment on above: Performed By: #### A LLBG ####[place] [phone] HCO3 (Bld) [Moles/Vol] 23 mmol/L Normal 22-26 [facility] Comment on above: Performed By: #### A LLBG ####[place] [phone] Hematocrit (Bld) [Volume fraction] 28.9 % Low 39.0-51.0 [facility] Comment on above: Performed By: #### A LLBG ####[place] [phone] Hemoglobin (Bld) [Mass/Vol] 9.3 g/dL Low 13.0-17.0 [facility] Comment on above: Performed By: #### A LLBG ####[address] [phone] Lactate [Moles/Vol] 1.3 mmol/L Normal 0.5-2.2 [facility] Comment on above: Performed By: #### A LLBG ####[facility]ClevelS[place], [place] [phone] Methemoglobin 1.1 % Normal <1.6 [facility] Comment on above: Performed By: #### A LLBG ####[place] [address] [address]Clevel[place], [place] [phone] Oxyhemoglobin, Art. 96 % Normal 95-98 [facility] Comment on above: Performed By: #### A LLBG ####[place] [address] [address] AveClevelThomas [place]ille [phone] pCO2 42 mm Hg Normal 34-46 [facility] Comment on above: Performed By: #### A LLBG ####[place] [address] [place] [address], [place] [phone] pCO2, Temp Correct 42 mm Hg Normal 34-46 [facility] Comment on above: Performed By: #### A LLBG ####[place] [address] [place] [address]CCh[place] [phone] pH (Bld) 7.37 [pH] Normal 7.35-7.45 [facility] Comment on above: Performed By: #### A LLBG ####[place] [address] [address]ClevelS[place], [place] [phone] pH, Temp Corrected 7.37 Normal 7.35-7.45 [facility] Comment on above: Performed By: #### A LLBG ####[facility]ClevelS[place], [place] [phone] pO2 109 mm Hg High 85-95 [facility] Comment on above: Performed By: #### A LLBG ####[place] [address] [address]Clevel[place], [place] [phone] pO2, Temp Corrected 109 mm Hg High 85-95 [facility] Comment on above: Performed By: #### A LLBG ####[place] [address] [place] [address] [phone] Potassium [Moles/Vol] 4.5 mmol/L Normal 3.5-5.0 [facility] Comment on above: Performed By: #### A LLBG ####[address] [phone] Sodium [Moles/Vol] 134 mmol/L Low 136-144 [facility] Comment on above: Performed By: #### A LLBG ####[place] [address] [address] [place] [phone] Base Excess Negative Normal [facility] Comment on above: Performed By: #### A LLBG ####[address] [phone] Blood Gas Comm, Art . Normal [facility] Comment on above: Performed By: #### A LLBG ####[place] [phone] Body temperature 98.6 [degF] Normal [facility] Comment on above: Performed By: #### A LLBG ####[place] [phone] Calcium [Moles/Vol] 1.21 mmol/L Normal 1.08-1.30 [facility] Comment on above: Performed By: #### A LLBG ####[place] [address] [address] [place] [phone] Carboxyhemoglobin ,Art 1.1 % Normal <2.1 [facility] Comment on above: Performed By: #### A LLBG ####[place] [address] [address] [place] [phone] CO2 [Moles/Vol] 23 mmol/L Normal 22.0-28.0 [facility] Comment on above: Performed By: #### A LLBG ####[place] [address] [address] [place] [phone] Glucose [Mass/Vol] 187 mg/dL High 60-105 [facility] Comment on above: Performed By: #### A LLBG ####[place] [address] [address], [place] [phone] HCO3 (Bld) [Moles/Vol] 22 mmol/L Normal 22-26 [facility] Comment on above: Performed By: #### A LLBG ####[place] [address] [place] [address] [place] [phone] Hematocrit (Bld) [Volume fraction] 27.9 % Low 39.0-51.0 [facility] Comment on above: Performed By: #### A LLBG ####[place] [address] [place] [address] AvSus[place] [phone] Hemoglobin (Bld) [Mass/Vol] 9.0 g/dL Low 13.0-17.0 [facility] Comment on above: Performed By: #### A LLBG ####[place] [address] [place] [address] [phone] Lactate [Moles/Vol] 0.9 mmol/L Normal 0.5-2.2 [facility] Comment on above: Performed By: #### A LLBG ####[place] [address] [place] [address] [place] [phone] Methemoglobin 1.0 % Normal <1.6 [facility] Comment on above: Performed By: #### A LLBG ####[place] [address] [place] [address], [place] [phone] Oxyhemoglobin, Art. 96 % Normal 95-98 [facility] Comment on above: Performed By: #### A LLBG ####[place] [address] [place] [address], [place] [phone] pCO2 40 mm Hg Normal 34-46 [facility] Comment on above: Performed By: #### A LLBG ####[place] [address] [place] [address], [place] [phone] pCO2, Temp Correct 40 mm Hg Normal 34-46 [facility] Comment on above: Performed By: #### A LLBG ####[place] [address] [place] [address], [place] [phone] pH (Bld) 7.35 [pH] Normal 7.35-7.45 [facility] Comment on above: Performed By: #### A LLBG ####[place] [address] [place] [address], [place] [phone] pH, Temp Corrected 7.35 Normal 7.35-7.45 [facility] Comment on above: Performed By: #### A LLBG ####[place] [address] [place] [address], [place] [phone] pO2 96 mm Hg High 85-95 [facility] Comment on above: Performed By: #### A LLBG ####[place] [address] [place] [address], [place] [phone] pO2, Temp Corrected 96 mm Hg High 85-95 [facility] Comment on above: Performed By: #### A LLBG ####[place] [address] [place] [address] [place], [place] [phone] Potassium [Moles/Vol] 4.6 mmol/L Normal 3.5-5.0 [facility] Comment on above: Performed By: #### A LLBG ####[place] [address] [place] [address], [place] [phone] Sodium [Moles/Vol] 135 mmol/L Low 136-144 [facility] Comment on above: Performed By: #### A LLBG ####[place] [address] [place] [address], [place] [phone] Base Excess Negative Normal [facility] Comment on above: Performed By: #### A LLBG ####[place] [address] [place], [place] [phone] Blood Gas Comm, Art . Normal [facility] Comment on above: Performed By: #### A LLBG ####[address] [phone] Body temperature 98.6 [degF] Normal [facility] Comment on above: Performed By: #### A LLBG ####[place] [phone] Calcium [Moles/Vol] 1.22 mmol/L Normal 1.08-1.30 [facility] Comment on above: Performed By: #### A LLBG ####[place] [phone] Carboxyhemoglobin ,Art 1.2 % Normal <2.1 [facility] Comment on above: Performed By: #### A LLBG ####[place] [phone] CO2 [Moles/Vol] 23 mmol/L Normal 22.0-28.0 [facility] Comment on above: Performed By: #### A LLBG ####[place] [phone] Glucose [Mass/Vol] 160 mg/dL High 60-105 [facility] Comment on above: Performed By: #### A LLBG ####[place] [phone] HCO3 (Bld) [Moles/Vol] 21 mmol/L Low 22-26 [facility] Comment on above: Performed By: #### A LLBG ####[place] [phone] Hematocrit (Bld) [Volume fraction] 28.7 % Low 39.0-51.0 [facility] Comment on above: Performed By: #### A LLBG ####[place] [address] [place] [address], [place] [phone] Hemoglobin (Bld) [Mass/Vol] 9.3 g/dL Low 13.0-17.0 [facility] Comment on above: Performed By: #### A LLBG ####[place] [address] [place] [address] [place] [phone] Lactate [Moles/Vol] 1.0 mmol/L Normal 0.5-2.2 [facility] Comment on above: Performed By: #### A LLBG ####[place] [address] [place] [address] [phone] Methemoglobin 1.4 % Normal <1.6 [facility] Comment on above: Performed By: #### A LLBG ####[place] [address] [address] [place] [phone] Oxyhemoglobin, Art. 95 % Normal 95-98 [facility] Comment on above: Performed By: #### A LLBG ####[place] [address] [address] [place] [phone] pCO2 41 mm Hg Normal 34-46 [facility] Comment on above: Performed By: #### A LLBG ####[place] [address] [address] [place] [phone] pCO2, Temp Correct 41 mm Hg Normal 34-46 [facility] Comment on above: Performed By: #### A LLBG ####[place] [address] [address] [place] [phone] pH (Bld) 7.33 [pH] Low 7.35-7.45 [facility] Comment on above: Performed By: #### A LLBG ####[place] [address] [address], [place] [phone] pH, Temp Corrected 7.33 Low 7.35-7.45 [facility] Comment on above: Performed By: #### A LLBG ####[facility], [place] [phone] pO2 96 mm Hg High 85-95 [facility] Comment on above: Performed By: #### A LLBG ####[place] [address] [place] [address], [place] [phone] pO2, Temp Corrected 96 mm Hg High 85-95 [facility] Comment on above: Performed By: #### A LLBG ####[place] [address] [address], [place] [phone] Potassium [Moles/Vol] 4.6 mmol/L Normal 3.5-5.0 [facility] Comment on above: Performed By: #### A LLBG ####[place] [address] [address] [place], [place] [phone] Sodium [Moles/Vol] 135 mmol/L Low 136-144 [facility] Comment on above: Performed By: #### A LLBG ####[place] [address] [address] [place], [place] [phone] Base Excess Negative Normal [facility] Comment on above: Performed By: #### A LLBG ####[address] [phone] Blood Gas Comm, Art . Normal [facility] Comment on above: Performed By: #### A LLBG ####[place] [address] [address], [place] [phone] Body temperature 98.6 [degF] Normal [facility] Comment on above: Performed By: #### A LLBG ####[place] [address] [address], [place] [phone] Calcium [Moles/Vol] 1.22 mmol/L Normal 1.08-1.30 [facility] Comment on above: Performed By: #### A LLBG ####[place] [address] [place] [phone] Carboxyhemoglobin ,Art 1.2 % Normal <2.1 [facility] Comment on above: Performed By: #### A LLBG ####[place] [address] [address] [place], [place] [phone] CO2 [Moles/Vol] 23 mmol/L Normal 22.0-28.0 [facility] Comment on above: Performed By: #### A LLBG ####[address] [phone] Glucose [Mass/Vol] 139 mg/dL High 60-105 [facility] Comment on above: Performed By: #### A LLBG ####[address] [phone] HCO3 (Bld) [Moles/Vol] 21 mmol/L Low 22-26 [facility] Comment on above: Performed By: #### A LLBG ####[address] [phone] Hematocrit (Bld) [Volume fraction] 25.0 % Low 39.0-51.0 [facility] Comment on above: Performed By: #### A LLBG ####[place] [address] [address] [place] [phone] Hemoglobin (Bld) [Mass/Vol] 8.0 g/dL Low 13.0-17.0 [facility] Comment on above: Performed By: #### A LLBG ####[place] [address] [address], [place] [phone] Lactate [Moles/Vol] 0.7 mmol/L Normal 0.5-2.2 [facility] Comment on above: Performed By: #### A LLBG ####[place] [address] [address], [place] [phone] Methemoglobin 1.4 % Normal <1.6 [facility] Comment on above: Performed By: #### A LLBG ####[facility], [place] [phone] Oxyhemoglobin, Art. 95 % Normal 95-98 [facility] Comment on above: Performed By: #### A LLBG ####[facility] [address], [place] [phone] pCO2 41 mm Hg Normal 34-46 [facility] Comment on above: Performed By: #### A LLBG ####[facility], [place] [phone] pCO2, Temp Correct 41 mm Hg Normal 34-46 [facility] Comment on above: Performed By: #### A LLBG ####[place] [address] [place] [address], [place] [phone] pH (Bld) 7.33 [pH] Low 7.35-7.45 [facility] Comment on above: Performed By: #### A LLBG ####[facility]Cclevel[facility]uther[facility] hospitalandOd[place], [place] [phone] pH, Temp Corrected 7.33 Low 7.35-7.45 [facility] Comment on above: Performed By: #### A LLBG ####[facility]Cclevel[facility] clinic luther[facility] hospitalandOd[place], [place] [phone] pO2 97 mm Hg High 85-95 [facility] Comment on above: Performed By: #### A LLBG ####[facility], [place] [phone] pO2, Temp Corrected 97 mm Hg High 85-95 [facility] Comment on above: Performed By: #### A LLBG ####[facility], [place] [phone] Potassium [Moles/Vol] 4.4 mmol/L Normal 3.5-5.0 [facility] Comment on above: Performed By: #### A LLBG ####[facility], [place] [phone] Sodium [Moles/Vol] 136 mmol/L Normal 136-144 [facility] Comment on above: Performed By: #### A LLBG ####[place] [address], [place] [phone] Base Excess Negative Normal [facility] Comment on above: Performed By: #### A LLBG ####[place] [address] [address], [place] [phone] Blood Gas Comm, Art . Normal [facility] Comment on above: Performed By: #### A LLBG ####[place] [address] [address], [place] [phone] Body temperature 98.6 [degF] Normal [facility] Comment on above: Performed By: #### A LLBG ####[place] [address] [address], [place] [phone] Calcium [Moles/Vol] 1.29 mmol/L Normal 1.08-1.30 [facility] Comment on above: Performed By: #### A LLBG ####[place] [address] [address], [place] [phone] Carboxyhemoglobin ,Art 1.1 % Normal <2.1 [facility] Comment on above: Performed By: #### A LLBG ####[place] [address] [address], [place] [phone] CO2 [Moles/Vol] 25 mmol/L Normal 22.0-28.0 [facility] Comment on above: Performed By: #### A LLBG ####[place] [address] [address], [place] [phone] Glucose [Mass/Vol] 105 mg/dL Normal 60-105 [facility] Comment on above: Performed By: #### A LLBG ####[place] [address] [place] [address], [place] [phone] HCO3 (Bld) [Moles/Vol] 24 mmol/L Normal 22-26 [facility] Comment on above: Performed By: #### A LLBG ####[place] [address] [address], [place] [phone] Hematocrit (Bld) [Volume fraction] 26.4 % Low 39.0-51.0 [facility] Comment on above: Performed By: #### A LLBG ####[place] [address] [address] [phone] Hemoglobin (Bld) [Mass/Vol] 8.5 g/dL Low 13.0-17.0 [facility] Comment on above: Performed By: #### A LLBG ####[place] [address] [address] [phone] Lactate [Moles/Vol] 0.7 mmol/L Normal 0.5-2.2 [facility] Comment on above: Performed By: #### A LLBG ####[place] [address] [address] [phone] Methemoglobin 1.3 % Normal <1.6 [facility] Comment on above: Performed By: #### A LLBG ####[place] [address] [address] [phone] Oxyhemoglobin, Art. 96 % Normal 95-98 [facility] Comment on above: Performed By: #### A LLBG ####[place] [address] [place] [address] [phone] pCO2 45 mm Hg Normal 34-46 [facility] Comment on above: Performed By: #### A LLBG ####[place] [address] [address], [place] [phone] pCO2, Temp Correct 45 mm Hg Normal 34-46 [facility] Comment on above: Performed By: #### A LLBG ####[facility]C[place], [place] [phone] pH (Bld) 7.34 [pH] Low 7.35-7.45 [facility] Comment on above: Performed By: #### A LLBG ####[facility], [place] [phone] pH, Temp Corrected 7.34 Low 7.35-7.45 [facility] Comment on above: Performed By: #### A LLBG ####[place] [address] [address], [place] [phone] pO2 127 mm Hg High 85-95 [facility] Comment on above: Performed By: #### A LLBG ####[place] [address] [address], [place] [phone] pO2, Temp Corrected 127 mm Hg High 85-95 [facility] Comment on above: Performed By: #### A LLBG ####[place] [address] [address], [place] [phone] Potassium [Moles/Vol] 4.3 mmol/L Normal 3.5-5.0 [facility] Comment on above: Performed By: #### A LLBG ####[facility]C[place], [place] [phone] Sodium [Moles/Vol] 136 mmol/L Normal 136-144 [facility] Comment on above: Performed By: #### A LLBG ####[facility], [place] [phone] Base Excess Negative Normal [facility] Comment on above: Performed By: #### A LLBG ####[facility]C[place], [place] [phone] Blood Gas Comm, Art . Normal [facility] Comment on above: Performed By: #### A LLBG ####[place] [address] [address], [place] [phone] Body temperature 98.6 [degF] Normal [facility] Comment on above: Performed By: #### A LLBG ####[place] [address] [address], [place] [phone] Calcium [Moles/Vol] 1.17 mmol/L Normal 1.08-1.30 [facility] Comment on above: Performed By: #### A LLBG ####[place] [address] [address], [place] [phone] Carboxyhemoglobin ,Art 1.2 % Normal <2.1 [facility] Comment on above: Performed By: #### A LLBG ####[address] [phone] CO2 [Moles/Vol] 25 mmol/L Normal 22.0-28.0 [facility] Comment on above: Performed By: #### A LLBG ####[place] [address] [address] [place], [place] [phone] Glucose [Mass/Vol] 132 mg/dL High 60-105 [facility] Comment on above: Performed By: #### A LLBG ####[place] [address] [address], [place] [phone] HCO3 (Bld) [Moles/Vol] 23 mmol/L Normal 22-26 [facility] Comment on above: Performed By: #### A LLBG ####[place] [address] [address], [place] [phone] Hematocrit (Bld) [Volume fraction] 29.4 % Low 39.0-51.0 [facility] Comment on above: Performed By: #### A LLBG ####[place] [address] [address], [place] [phone] Hemoglobin (Bld) [Mass/Vol] 9.5 g/dL Low 13.0-17.0 [facility] Comment on above: Performed By: #### A LLBG ####[place] [address] [address]Sus[place] [phone] Lactate [Moles/Vol] 1.0 mmol/L Normal 0.5-2.2 [facility] Comment on above: Performed By: #### A LLBG ####[place] [address] [address] [phone] Methemoglobin 1.6 % High <1.6 [facility] Comment on above: Performed By: #### A LLBG ####[place] [address] [address]Sus[place] [phone] Oxyhemoglobin, Art. 95 % Normal 95-98 [facility] Comment on above: Performed By: #### A LLBG ####[place] [address] [address]Sus[place] [phone] pCO2 41 mm Hg Normal 34-46 [facility] Comment on above: Performed By: #### A LLBG ####[place] [address] [address] [phone] pCO2, Temp Correct 41 mm Hg Normal 34-46 [facility] Comment on above: Performed By: #### A LLBG ####[place] [address] [address] [place] [phone] pH (Bld) 7.37 [pH] Normal 7.35-7.45 [facility] Comment on above: Performed By: #### A LLBG ####[place] [address] [address], [place] [phone] pH, Temp Corrected 7.37 Normal 7.35-7.45 [facility] Comment on above: Performed By: #### A LLBG ####[place] [address] [address], [place] [phone] pO2 107 mm Hg High 85-95 [facility] Comment on above: Performed By: #### A LLBG ####[facility], [place] [phone] pO2, Temp Corrected 107 mm Hg High 85-95 [facility] Comment on above: Performed By: #### A LLBG ####[place] [address] [address], [place] [phone] Potassium [Moles/Vol] 4.2 mmol/L Normal 3.5-5.0 [facility] Comment on above: Performed By: #### A LLBG ####[place] [address] [address] [phone] Sodium [Moles/Vol] 136 mmol/L Normal 136-144 [facility] Comment on above: Performed By: #### A LLBG ####[place] [address] [address] [phone] Base Excess Negative Normal [facility] Comment on above: Performed By: #### A LLBG ####[place] [address] [address] [phone] Blood Gas Comm, Art . Normal [facility] Comment on above: Performed By: #### A LLBG ####[facility] [phone] Body temperature 98.6 [degF] Normal [facility] Comment on above: Performed By: #### A LLBG ####[facility]C[place] [phone] Calcium [Moles/Vol] 1.19 mmol/L Normal 1.08-1.30 [facility] Comment on above: Performed By: #### A LLBG ####[place] [address] [place] [address]C[place] [phone] Carboxyhemoglobin ,Art 1.0 % Normal <2.1 [facility] Comment on above: Performed By: #### A LLBG ####[place] [address] [address], [place] [phone] CO2 [Moles/Vol] 24 mmol/L Normal 22.0-28.0 [facility] Comment on above: Performed By: #### A LLBG ####[place] [address] [address] [phone] Glucose [Mass/Vol] 157 mg/dL High 60-105 [facility] Comment on above: Performed By: #### A LLBG ####[place] [address] [address] [phone] HCO3 (Bld) [Moles/Vol] 23 mmol/L Normal 22-26 [facility] Comment on above: Performed By: #### A LLBG ####[place] [address] [address] [phone] Hematocrit (Bld) [Volume fraction] 30.4 % Low 39.0-51.0 [facility] Comment on above: Performed By: #### A LLBG ####[place] [address] [address] [phone] Hemoglobin (Bld) [Mass/Vol] 9.8 g/dL Low 13.0-17.0 [facility] Comment on above: Performed By: #### A LLBG ####[place] [address] [address] [phone] Lactate [Moles/Vol] 0.9 mmol/L Normal 0.5-2.2 [facility] Comment on above: Performed By: #### A LLBG ####[place] [address] [address] [phone] Methemoglobin 1.2 % Normal <1.6 [facility] Comment on above: Performed By: #### A LLBG ####[place] [address] [address] [phone] Oxyhemoglobin, Art. 96 % Normal 95-98 [facility] Comment on above: Performed By: #### A LLBG ####[place] [address] [address]CO[place], [place] [phone] pCO2 44 mm Hg Normal 34-46 [facility] Comment on above: Performed By: #### A LLBG ####[place] [address] [address], [place] [phone] pCO2, Temp Correct 44 mm Hg Normal 34-46 [facility] Comment on above: Performed By: #### A LLBG ####[place] [address] [address], [place] [phone] pH (Bld) 7.34 [pH] Low 7.35-7.45 [facility] Comment on above: Performed By: #### A LLBG ####[place] [address] [address], [place] [phone] pH, Temp Corrected 7.34 Low 7.35-7.45 [facility] Comment on above: Performed By: #### A LLBG ####[place] [address] [address], [place] [phone] pO2 116 mm Hg High 85-95 [facility] Comment on above: Performed By: #### A LLBG ####[place] [address] [address], [place] [phone] pO2, Temp Corrected 116 mm Hg High 85-95 [facility] Comment on above: Performed By: #### A LLBG ####[place] [address] [address], [place] [phone] Potassium [Moles/Vol] 4.6 mmol/L Normal 3.5-5.0 [facility] Comment on above: Performed By: #### A LLBG ####[place] [address] [address], [place] [phone] Sodium [Moles/Vol] 138 mmol/L Normal 136-144 [facility] Comment on above: Performed By: #### A LLBG ####[place] [address] [address] [phone] Base Excess Negative Normal [facility] Comment on above: Performed By: #### A LLBG ####[place] [address] [address], [place] [phone] Blood Gas Comm, Art . Normal [facility] Comment on above: Performed By: #### A LLBG ####[place] [address] [address]C[place] [phone] Body temperature 98.6 [degF] Normal [facility] Comment on above: Performed By: #### A LLBG ####[place] [phone] Calcium [Moles/Vol] 1.12 mmol/L Normal 1.08-1.30 [facility] Comment on above: Performed By: #### A LLBG ####[place] [address] [address] [phone] Carboxyhemoglobin ,Art 1.0 % Normal <2.1 [facility] Comment on above: Performed By: #### A LLBG ####[place] [address] [address] [phone] CO2 [Moles/Vol] 23 mmol/L Normal 22.0-28.0 [facility] Comment on above: Performed By: #### A LLBG ####[place] [address] [address] [phone] Glucose [Mass/Vol] 193 mg/dL High 60-105 [facility] Comment on above: Performed By: #### A LLBG ####[place] [address] [address], [place] [phone] HCO3 (Bld) [Moles/Vol] 22 mmol/L Normal 22-26 [facility] Comment on above: Performed By: #### A LLBG ####[place] [address] [address] [phone] Hematocrit (Bld) [Volume fraction] 31.6 % Low 39.0-51.0 [facility] Comment on above: Performed By: #### A LLBG ####[place] [address] [address] AvSus[place] [phone] Hemoglobin (Bld) [Mass/Vol] 10.2 g/dL Low 13.0-17.0 [facility] Comment on above: Performed By: #### A LLBG ####[place] [phone] Lactate [Moles/Vol] 0.9 mmol/L Normal 0.5-2.2 [facility] Comment on above: Performed By: #### A LLBG ####[place] [address] [address] [phone] Methemoglobin 1.2 % Normal <1.6 [facility] Comment on above: Performed By: #### A LLBG ####[place] [address] [address] [place] [phone] Oxyhemoglobin, Art. 97 % Normal 95-98 [facility] Comment on above: Performed By: #### A LLBG ####[place] [address] [address] [phone] pCO2 38 mm Hg Normal 34-46 [facility] Comment on above: Performed By: #### A LLBG ####[place] [address] [place] [address] [phone] pCO2, Temp Correct 38 mm Hg Normal 34-46 [facility] Comment on above: Performed By: #### A LLBG ####[place] [address] [place] [address] [phone] pH (Bld) 7.37 [pH] Normal 7.35-7.45 [facility] Comment on above: Performed By: #### A LLBG ####[place] [address] [address], [place] [phone] pH, Temp Corrected 7.37 Normal 7.35-7.45 [facility] Comment on above: Performed By: #### A LLBG ####[place] [address] [place] [address], [place] [phone] pO2 126 mm Hg High 85-95 [facility] Comment on above: Performed By: #### A LLBG ####[place] [address] [address], [place] [phone] pO2, Temp Corrected 126 mm Hg High 85-95 [facility] Comment on above: Performed By: #### A LLBG ####[place] [address] [address] [place] [phone] Potassium [Moles/Vol] 5.6 mmol/L High 3.5-5.0 [facility] Comment on above: Performed By: #### A LLBG ####[place] [address] [address], [place] [phone] Sodium [Moles/Vol] 133 mmol/L Low 136-144 [facility] Comment on above: Performed By: #### A LLBG ####[place] [address] [address] [place], [place] [phone] Base Excess Negative Normal [facility] Comment on above: Performed By: #### A LLBG ####[place] [address] [address] [place], [place] [phone] Blood Gas Comm, Art . Normal [facility] Comment on above: Performed By: #### A LLBG ####[place] [address] [address] [place], [place] [phone] Body temperature 98.6 [degF] Normal [facility] Comment on above: Performed By: #### A LLBG ####[place] [address] [place] [address]C[place] [phone] Calcium [Moles/Vol] 1.15 mmol/L Normal 1.08-1.30 [facility] Comment on above: Performed By: #### A LLBG ####[place] [address] [place] [address] [phone] Carboxyhemoglobin ,Art 1.9 % Normal <2.1 [facility] Comment on above: Performed By: #### A LLBG ####[place] [address] [place] [address] [phone] CO2 [Moles/Vol] 23 mmol/L Normal 22.0-28.0 [facility] Comment on above: Performed By: #### A LLBG ####[place] [address] [place] [address] [phone] Glucose [Mass/Vol] 189 mg/dL High 60-105 [facility] Comment on above: Performed By: #### A LLBG ####[place] [address] [place] [address] [phone] HCO3 (Bld) [Moles/Vol] 22 mmol/L Normal 22-26 [facility] Comment on above: Performed By: #### A LLBG ####[place] [address] [place] [address] [phone] Hematocrit (Bld) [Volume fraction] 31.1 % Low 39.0-51.0 [facility] Comment on above: Performed By: #### A LLBG ####[place] [address] [place] [address] [phone] Hemoglobin (Bld) [Mass/Vol] 10.1 g/dL Low 13.0-17.0 [facility] Comment on above: Performed By: #### A LLBG ####[place] [address] [place] [address] [place] [phone] Lactate [Moles/Vol] 1.0 mmol/L Normal 0.5-2.2 [facility] Comment on above: Performed By: #### A LLBG ####[address] [place], [place] [phone] Methemoglobin 0.2 % Normal <1.6 [facility] Comment on above: Performed By: #### A LLBG ####[place] [phone] Oxyhemoglobin, Art. 96 % Normal 95-98 [facility] Comment on above: Performed By: #### A LLBG ####[place] [phone] pCO2 40 mm Hg Normal 34-46 [facility] Comment on above: Performed By: #### A LLBG ####[place] [phone] pCO2, Temp Correct 40 mm Hg Normal 34-46 [facility] Comment on above: Performed By: #### A LLBG ####[place] [phone] pH (Bld) 7.35 [pH] Normal 7.35-7.45 [facility] Comment on above: Performed By: #### A LLBG ####[place] [phone] pH, Temp Corrected 7.35 Normal 7.35-7.45 [facility] Comment on above: Performed By: #### A LLBG ####[address] [phone] pO2 149 mm Hg High 85-95 [facility] Comment on above: Performed By: #### A LLBG ####[place] [phone] pO2, Temp Corrected 149 mm Hg High 85-95 [facility] Comment on above: Performed By: #### A LLBG ####[facility] [place], [place] [phone] Potassium [Moles/Vol] 5.7 mmol/L High 3.5-5.0 [facility] Comment on above: Performed By: #### A LLBG ####[address] [phone] Sodium [Moles/Vol] 134 mmol/L Low 136-144 [facility] Comment on above: Performed By: #### A LLBG ####[place] [address] [place], [place] [phone] Troponin Ton 10-05-2020 Troponin T.cardiac [Mass/Vol] 0.687 ug/L High 0.000-0.029 [facility] Comment on above: Result Comment: Call ed to and read back by: Christi Danielle RN [id number] 10/05/20 0214 [address] Performed By: #### T NT, CBC, CMP ####[address] [phone] XR CHEST 1V FRONTAL PORTon 0 10-05-2020 XR CHEST 1V FRONTAL PORT Normal [facility] ALLIED HEALTHon 10-04-2020 ALLIED HEALTH Normal [facility] ANES Manjit 10-04-2020 ANES POST Normal [facility] APTTon 10-04-2020 aPTT Coag (Bld) [Time] 27.3 s Normal 23.0-32.4 [facility] Comment on above: Result Comment: Unfr actionated Heparin Therapeutic Ranges:Standard Heparin Nomogram: 53 to 78 seconds (anti-Xa level of 0.3 to 0.7 U/ml)Low Dose/ACS Nomogram: 49 to 67 seconds (anti-Xa level of 0.2 to 0.5 U/ml)Stroke Treatment Nomogram: 49 to 67 seconds (anti-Xa level of 0.2 to 0.5 U/ml)Note: The APTT therapeutic range has been determined for the current lot of laboratory APTT reagent in use throughout the [facility]. Performed By: #### C BC, FIBCT, PT, PTT ####[place] [address] [address], [place] [phone] CBCon 10-04-2020 Absolute nRBC <0.01 Normal <0.01 [facility] Comment on above: Performed By: #### C BC, FIBCT, PT, PTT ####[place] [address] [address] [place] [phone] Erythrocyte distribution width (RBC) [Ratio] 15.4 % High 11.5-15.0 [facility] Comment on above: Performed By: #### C BC, FIBCT, PT, PTT ####[place] [address] [address] [place] [phone] Hematocrit (Bld) [Volume fraction] 27.7 % Low 39.0-51.0 [facility] Comment on above: Performed By: #### C BC, FIBCT, PT, PTT ####[place] [address] [address] [place] [phone] Hemoglobin (Bld) [Mass/Vol] 8.8 g/dL Low 13.0-17.0 [facility] Comment on above: Performed By: #### C BC, FIBCT, PT, PTT ####[place] [address] [address] [place] [phone] MCH 28.2 pG Normal 26.0-34.0 [facility] Comment on above: Performed By: #### C BC, FIBCT, PT, PTT ####[place] [address] [address] [place] [phone] MCHC (RBC) [Mass/Vol] 31.8 g/dL Normal 30.5-36.0 [facility] Comment on above: Performed By: #### C BC, FIBCT, PT, PTT ####[place] [address] [address], [place] [phone] MCV (RBC) [Entitic vol] 88.8 fL Normal 80.0-100.0 [facility] Comment on above: Performed By: #### C BC, FIBCT, PT, PTT ####[place] [address] [address], [place] [phone] Platelet mean volume (Bld) [Entitic vol] 10.2 fL Normal 9.0-12.7 [facility] Comment on above: Performed By: #### C BC, FIBCT, PT, PTT ####[place] [address] [address], [place] [phone] Platelets (Bld) [#/Vol] 115 10*3/uL Low 150-400 [facility] Comment on above: Result Comment: Resu lt checked and verifiedNo clot detected. Performed By: #### C BC, FIBCT, PT, PTT ####[place] [address] [address], [place] [phone] RBC (Bld) [#/Vol] 3.12 10*6/uL Low 4.20-6.00 [facility] Comment on above: Performed By: #### C BC, FIBCT, PT, PTT ####[place] [address] [address], [place] [phone] WBC (Bld) [#/Vol] 12.07 10*3/uL High 3.70-11.00 [facility] Comment on above: Performed By: #### C BC, FIBCT, PT, PTT ####[place] [address] [address], [place] [phone] Exposure Profile Pton 2020 HBsAg Negative Normal Negative [facility] Comment on above: Performed By: #### H EXPOH ####[place] [address] [address], [place] [phone] Hepatitis C Ab IA Negative Normal Negative [facility] Comment on above: Performed By: #### H EXPOH ####[place] [address] [place], [place] [phone] HIV 12 Ag/Ab Non-Reactive Normal Non Reactive [facility] Comment on above: Performed By: #### H EXPOH ####[address] [phone] HIV Rapid [facility] Non-Reactive Normal Non Reactive [facility] Comment on above: Result Comment: Nega tive for HIV-1 and HIV-2 antibodies.A non-reactive result does not preclude the possibility of exposure to HIV or infection with HIV. An antibody response to recent exposure may take several weeks to reach detectable levels with this assay.Performed by the [employer] Rapid HIV-1/2 Antibody Test.HIV Information: [place] Rev. Code 3701.243(E):This information has been disclosed to you from confidential records protected from disclosure by state law. You shall make no further disclosure of this information without the specific, written, and informed release of the individual to whom it pertains or as otherwise permitted by state law.A general authorization for the release of medical or other information is not sufficient for the purpose of the release of HIV test results or diagnoses.Called to and read back by:Leida WONG RN 10/04/20 AT 1450 CJUDIE Performed By: #### H EXPOH ####[address] [phone] HIV-1/2 Antibody Normal [facility] Comment on above: Result Comment: Test Not IndicatedNegativeNo evidence of HIV-1 or HIV-2 infection. Should recent infection be suspected, repeat testing may be considered 2-3 weeks after this draw.HIV Information: [place] Rev. Code 3701.243(E):This information has been disclosed to you from confidential records protected from disclosure by state law. You shall make no further disclosure of this information without the specific, written, and informed release of the individual to whom it pertains or as otherwise permitted by state law.A general authorization for the release of medical or other information is not sufficient for the purpose of the release of HIV test results or diagnoses. Performed By: #### H EXPOH ####[facility] [address], [place] [phone] Fibrinogenon 10-04-2020 Fibrinogen 189 mg/dL Low 200-400 [facility] Comment on above: Performed By: #### C BC, FIBCT, PT, PTT ####[facility], [place] [phone] GASA + All FOR RADIANCE USE ONLYon 10-04-2020 Base Excess Negative Normal [facility] Comment on above: Performed By: #### A LLBG ####[facility], [place] [phone] Blood Gas Comm, Art . Normal [facility] Comment on above: Performed By: #### A LLBG ####[facility], [place] [phone] Body temperature 98.6 [degF] Normal [facility] Comment on above: Performed By: #### A LLBG ####[place] [address] [address] [place] [phone] Calcium [Moles/Vol] 1.18 mmol/L Normal 1.08-1.30 [facility] Comment on above: Performed By: #### A LLBG ####[facility] [place] [phone] Carboxyhemoglobin ,Art 1.0 % Normal <2.1 [facility] Comment on above: Performed By: #### A LLBG ####[facility] [place] [phone] CO2 [Moles/Vol] 24 mmol/L Normal 22.0-28.0 [facility] Comment on above: Performed By: #### A LLBG ####[facility], [place] [phone] Glucose [Mass/Vol] 146 mg/dL High 60-105 [facility] Comment on above: Performed By: #### A LLBG ####[place] [address] [address], [place] [phone] HCO3 (Bld) [Moles/Vol] 23 mmol/L Normal 22-26 [facility] Comment on above: Performed By: #### A LLBG ####[place] [address] [address] [phone] Hematocrit (Bld) [Volume fraction] 30.4 % Low 39.0-51.0 [facility] Comment on above: Performed By: #### A LLBG ####[place] [address] [address], [place] [phone] Hemoglobin (Bld) [Mass/Vol] 9.8 g/dL Low 13.0-17.0 [facility] Comment on above: Performed By: #### A LLBG ####[place] [address] [address] [place] [phone] Lactate [Moles/Vol] 1.0 mmol/L Normal 0.5-2.2 [facility] Comment on above: Performed By: #### A LLBG ####[place] [address] [address], [place] [phone] Methemoglobin 1.1 % Normal <1.6 [facility] Comment on above: Performed By: #### A LLBG ####[place] [address] [address], [place] [phone] Oxyhemoglobin, Art. 97 % Normal 95-98 [facility] Comment on above: Performed By: #### A LLBG ####[place] [address] [address], [place] [phone] pCO2 42 mm Hg Normal 34-46 [facility] Comment on above: Performed By: #### A LLBG ####[place] [address] [address] [phone] pCO2, Temp Correct 42 mm Hg Normal 34-46 [facility] Comment on above: Performed By: #### A LLBG ####[place] [address], [place] [phone] pH (Bld) 7.35 [pH] Normal 7.35-7.45 [facility] Comment on above: Performed By: #### A LLBG ####[place] [address] [address], [place] [phone] pH, Temp Corrected 7.35 Normal 7.35-7.45 [facility] Comment on above: Performed By: #### A LLBG ####[place] [address] [address] [place], [place] [phone] pO2 173 mm Hg High 85-95 [facility] Comment on above: Performed By: #### A LLBG ####[place] [address] [address], [place] [phone] pO2, Temp Corrected 173 mm Hg High 85-95 [facility] Comment on above: Performed By: #### A LLBG ####[place] [address] [address], [place] [phone] Potassium [Moles/Vol] 4.8 mmol/L Normal 3.5-5.0 [facility] Comment on above: Performed By: #### A LLBG ####[place] [address] [address], [place] [phone] Sodium [Moles/Vol] 136 mmol/L Normal 136-144 [facility] Comment on above: Performed By: #### A LLBG ####[place] [address] [address], [place] [phone] Base Excess Negative Normal [facility] Comment on above: Performed By: #### A LLBG ####[place] [address] [address] [place], [place] [phone] Blood Gas Comm, Art . Normal [facility] Comment on above: Performed By: #### A LLBG ####[place] [address] [address] [phone] Body temperature 98.6 [degF] Normal [facility] Comment on above: Performed By: #### A LLBG ####[place] [address] [address] [phone] Calcium [Moles/Vol] 1.18 mmol/L Normal 1.08-1.30 [facility] Comment on above: Performed By: #### A LLBG ####[place] [address] [address] [place] [phone] Carboxyhemoglobin ,Art 0.9 % Normal <2.1 [facility] Comment on above: Performed By: #### A LLBG ####[place] [address] [address] [place] [phone] CO2 [Moles/Vol] 24 mmol/L Normal 22.0-28.0 [facility] Comment on above: Performed By: #### A LLBG ####[place] [address] [address] [place] [phone] Glucose [Mass/Vol] 116 mg/dL High 60-105 [facility] Comment on above: Performed By: #### A LLBG ####[place] [address] [address] [phone] HCO3 (Bld) [Moles/Vol] 22 mmol/L Normal 22-26 [facility] Comment on above: Performed By: #### A LLBG ####[place] [address] [address] [place] [phone] Hematocrit (Bld) [Volume fraction] 30.3 % Low 39.0-51.0 [facility] Comment on above: Performed By: #### A LLBG ####[place] [address] [address] [phone] Hemoglobin (Bld) [Mass/Vol] 9.8 g/dL Low 13.0-17.0 [facility] Comment on above: Performed By: #### A LLBG ####[place] [address] [address] [phone] Lactate [Moles/Vol] 1.2 mmol/L Normal 0.5-2.2 [facility] Comment on above: Performed By: #### A LLBG ####[place] [address] [address] [place] [phone] Methemoglobin 1.4 % Normal <1.6 [facility] Comment on above: Performed By: #### A LLBG ####[place] [address] [address] [place] [phone] Oxyhemoglobin, Art. 96 % Normal 95-98 [facility] Comment on above: Performed By: #### A LLBG ####[place] [address] [address] [phone] pCO2 42 mm Hg Normal 34-46 [facility] Comment on above: Performed By: #### A LLBG ####[place] [address] [address] [phone] pCO2, Temp Correct 42 mm Hg Normal 34-46 [facility] Comment on above: Performed By: #### A LLBG ####[place] [address] [address] [place] [phone] pH (Bld) 7.35 [pH] Normal 7.35-7.45 [facility] Comment on above: Performed By: #### A LLBG ####[place] [address] [address], [place] [phone] pH, Temp Corrected 7.35 Normal 7.35-7.45 [facility] Comment on above: Performed By: #### A LLBG ####[place] [address] [address], [place] [phone] pO2 139 mm Hg High 85-95 [facility] Comment on above: Performed By: #### A LLBG ####[address] [phone] pO2, Temp Corrected 139 mm Hg High 85-95 [facility] Comment on above: Performed By: #### A LLBG ####[place] [phone] Potassium [Moles/Vol] 4.5 mmol/L Normal 3.5-5.0 [facility] Comment on above: Performed By: #### A LLBG ####[place] [phone] Sodium [Moles/Vol] 137 mmol/L Normal 136-144 [facility] Comment on above: Performed By: #### A LLBG ####[place] [phone] Base Excess Negative Normal [facility] Comment on above: Performed By: #### A LLBG ####[place] [phone] Blood Gas Comm, Art .CPAP Normal [facility] Comment on above: Performed By: #### A LLBG ####[place] [phone] Body temperature 98.6 [degF] Normal [facility] Comment on above: Performed By: #### A LLBG ####[place] [phone] Calcium [Moles/Vol] 1.14 mmol/L Normal 1.08-1.30 [facility] Comment on above: Performed By: #### A LLBG ####[place] [phone] Carboxyhemoglobin ,Art 1.1 % Normal <2.1 [facility] Comment on above: Performed By: #### A LLBG ####[place] [address] [address], [place] [phone] CO2 [Moles/Vol] 24 mmol/L Normal 22.0-28.0 [facility] Comment on above: Performed By: #### A LLBG ####[place] [address] [address], [place] [phone] Glucose [Mass/Vol] 81 mg/dL Normal 60-105 [facility] Comment on above: Performed By: #### A LLBG ####[place] [address] [address], [place] [phone] HCO3 (Bld) [Moles/Vol] 23 mmol/L Normal 22-26 [facility] Comment on above: Performed By: #### A LLBG ####[place] [phone] Hematocrit (Bld) [Volume fraction] 30.0 % Low 39.0-51.0 [facility] Comment on above: Performed By: #### A LLBG ####[place] [phone] Hemoglobin (Bld) [Mass/Vol] 9.7 g/dL Low 13.0-17.0 [facility] Comment on above: Performed By: #### A LLBG ####[place] [address] [address], [place] [phone] Lactate [Moles/Vol] 1.8 mmol/L Normal 0.5-2.2 [facility] Comment on above: Performed By: #### A LLBG ####[place] [address] [address], [place] [phone] Methemoglobin 1.3 % Normal <1.6 [facility] Comment on above: Performed By: #### A LLBG ####[place] [address]ClevelSizer[place], [place] [phone] Oxyhemoglobin, Art. 97 % Normal 95-98 [facility] Comment on above: Performed By: #### A LLBG ####[place] [address] [address], [place] [phone] pCO2 41 mm Hg Normal 34-46 [facility] Comment on above: Performed By: #### A LLBG ####[place] [address] [address], [place] [phone] pCO2, Temp Correct 41 mm Hg Normal 34-46 [facility] Comment on above: Performed By: #### A LLBG ####[place] [address] [address], [place] [phone] pH (Bld) 7.36 [pH] Normal 7.35-7.45 [facility] Comment on above: Performed By: #### A LLBG ####[place] [address] [address], [place] [phone] pH, Temp Corrected 7.36 Normal 7.35-7.45 [facility] Comment on above: Performed By: #### A LLBG ####[place] [address] [address], [place] [phone] pO2 157 mm Hg High 85-95 [facility] Comment on above: Performed By: #### A LLBG ####[place] [address] [address], [place] [phone] pO2, Temp Corrected 157 mm Hg High 85-95 [facility] Comment on above: Performed By: #### A LLBG ####[place] [address] [address], [place] [phone] Potassium [Moles/Vol] 4.0 mmol/L Normal 3.5-5.0 [facility] Comment on above: Performed By: #### A LLBG ####[facility] [address] [phone] Sodium [Moles/Vol] 138 mmol/L Normal 136-144 [facility] Comment on above: Performed By: #### A LLBG ####[place] [address] [address], [place] [phone] Base Excess Negative Normal [facility] Comment on above: Performed By: #### A LLBG ####[address] [phone] Blood Gas Comm, Art . Normal [facility] Comment on above: Performed By: #### A LLBG ####[address] [phone] Body temperature 98.6 [degF] Normal [facility] Comment on above: Performed By: #### A LLBG ####[address] [phone] Calcium [Moles/Vol] 1.17 mmol/L Normal 1.08-1.30 [facility] Comment on above: Performed By: #### A LLBG ####[address] [phone] Carboxyhemoglobin ,Art 0.9 % Normal <2.1 [facility] Comment on above: Performed By: #### A LLBG ####[address] [phone] CO2 [Moles/Vol] 22 mmol/L Normal 22.0-28.0 [facility] Comment on above: Performed By: #### A LLBG ####[address] [phone] Glucose [Mass/Vol] 150 mg/dL High 60-105 [facility] Comment on above: Performed By: #### A LLBG ####[address] [phone] HCO3 (Bld) [Moles/Vol] 21 mmol/L Low 22-26 [facility] Comment on above: Performed By: #### A LLBG ####[place] [address] [address] [place] [phone] Hematocrit (Bld) [Volume fraction] 31.2 % Low 39.0-51.0 [facility] Comment on above: Performed By: #### A LLBG ####[place] [address] [address] [place] [phone] Hemoglobin (Bld) [Mass/Vol] 10.1 g/dL Low 13.0-17.0 [facility] Comment on above: Performed By: #### A LLBG ####[place] [address] [address] [place] [phone] Lactate [Moles/Vol] 3.1 mmol/L High 0.5-2.2 [facility] Comment on above: Performed By: #### A LLBG ####[place] [address] [address] [place] [phone] Methemoglobin 1.1 % Normal <1.6 [facility] Comment on above: Performed By: #### A LLBG ####[place] [address] [address] [place] [phone] O2 Administered 35% Normal [facility] Comment on above: Performed By: #### A LLBG ####[place] [address] [address] [phone] Oxyhemoglobin, Art. 97 % Normal 95-98 [facility] Comment on above: Performed By: #### A LLBG ####[place] [address] [place] [address] [phone] pCO2 44 mm Hg Normal 34-46 [facility] Comment on above: Performed By: #### A LLBG ####[place] [address] [address] [place] [phone] pCO2, Temp Correct 44 mm Hg Normal 34-46 [facility] Comment on above: Performed By: #### A LLBG ####[address] [place] [phone] pH (Bld) 7.30 [pH] Low 7.35-7.45 [facility] Comment on above: Performed By: #### A LLBG ####[place] [phone] pH, Temp Corrected 7.30 Low 7.35-7.45 [facility] Comment on above: Performed By: #### A LLBG ####[place] [phone] pO2 139 mm Hg High 85-95 [facility] Comment on above: Performed By: #### A LLBG ####[place] [phone] pO2, Temp Corrected 139 mm Hg High 85-95 [facility] Comment on above: Performed By: #### A LLBG ####[place] [phone] Potassium [Moles/Vol] 4.3 mmol/L Normal 3.5-5.0 [facility] Comment on above: Performed By: #### A LLBG ####[place] [phone] Sodium [Moles/Vol] 137 mmol/L Normal 136-144 [facility] Comment on above: Performed By: #### A LLBG ####[address] [phone] Base Excess Negative Normal [facility] Comment on above: Performed By: #### A LLBG ####[address] [phone] Blood Gas Comm, Art . Normal [facility] Comment on above: Performed By: #### A LLBG ####[address] [phone] Body temperature 98.6 [degF] Normal [facility] Comment on above: Performed By: #### A LLBG ####[address] [phone] Calcium [Moles/Vol] 1.17 mmol/L Normal 1.08-1.30 [facility] Comment on above: Performed By: #### A [facility] ####[address] [phone] Carboxyhemoglobin ,Art 0.8 % Normal <2.1 [facility] Comment on above: Performed By: #### A LL[facility] ####[place] [phone] CO2 [Moles/Vol] 23 mmol/L Normal 22.0-28.0 [facility] Comment on above: Performed By: #### A [facility] ####[place] [phone] Glucose [Mass/Vol] 159 mg/dL High 60-105 [facility] Comment on above: Performed By: #### A [facility] ####[address] [phone] HCO3 (Bld) [Moles/Vol] 21 mmol/L Low 22-26 [facility] Comment on above: Performed By: #### A LL[facility] ####[address] [phone] Hematocrit (Bld) [Volume fraction] 29.8 % Low 39.0-51.0 [facility] Comment on above: Performed By: #### A [facility] ####[address] [phone] Hemoglobin (Bld) [Mass/Vol] 9.6 g/dL Low 13.0-17.0 [facility] Comment on above: Performed By: #### A LL[facility] ####[place] [address] [place] [phone] Lactate [Moles/Vol] 3.8 mmol/L High 0.5-2.2 [facility] Comment on above: Performed By: #### A LL[facility] ####[place] [address] [place] [phone] Methemoglobin 1.3 % Normal <1.6 [facility] Comment on above: Performed By: #### A LL[facility] ####[place] [phone] Oxyhemoglobin, Art. 97 % Normal 95-98 [facility] Comment on above: Performed By: #### A LL[facility] ####[place] [address] [place] [phone] pCO2 46 mm Hg Normal 34-46 [facility] Comment on above: Performed By: #### A LL[facility] ####[place] [address] [place] [phone] pCO2, Temp Correct 46 mm Hg Normal 34-46 [facility] Comment on above: Performed By: #### A LL[facility] ####[place] [address] [place] [phone] pH (Bld) 7.28 [pH] Low 7.35-7.45 [facility] Comment on above: Performed By: #### A [facility] ####[place] [address] [place] [phone] pH, Temp Corrected 7.28 Low 7.35-7.45 [facility] Comment on above: Performed By: #### A [facility] ####[place] [address] [place] [address], [place] [phone] pO2 137 mm Hg High 85-95 [facility] Comment on above: Performed By: #### A [facility] ####[place] [address] [place], [place] [phone] pO2, Temp Corrected 137 mm Hg High 85-95 [facility] Comment on above: Performed By: #### A [facility] ####[place] [address] [place], [place] [phone] Potassium [Moles/Vol] 3.9 mmol/L Normal 3.5-5.0 [facility] Comment on above: Performed By: #### A [facility] ####[place] [address] [place], [place] [phone] Sodium [Moles/Vol] 139 mmol/L Normal 136-144 [facility] Comment on above: Performed By: #### A [facility] ####[place] [address] [place], [place] [phone] Base Excess Negative Normal [facility] Comment on above: Performed By: #### A [facility] ####[address] [phone] Blood Gas Comm, Art . Normal [facility] Comment on above: Performed By: #### A LL[facility] ####[place] [address] [place], [place] [phone] Body temperature 97.16 [degF] Normal [facility] Comment on above: Performed By: #### A LL[facility] ####[place] [address] [place], [place] [phone] Calcium [Moles/Vol] 1.15 mmol/L Normal 1.08-1.30 [facility] Comment on above: Performed By: #### A LL[facility] ####[place] [address] [place], [place] [phone] Carboxyhemoglobin ,Art 0.8 % Normal <2.1 [facility] Comment on above: Performed By: #### A LL[facility] ####[place] [address] [place], [place] [phone] CO2 [Moles/Vol] 23 mmol/L Normal 22.0-28.0 [facility] Comment on above: Performed By: #### A [facility] ####[place] [address] [place] [phone] Glucose [Mass/Vol] 145 mg/dL High 60-105 [facility] Comment on above: Performed By: #### A LL[facility] ####[place] [phone] HCO3 (Bld) [Moles/Vol] 21 mmol/L Low 22-26 [facility] Comment on above: Performed By: #### A LL[facility] ####[address] [phone] Hematocrit (Bld) [Volume fraction] 25.2 % Low 39.0-51.0 [facility] Comment on above: Performed By: #### A LL[facility] ####[place] [phone] Hemoglobin (Bld) [Mass/Vol] 8.1 g/dL Low 13.0-17.0 [facility] Comment on above: Performed By: #### A LL[facility] ####[place] [address] [place] [phone] Lactate [Moles/Vol] 4.4 mmol/L High 0.5-2.2 [facility] Comment on above: Performed By: #### A [facility] ####[place] [address] [place], [place] [phone] Methemoglobin 1.2 % Normal <1.6 [facility] Comment on above: Performed By: #### A LL[facility] ####[facility] [place] [address], [place] [phone] O2 Administered 40% Normal [facility] Comment on above: Performed By: #### A LL[facility] ####[place] [address] [place] [address], [place] [phone] Oxyhemoglobin, Art. 97 % Normal 95-98 [facility] Comment on above: Performed By: #### A LL[facility] ####[place] [address] [place] [facility] hospitalandOd[place], [place] [phone] pCO2 45 mm Hg Normal 34-46 [facility] Comment on above: Performed By: #### A LL[facility] ####[place] [address] [place] [address], [place] [phone] pCO2, Temp Correct 44 mm Hg Normal 34-46 [facility] Comment on above: Performed By: #### A LL[facility] ####[place] [address] [place] [address] [phone] pH (Bld) 7.29 [pH] Low 7.35-7.45 [facility] Comment on above: Performed By: #### A [facility] ####[place] [address] [place] [address], [place] [phone] pH, Temp Corrected 7.30 Low 7.35-7.45 [facility] Comment on above: Performed By: #### A [facility] ####[facility] [place] [address]level[address], [place] [phone] pO2 147 mm Hg High 85-95 [facility] Comment on above: Performed By: #### A LL[facility] ####[place] [address] [place] [address]level[place], [place] [phone] pO2, Temp Corrected 143 mm Hg High 85-95 [facility] Comment on above: Performed By: #### A [facility] ####[place] [address] [place] [phone] Potassium [Moles/Vol] 3.6 mmol/L Normal 3.5-5.0 [facility] Comment on above: Performed By: #### A [facility] ####[address] [phone] Sodium [Moles/Vol] 138 mmol/L Normal 136-144 [facility] Comment on above: Performed By: #### A [facility] ####[place] [address] [place] [phone] Base Excess Negative Normal [facility] Comment on above: Performed By: #### A [facility] ####[address] [phone] Blood Gas Comm, Art . Normal [facility] Comment on above: Performed By: #### A LL[facility] ####[place] [phone] Body temperature 98.6 [degF] Normal [facility] Comment on above: Performed By: #### A [facility] ####[address] [phone] Calcium [Moles/Vol] 1.11 mmol/L Normal 1.08-1.30 [facility] Comment on above: Performed By: #### A [facility] ####[address] [phone] Carboxyhemoglobin ,Art 0.2 % Normal <2.1 [facility] Comment on above: Performed By: #### A [facility] ####[place] [address] [place], [place] [phone] CO2 [Moles/Vol] 21 mmol/L Low 22.0-28.0 [facility] Comment on above: Performed By: #### A [facility] ####[place] [address] [place], [place] [phone] Glucose [Mass/Vol] 147 mg/dL High 60-105 [facility] Comment on above: Performed By: #### A [facility] ####[place] [address] [place] [address], [place] [phone] HCO3 (Bld) [Moles/Vol] 20 mmol/L Low 22-26 [facility] Comment on above: Performed By: #### A [facility] ####[place] [address] [place] [address] [phone] Hematocrit (Bld) [Volume fraction] 24.8 % Low 39.0-51.0 [facility] Comment on above: Performed By: #### A [facility] ####[place] [address] [place] [address] [phone] Hemoglobin (Bld) [Mass/Vol] 8.0 g/dL Low 13.0-17.0 [facility] Comment on above: Performed By: #### A LL[facility] ####[place] [address] [place] [phone] Lactate [Moles/Vol] 3.3 mmol/L High 0.5-2.2 [facility] Comment on above: Performed By: #### A [facility] ####[place] [address] [place] [address] [phone] Methemoglobin 1.7 % High <1.6 [facility] Comment on above: Performed By: #### A LL[facility] ####[place] [address] [place] [address], [place] [phone] Oxyhemoglobin, Art. 96 % Normal 95-98 [facility] Comment on above: Performed By: #### A LL[facility] ####[place] [address] [place] [address], [place] [phone] pCO2 36 mm Hg Normal 34-46 [facility] Comment on above: Performed By: #### A [facility] ####[place] [address] [place] [address], [place] [phone] pCO2, Temp Correct 36 mm Hg Normal 34-46 [facility] Comment on above: Performed By: #### A LL[facility] ####[place] [address] [place] [address], [place] [phone] pH (Bld) 7.35 [pH] Normal 7.35-7.45 [facility] Comment on above: Performed By: #### A LL[facility] ####[place] [address] [place] [address], [place] [phone] pH, Temp Corrected 7.35 Normal 7.35-7.45 [facility] Comment on above: Performed By: #### A LL[facility] ####[place] [address] [place] [address], [place] [phone] pO2 241 mm Hg High 85-95 [facility] Comment on above: Performed By: #### A LL[facility] ####[place] [address] [place] [address], [place] [phone] pO2, Temp Corrected 241 mm Hg High 85-95 [facility] Comment on above: Performed By: #### A LL[facility] ####[place] [address] [place], [place] [phone] Potassium [Moles/Vol] 3.7 mmol/L Normal 3.5-5.0 [facility] Comment on above: Performed By: #### A LL[facility] ####[place] [address] [place] [address], [place] [phone] Sodium [Moles/Vol] 139 mmol/L Normal 136-144 [facility] Comment on above: Performed By: #### A LL[facility] ####[place] [address] [place] [address], [place] [phone] Base Excess Negative Normal [facility] Comment on above: Performed By: #### A LL[facility] ####[place] [address] [place], [place] [phone] Blood Gas Comm, Art . Normal [facility] Comment on above: Performed By: #### A LLBG ####[address] [phone] Body temperature 98.6 [degF] Normal [facility] Comment on above: Performed By: #### A LLBG ####[place] [phone] Calcium [Moles/Vol] 1.20 mmol/L Normal 1.08-1.30 [facility] Comment on above: Performed By: #### A LL[facility] ####[place] [phone] Carboxyhemoglobin ,Art 1.1 % Normal <2.1 [facility] Comment on above: Performed By: #### A LL[facility] ####[place] [phone] CO2 [Moles/Vol] 22 mmol/L Normal 22.0-28.0 [facility] Comment on above: Performed By: #### A LL[facility] ####[place] [phone] Glucose [Mass/Vol] 203 mg/dL High 60-105 [facility] Comment on above: Performed By: #### A LL[facility] ####[place] [phone] HCO3 (Bld) [Moles/Vol] 21 mmol/L Low 22-26 [facility] Comment on above: Performed By: #### A LLBG ####[place] [phone] Hematocrit (Bld) [Volume fraction] 25.7 % Low 39.0-51.0 [facility] Comment on above: Performed By: #### A LL[facility] ####[place] [address] [place] [address] [phone] Hemoglobin (Bld) [Mass/Vol] 8.3 g/dL Low 13.0-17.0 [facility] Comment on above: Performed By: #### A LL[facility] ####[place] [address] [place] [address] [phone] Lactate [Moles/Vol] 3.6 mmol/L High 0.5-2.2 [facility] Comment on above: Performed By: #### A LL[facility] ####[place] [address] [place] [address] [phone] Methemoglobin 2.1 % High <1.6 [facility] Comment on above: Performed By: #### A LL[facility] ####[place] [address] [place] [address] [phone] Oxyhemoglobin, Art. 96 % Normal 95-98 [facility] Comment on above: Performed By: #### A LL[facility] ####[place] [address] [place] [address] [phone] pCO2 39 mm Hg Normal 34-46 [facility] Comment on above: Performed By: #### A LL[facility] ####[place] [address] [place] [address] [phone] pCO2, Temp Correct 39 mm Hg Normal 34-46 [facility] Comment on above: Performed By: #### A LL[facility] ####[place] [address] [place] [address] [phone] pH (Bld) 7.35 [pH] Normal 7.35-7.45 [facility] Comment on above: Performed By: #### A LL[facility] ####[place] [address] [place] [address]C[place], [place] [phone] pH, Temp Corrected 7.35 Normal 7.35-7.45 [facility] Comment on above: Performed By: #### A LLBG ####[facility] [place] [address], [place] [phone] pO2 208 mm Hg High 85-95 [facility] Comment on above: Performed By: #### A LL[facility] ####[facility] [place] [address], [place] [phone] pO2, Temp Corrected 208 mm Hg High 85-95 [facility] Comment on above: Performed By: #### A LL[facility] ####[place] [address] [place] [address], [place] [phone] Potassium [Moles/Vol] 3.7 mmol/L Normal 3.5-5.0 [facility] Comment on above: Performed By: #### A LL[facility] ####[place] [address] [place] [address], [place] [phone] Sodium [Moles/Vol] 138 mmol/L Normal 136-144 [facility] Comment on above: Performed By: #### A LL[facility] ####[place] [address] [place] [address], [place] [phone] Base Excess Negative Normal [facility] Comment on above: Performed By: #### A LL[facility] ####[place] [address] [place] [address], [place] [phone] Blood Gas Comm, Art . Normal [facility] Comment on above: Performed By: #### A LL[facility] ####[place] [address] [place] [address], [place] [phone] Body temperature 98.6 [degF] Normal [facility] Comment on above: Performed By: #### A LLBG ####[place] [address] [place] [address], [place] [phone] Calcium [Moles/Vol] 1.18 mmol/L Normal 1.08-1.30 [facility] Comment on above: Performed By: #### A LLBG ####[place] [address] [place] [address], [place] [phone] Carboxyhemoglobin ,Art 1.3 % Normal <2.1 [facility] Comment on above: Performed By: #### A LL[facility] ####[place] [address] [place] [address], [place] [phone] CO2 [Moles/Vol] 24 mmol/L Normal 22.0-28.0 [facility] Comment on above: Performed By: #### A LL[facility] ####[place] [address] [place] [address] [phone] Glucose [Mass/Vol] 207 mg/dL High 60-105 [facility] Comment on above: Performed By: #### A LL[facility] ####[place] [address] [place] [address], [place] [phone] HCO3 (Bld) [Moles/Vol] 23 mmol/L Normal 22-26 [facility] Comment on above: Performed By: #### A LL[facility] ####[place] [address] [place] [phone] Hematocrit (Bld) [Volume fraction] 25.9 % Low 39.0-51.0 [facility] Comment on above: Performed By: #### A LL[facility] ####[place] [address] [place] [address] [phone] Hemoglobin (Bld) [Mass/Vol] 8.3 g/dL Low 13.0-17.0 [facility] Comment on above: Performed By: #### A LLBG ####[place] [address] [place] [address], [place] [phone] Lactate [Moles/Vol] 1.8 mmol/L Normal 0.5-2.2 [facility] Comment on above: Performed By: #### A LLBG ####[place] [address] [place] [address], [place] [phone] Methemoglobin 1.3 % Normal <1.6 [facility] Comment on above: Performed By: #### A LLBG ####[facility] [place] [address]C[place], [place] [phone] Oxyhemoglobin, Art. 97 % Normal 95-98 [facility] Comment on above: Performed By: #### A LLBG ####[facility] [address] [place] Ave[place], [place] [phone] pCO2 39 mm Hg Normal 34-46 [facility] Comment on above: Performed By: #### A LLBG ####[facility] [place] [address], [place] [phone] pCO2, Temp Correct 39 mm Hg Normal 34-46 [facility] Comment on above: Performed By: #### A LLBG ####[facility] [place] [address], [place] [phone] pH (Bld) 7.39 [pH] Normal 7.35-7.45 [facility] Comment on above: Performed By: #### A LLBG ####[facility] [place] [address], [place] [phone] pH, Temp Corrected 7.39 Normal 7.35-7.45 [facility] Comment on above: Performed By: #### A LLBG ####[facility] [address] [place] [address], [place] [phone] pO2 322 mm Hg High 85-95 [facility] Comment on above: Performed By: #### A LLBG ####[facility] [place] [address], [place] [phone] pO2, Temp Corrected 322 mm Hg High 85-95 [facility] Comment on above: Performed By: #### A LLBG ####[facility] [address] [place] [address], [place] [phone] Potassium [Moles/Vol] 5.1 mmol/L High 3.5-5.0 [facility] Comment on above: Performed By: #### A LLBG ####[place] [address] [place] [address], [place] [phone] Sodium [Moles/Vol] 137 mmol/L Normal 136-144 [facility] Comment on above: Performed By: #### A LLBG ####[place] [address] [place] [address], [place] [phone] Base Excess Negative Normal [facility] Comment on above: Performed By: #### A LLBG ####[place] [address] [place] [address], [place] [phone] Blood Gas Comm, Art . Normal [facility] Comment on above: Performed By: #### A LLBG ####[place] [address] [place] [address], [place] [phone] Body temperature 98.6 [degF] Normal [facility] Comment on above: Performed By: #### A LLBG ####[place] [address] [place] [address], [place] [phone] Calcium [Moles/Vol] 1.16 mmol/L Normal 1.08-1.30 [facility] Comment on above: Performed By: #### A LLBG ####[place] [address] [place] [address], [place] [phone] Carboxyhemoglobin ,Art 1.1 % Normal <2.1 [facility] Comment on above: Performed By: #### A LLBG ####[place] [address] [place] [address], [place] [phone] CO2 [Moles/Vol] 24 mmol/L Normal 22.0-28.0 [facility] Comment on above: Performed By: #### A LLBG ####[place] [address] [place] [address], [place] [phone] Glucose [Mass/Vol] 203 mg/dL High 60-105 [facility] Comment on above: Performed By: #### A LLBG ####[facility] [place] [address], [place] [phone] HCO3 (Bld) [Moles/Vol] 23 mmol/L Normal 22-26 [facility] Comment on above: Performed By: #### A LLBG ####[place] [address] [place] [address] [phone] Hematocrit (Bld) [Volume fraction] 26.3 % Low 39.0-51.0 [facility] Comment on above: Performed By: #### A LLBG ####[place] [address] [place] [address] [phone] Hemoglobin (Bld) [Mass/Vol] 8.5 g/dL Low 13.0-17.0 [facility] Comment on above: Performed By: #### A LLBG ####[place] [address] [place] [address] [phone] Lactate [Moles/Vol] 1.4 mmol/L Normal 0.5-2.2 [facility] Comment on above: Performed By: #### A LLBG ####[place] [address] [place] [address] [phone] Methemoglobin 2.1 % High <1.6 [facility] Comment on above: Performed By: #### A LLBG ####[place] [address] [place] [address]C[place] [phone] Oxyhemoglobin, Art. 96 % Normal 95-98 [facility] Comment on above: Performed By: #### A LLBG ####[place] [address] [place] [address] [phone] pCO2 39 mm Hg Normal 34-46 [facility] Comment on above: Performed By: #### A LLBG ####[place] [address] [place] [address], [place] [phone] pCO2, Temp Correct 39 mm Hg Normal 34-46 [facility] Comment on above: Performed By: #### A LLBG ####[facility] [place] [address], [place] [phone] pH (Bld) 7.39 [pH] Normal 7.35-7.45 [facility] Comment on above: Performed By: #### A LLBG ####[facility] [place] [address], [place] [phone] pH, Temp Corrected 7.39 Normal 7.35-7.45 [facility] Comment on above: Performed By: #### A LLBG ####[place] [address] [place] [address], [place] [phone] pO2 295 mm Hg High 85-95 [facility] Comment on above: Performed By: #### A LLBG ####[place] [address] [place] [address], [place] [phone] pO2, Temp Corrected 295 mm Hg High 85-95 [facility] Comment on above: Performed By: #### A LLBG ####[facility] [place] [address], [place] [phone] Potassium [Moles/Vol] 4.8 mmol/L Normal 3.5-5.0 [facility] Comment on above: Performed By: #### A LLBG ####[facility] [place] [address], [place] [phone] Sodium [Moles/Vol] 135 mmol/L Low 136-144 [facility] Comment on above: Performed By: #### A LLBG ####[facility] [place] [address], [place] [phone] Base Excess Negative Normal [facility] Comment on above: Performed By: #### A LLBG ####[facility] [place] [address], [place] [phone] Blood Gas Comm, Art . Normal [facility] Comment on above: Performed By: #### A LLBG ####[place] [address] [place] [address], [place] [phone] Body temperature 98.6 [degF] Normal [facility] Comment on above: Performed By: #### A LLBG ####[place] [address] [place] [address], [place] [phone] Calcium [Moles/Vol] 1.18 mmol/L Normal 1.08-1.30 [facility] Comment on above: Performed By: #### A LLBG ####[place] [address] [place] [address] [phone] Carboxyhemoglobin ,Art 1.0 % Normal <2.1 [facility] Comment on above: Performed By: #### A LLBG ####[place] [phone] CO2 [Moles/Vol] 25 mmol/L Normal 22.0-28.0 [facility] Comment on above: Performed By: #### A LLBG ####[place] [address] [place] [phone] Glucose [Mass/Vol] 227 mg/dL High 60-105 [facility] Comment on above: Performed By: #### A LLBG ####[place] [address] [place] [phone] HCO3 (Bld) [Moles/Vol] 24 mmol/L Normal 22-26 [facility] Comment on above: Performed By: #### A LLBG ####[place] [address] [place] [phone] Hematocrit (Bld) [Volume fraction] 27.0 % Low 39.0-51.0 [facility] Comment on above: Performed By: #### A LLBG ####[place] [address] [place], [place] [phone] Hemoglobin (Bld) [Mass/Vol] 8.7 g/dL Low 13.0-17.0 [facility] Comment on above: Performed By: #### A LLBG ####[place] [address] [place] [phone] Lactate [Moles/Vol] 1.1 mmol/L Normal 0.5-2.2 [facility] Comment on above: Performed By: #### A LLBG ####[place] [address] [place] [address] [place] [phone] Methemoglobin 1.6 % High <1.6 [facility] Comment on above: Performed By: #### A LLBG ####[place] [address] [place] [phone] Oxyhemoglobin, Art. 97 % Normal 95-98 [facility] Comment on above: Performed By: #### A LLBG ####[place] [address] [place] [phone] pCO2 44 mm Hg Normal 34-46 [facility] Comment on above: Performed By: #### A LLBG ####[place] [address] [place] [phone] pCO2, Temp Correct 44 mm Hg Normal 34-46 [facility] Comment on above: Performed By: #### A LLBG ####[place] [address] [place], [place] [phone] pH (Bld) 7.35 [pH] Normal 7.35-7.45 [facility] Comment on above: Performed By: #### A LLBG ####[place] [address] [place] [address], [place] [phone] pH, Temp Corrected 7.35 Normal 7.35-7.45 [facility] Comment on above: Performed By: #### A LLBG ####[place] [address] [place] [address], [place] [phone] pO2 295 mm Hg High 85-95 [facility] Comment on above: Performed By: #### A LLBG ####[place] [address] [place] [address], [place] [phone] pO2, Temp Corrected 295 mm Hg High 85-95 [facility] Comment on above: Performed By: #### A LLBG ####[place] [address] [place] [address], [place] [phone] Potassium [Moles/Vol] 4.8 mmol/L Normal 3.5-5.0 [facility] Comment on above: Performed By: #### A LLBG ####[place] [address] [place] [address] [phone] Sodium [Moles/Vol] 136 mmol/L Normal 136-144 [facility] Comment on above: Performed By: #### A LLBG ####[place] [address] [place] [address] [phone] Base Excess Negative Normal [facility] Comment on above: Performed By: #### A LLBG ####[place] [address] [place] [address], [place] [phone] Blood Gas Comm, Art . Normal [facility] Comment on above: Performed By: #### A LLBG ####[place] [address] [place] [address] [phone] Body temperature 98.6 [degF] Normal [facility] Comment on above: Performed By: #### A LLBG ####[place] [address] [place] [address] [phone] Calcium [Moles/Vol] 1.15 mmol/L Normal 1.08-1.30 [facility] Comment on above: Performed By: #### A LLBG ####[place] [address] [place] [address] [phone] Carboxyhemoglobin ,Art 1.0 % Normal <2.1 [facility] Comment on above: Performed By: #### A LLBG ####[place] [address] [place] [address], [place] [phone] CO2 [Moles/Vol] 25 mmol/L Normal 22.0-28.0 [facility] Comment on above: Performed By: #### A LLBG ####[place] [address] [place] [address], [place] [phone] Glucose [Mass/Vol] 217 mg/dL High 60-105 [facility] Comment on above: Performed By: #### A LLBG ####[place] [address] [place] [address] [phone] HCO3 (Bld) [Moles/Vol] 24 mmol/L Normal 22-26 [facility] Comment on above: Performed By: #### A LLBG ####[place] [address] [place] [address], [place] [phone] Hematocrit (Bld) [Volume fraction] 28.0 % Low 39.0-51.0 [facility] Comment on above: Performed By: #### A LLBG ####[place] [address] [place] [address] [phone] Hemoglobin (Bld) [Mass/Vol] 9.0 g/dL Low 13.0-17.0 [facility] Comment on above: Performed By: #### A LLBG ####[place] [address] [place] [address], [place] [phone] Lactate [Moles/Vol] 1.0 mmol/L Normal 0.5-2.2 [facility] Comment on above: Performed By: #### A LLBG ####[place] [address] [place] [address], [place] [phone] Methemoglobin 1.2 % Normal <1.6 [facility] Comment on above: Performed By: #### A LLBG ####[place] [address] [place] [address] [phone] Oxyhemoglobin, Art. 97 % Normal 95-98 [facility] Comment on above: Performed By: #### A LLBG ####[place] [address] [place] [address], [place] [phone] pCO2 42 mm Hg Normal 34-46 [facility] Comment on above: Performed By: #### A LLBG ####[place] [address] [place] [address], [place] [phone] pCO2, Temp Correct 42 mm Hg Normal 34-46 [facility] Comment on above: Performed By: #### A LLBG ####[place] [address] [place], [place] [phone] pH (Bld) 7.37 [pH] Normal 7.35-7.45 [facility] Comment on above: Performed By: #### A LLBG ####[place] [address] [place], [place] [phone] pH, Temp Corrected 7.37 Normal 7.35-7.45 [facility] Comment on above: Performed By: #### A LLBG ####[place] [address] [place], [place] [phone] pO2 330 mm Hg High 85-95 [facility] Comment on above: Performed By: #### A LLBG ####[place] [address] [place], [place] [phone] pO2, Temp Corrected 330 mm Hg High 85-95 [facility] Comment on above: Performed By: #### A LLBG ####[place] [address] [place] [address], [place] [phone] Potassium [Moles/Vol] 4.2 mmol/L Normal 3.5-5.0 [facility] Comment on above: Performed By: #### A LLBG ####[place] [address] [place] [address], [place] [phone] Sodium [Moles/Vol] 139 mmol/L Normal 136-144 [facility] Comment on above: Performed By: #### A LLBG ####[place] [address] [place] [phone] Base Excess 0 mmol/L Normal [facility] Comment on above: Performed By: #### A LLBG ####[place] [address] [place], [place] [phone] Blood Gas Comm, Art . Normal [facility] Comment on above: Performed By: #### A LLBG ####[address] [phone] Body temperature 98.6 [degF] Normal [facility] Comment on above: Performed By: #### A LLBG ####[address] [phone] Calcium [Moles/Vol] 1.26 mmol/L Normal 1.08-1.30 [facility] Comment on above: Performed By: #### A LLBG ####[place] [phone] Carboxyhemoglobin ,Art 0.7 % Normal <2.1 [facility] Comment on above: Performed By: #### A LLBG ####[address] [phone] CO2 [Moles/Vol] 26 mmol/L Normal 22.0-28.0 [facility] Comment on above: Performed By: #### A LLBG ####[place] [address] [place], [place] [phone] Glucose [Mass/Vol] 166 mg/dL High 60-105 [facility] Comment on above: Performed By: #### A LLBG ####[place] [address] [place], [place] [phone] HCO3 (Bld) [Moles/Vol] 25 mmol/L Normal 22-26 [facility] Comment on above: Performed By: #### A LLBG ####[place] [address] [place] [phone] Hematocrit (Bld) [Volume fraction] 32.7 % Low 39.0-51.0 [facility] Comment on above: Performed By: #### A LLBG ####[place] [address] [place] [phone] Hemoglobin (Bld) [Mass/Vol] 10.6 g/dL Low 13.0-17.0 [facility] Comment on above: Performed By: #### A LLBG ####[place] [phone] Lactate [Moles/Vol] 0.9 mmol/L Normal 0.5-2.2 [facility] Comment on above: Performed By: #### A LLBG ####[place] [address] [place] [phone] Methemoglobin 1.3 % Normal <1.6 [facility] Comment on above: Performed By: #### A LLBG ####[place] [phone] Oxyhemoglobin, Art. 97 % Normal 95-98 [facility] Comment on above: Performed By: #### A LLBG ####[place] [address] [place] [phone] pCO2 42 mm Hg Normal 34-46 [facility] Comment on above: Performed By: #### A LLBG ####[place] [address] [place] [address] [phone] pCO2, Temp Correct 42 mm Hg Normal 34-46 [facility] Comment on above: Performed By: #### A LLBG ####[place] [address] [place] [phone] pH (Bld) 7.39 [pH] Normal 7.35-7.45 [facility] Comment on above: Performed By: #### A LLBG ####[place] [address] [place], [place] [phone] pH, Temp Corrected 7.39 Normal 7.35-7.45 [facility] Comment on above: Performed By: #### A LLBG ####[place] [address] [place], [place] [phone] pO2 127 mm Hg High 85-95 [facility] Comment on above: Performed By: #### A LLBG ####[place] [address] [place], [place] [phone] pO2, Temp Corrected 127 mm Hg High 85-95 [facility] Comment on above: Performed By: #### A LLBG ####[address] [phone] Potassium [Moles/Vol] 4.0 mmol/L Normal 3.5-5.0 [facility] Comment on above: Performed By: #### A LLBG ####[address] [phone] Sodium [Moles/Vol] 141 mmol/L Normal 136-144 [facility] Comment on above: Performed By: #### A LLBG ####[address] [phone] GASV + ALLon 10-04-2020 Base Excess Negative Normal [facility] Comment on above: Performed By: #### V ALLBG ####[address] [phone] Blood Gas Comm, Curtis . Normal [facility] Comment on above: Performed By: #### V ALLBG ####[address] [phone] Body temperature 98.6 [degF] Normal [facility] Comment on above: Performed By: #### V ALLBG ####[place] [address] [place], [place] [phone] Calcium [Moles/Vol] 1.18 mmol/L Normal 1.08-1.30 [facility] Comment on above: Performed By: #### V ALLBG ####[place] [address] [place], [place] [phone] Carboxyhemoglobin ,Curtis 1.1 % Normal <2.1 [facility] Comment on above: Performed By: #### V ALLBG ####[place] [address] [place], [place] [phone] CO2 [Moles/Vol] 23 mmol/L Low 25-29 [facility] Comment on above: Performed By: #### V ALLBG ####[place] [address] [place], [place] [phone] Glucose [Mass/Vol] 165 mg/dL High 60-105 [facility] Comment on above: Performed By: #### V ALLBG ####[place] [address] [place], [place] [phone] HCO3 (Bld) [Moles/Vol] 21 mmol/L Low 24-28 [facility] Comment on above: Performed By: #### V ALLBG ####[place] [address] [place], [place] [phone] Hematocrit (Bld) [Volume fraction] 25.7 % Low 39.0-51.0 [facility] Comment on above: Performed By: #### V ALLBG ####[place] [address] [place], [place] [phone] Hemoglobin (Bld) [Mass/Vol] 8.3 g/dL Low 13.0-17.0 [facility] Comment on above: Performed By: #### V ALLBG ####[place] [address] [place] [address] [phone] Lactate [Moles/Vol] 4.2 mmol/L High 0.5-2.2 [facility] Comment on above: Performed By: #### V ALLBG ####[place] [address] [place] [address], [place] [phone] Methemoglobin 2.2 % High <1.6 [facility] Comment on above: Performed By: #### V ALLBG ####[place] [address] [place] [address] [phone] Oxyhemoglobin, Curtis. 85 % Normal 60-85 [facility] Comment on above: Performed By: #### V ALLBG ####[place] [address] [place] [address] [phone] pCO2 45 mm Hg Normal 42-55 [facility] Comment on above: Performed By: #### V ALLBG ####[place] [address] [place] [address] [phone] pCO2, Temp Correct 45 mm Hg Normal 42-55 [facility] Comment on above: Performed By: #### V ALLBG ####[place] [address] [place] [phone] pH (Bld) 7.29 [pH] Low 7.32-7.42 [facility] Comment on above: Performed By: #### V ALLBG ####[place] [address] [place] [address] [phone] pH, Temp Corrected 7.29 Low 7.32-7.42 [facility] Comment on above: Performed By: #### V ALLBG ####[place] [address] [place] [address], [place] [phone] pO2 61 mm Hg High 35-45 [facility] Comment on above: Performed By: #### V ALLBG ####[place] [address] [place], [place] [phone] pO2, Temp Corrected 61 mm Hg High 35-45 [facility] Comment on above: Performed By: #### V ALLBG ####[place] [phone] Potassium [Moles/Vol] 3.6 mmol/L Normal 3.5-5.0 [facility] Comment on above: Performed By: #### V ALLBG ####[place] [phone] Sodium [Moles/Vol] 138 mmol/L Normal 136-144 [facility] Comment on above: Performed By: #### V ALLBG ####[place] [phone] Base Excess Negative Normal [facility] Comment on above: Performed By: #### V ALLBG ####[place] [phone] Blood Gas Comm, Curtis . Normal [facility] Comment on above: Performed By: #### V ALLBG ####[address] [phone] Body temperature 98.6 [degF] Normal [facility] Comment on above: Performed By: #### V ALLBG ####[place] [phone] Calcium [Moles/Vol] 1.19 mmol/L Normal 1.08-1.30 [facility] Comment on above: Performed By: #### V ALLBG ####[place] [phone] Carboxyhemoglobin ,Curtis 1.1 % Normal <2.1 [facility] Comment on above: Performed By: #### V ALLBG ####[place] [phone] CO2 [Moles/Vol] 26 mmol/L Normal 25-29 [facility] Comment on above: Performed By: #### V ALLBG ####[place] [address] [place] [address], [place] [phone] Glucose [Mass/Vol] 220 mg/dL High 60-105 [facility] Comment on above: Performed By: #### V ALLBG ####[place] [address] [place] [address], [place] [phone] HCO3 (Bld) [Moles/Vol] 24 mmol/L Normal 24-28 [facility] Comment on above: Performed By: #### V ALLBG ####[place] [address] [place] [address], [place] [phone] Hematocrit (Bld) [Volume fraction] 28.3 % Low 39.0-51.0 [facility] Comment on above: Performed By: #### V ALLBG ####[place] [address] [place] [address], [place] [phone] Hemoglobin (Bld) [Mass/Vol] 9.1 g/dL Low 13.0-17.0 [facility] Comment on above: Performed By: #### V ALLBG ####[place] [address] [place] [address], [place] [phone] Lactate [Moles/Vol] 1.1 mmol/L Normal 0.5-2.2 [facility] Comment on above: Performed By: #### V ALLBG ####[place] [address] [place] [address], [place] [phone] Methemoglobin 2.0 % High <1.6 [facility] Comment on above: Performed By: #### V ALLBG ####[place] [address] [place] [address], [place] [phone] Oxyhemoglobin, Curtis. 68 % Normal 60-85 [facility] Comment on above: Performed By: #### V ALLBG ####[place] [address] [place] [address], [place] [phone] pCO2 46 mm Hg Normal 42-55 [facility] Comment on above: Performed By: #### V ALLBG ####[place] [address] [place] [address], [place] [phone] pCO2, Temp Correct 46 mm Hg Normal 42-55 [facility] Comment on above: Performed By: #### V ALLBG ####[place] [address] [place] [address] [phone] pH (Bld) 7.34 [pH] Normal 7.32-7.42 [facility] Comment on above: Performed By: #### V ALLBG ####[place] [address] [place] [address], [place] [phone] pH, Temp Corrected 7.34 Normal 7.32-7.42 [facility] Comment on above: Performed By: #### V ALLBG ####[place] [address] [place] [address] [phone] pO2 42 mm Hg Normal 35-45 [facility] Comment on above: Performed By: #### V ALLBG ####[place] [address] [place] [address], [place] [phone] pO2, Temp Corrected 42 mm Hg Normal 35-45 [facility] Comment on above: Performed By: #### V ALLBG ####[place] [address] [place] [address] [phone] Potassium [Moles/Vol] 4.2 mmol/L Normal 3.5-5.0 [facility] Comment on above: Performed By: #### V ALLBG ####[place] [address] [place] [address] [phone] Sodium [Moles/Vol] 140 mmol/L Normal 136-144 [facility] Comment on above: Performed By: #### V ALLBG ####[place] [address] [place], [place] [phone] NURSING PROGon 10-04-2020 NURSING PROG Normal [facility] OPERATIVE NOon 10-04-2020 OPERATIVE NO Normal [facility] Protimeon 10-04-2020 PT INR 1.2 Normal 0.9-1.3 [facility] Comment on above: Result Comment: Mayte min K Antagonist (VKA) Therapeutic Range: INR 2 to 3 (Target INR of 2.5)Note: For patients treated with VKA drugs, such as warfarin, the [employer] 2012 Guideline recommends a therapeutic INR range of 2 to 3 (target INR of 2.5). This recommendation includes high-risk patients with antiphospholipid syndrome with previous arterial or venous thromboembolism, current-generation mechanical or bioprosthetic aortic heart valve replacement.Note: Patients with mechanical aortic valve replacement and additional risk factors for thromboembolic events (atrial fibrillation, previous thromboembolism, LV dysfunction, hypercoagulable conditions) or an older generation mechanical AVR (i.e., ball in-Cage) or any mechanical MVR should have a INR therapeutic range of 2.5 to 3.5 (target INR of 3).Mireya GH, et al. Chest 2012, 141:7S-47SNishimura RA, et al. [facility] 2017, 70: 252-289 Performed By: #### C BC, FIBCT, PT, PTT ####[place] [address] [place], [place] [phone] PT Sec 13.3 sec High 9.7-13.0 [facility] Comment on above: Performed By: #### C BC, FIBCT, PT, PTT ####[facility] [address] [place], [place] [phone] SURGICAL PATHOLOGYon 021 SURGICAL PATHOLOGY Normal [facility] Staph aureus PCRon 1 MRSA PCR Negative Normal [facility] Comment on above: Performed By: #### S APCR ####[place] [address] [place], [place] [phone] S aureus Spec Source Nasal Normal [facility] Comment on above: Performed By: #### S APCR ####[facility] [place] [address], [place] [phone] Staph aureus PCR Negative Normal [facility] Comment on above: Performed By: #### S APCR ####[place] [address] [place], [place] [phone] Thrombograph Panelon 021 Coagulation Index 2.7 Normal [facility] Comment on above: Result Comment: (NOT E)Reference range: NEG 4.6 to 3.2The Coagulation Index, a secondary parameter, is labeled bythe director of district office as for research use only and is used perthe director of district office's instructions. Its performancecharacteristics were determined by [facility]'s [facility] [place] [facility] consistent with CLIA requirements. This test has notbeen cleared by the U.S. Food and Drug Administration. Performed By: #### T EGPNP ####[place] [address] [place], [place] [phone] Degree Angle 71.8 deg Normal 47.0-74.0 [facility] Comment on above: Performed By: #### T EGPNP ####[place] [address] [place], [place] [phone] Lysis Time 30 0.0 % Normal 0.0-8.0 [facility] Comment on above: Performed By: #### T EGPNP ####[place] [address] [place], [place] [phone] Maximum Amplitude 63.1 mm Normal 51.0-75.0 [facility] Comment on above: Performed By: #### T EGPNP ####[place] [address] [place], [place] [phone] R Value 3.4 min Low 4.0-10.0 [facility] Comment on above: Performed By: #### T EGPNP ####[place] [address] [place], [place] [phone] Thrombograph Interp (NOTE) Normal [facility] Comment on above: Result Comment: Perf orming Pathologist: Elaine HoantInterpretation:Abnormal - see comment below.A thromboelastograph (TEG) study was performed usingcitrate-anticoagulated whole blood. The R value, a measure ofcoagulation function, is short. This indicates coagulationhyperfunction. The Angle, a measure of fibrinogen function, iswithin the normal range. This is indicative of normal fibrinogenconcentration or function. The Maximal Amplitude (MA), a measure ofplatelet function, is within the normal range. The Ly30, a measureof fibrinolysis function, is normal. This is indicative of normalfibrinolytic function. The Coagulation Index (CI), a measure ofhemostasis function, is within the normal range. The CI is acalculated parameter based on the other TEG results. Performed By: #### T EGPNP ####[address] [phone] XR CHEST 1V FRONTAL PORTon 0 10-04-2020 XR CHEST 1V FRONTAL PORT Normal [facility] APTTon 10-01-2020 aPTT Coag (Bld) [Time] 24.5 s Normal 23.0-32.4 [facility] Comment on above: Result Comment: Unfr actionated Heparin Therapeutic Ranges:Standard Heparin Nomogram: 53 to 78 seconds (anti-Xa level of 0.3 to 0.7 U/ml)Low Dose/ACS Nomogram: 49 to 67 seconds (anti-Xa level of 0.2 to 0.5 U/ml)Stroke Treatment Nomogram: 49 to 67 seconds (anti-Xa level of 0.2 to 0.5 U/ml)Note: The APTT therapeutic range has been determined for the current lot of laboratory APTT reagent in use throughout the [facility]. Performed By: #### P TT, PT ####[place] [address] [place], [place] [phone] CBC and Differentialon 10-01 Abs Baso 0.03 k/uL Normal <0.11 [facility] Comment on above: Performed By: #### C MP, HBA1C, LD6, CBCDIF ####[place] [address] [place] [address] [phone] Abs Osborne 0.57 k/uL Normal <0.87 [facility] Comment on above: Performed By: #### C MP, HBA1C, LD6, CBCDIF ####[place] [address] [place] [address] [phone] Abs Neut 4.58 k/uL Normal 1.45-7.50 [facility] Comment on above: Performed By: #### C MP, HBA1C, LD6, CBCDIF ####[place] [address] [place] [address] [place] [phone] Absolute nRBC <0.01 Normal <0.01 [facility] Comment on above: Performed By: #### C MP, HBA1C, LD6, CBCDIF ####[place] [address] [address] [place] [phone] Basophils/100 WBC (Bld) 0.5 % Normal [facility] Comment on above: Performed By: #### C MP, HBA1C, LD6, CBCDIF ####[place] [address] [address] [place] [phone] DTYPE Auto Diff Normal [facility] Comment on above: Performed By: #### C MP, HBA1C, LD6, CBCDIF ####[place] [address] [address] [place] [phone] Eosinophils (Bld) [#/Vol] 0.04 10*3/uL Normal <0.46 [facility] Comment on above: Performed By: #### C MP, HBA1C, LD6, CBCDIF ####[place] [address] [address] [place] [phone] Eosinophils/100 WBC (Bld) 0.6 % Normal [facility] Comment on above: Performed By: #### C MP, HBA1C, LD6, CBCDIF ####[place] [address] [address], [place] [phone] Erythrocyte distribution width (RBC) [Ratio] 15.5 % High 11.5-15.0 [facility] Comment on above: Performed By: #### C MP, HBA1C, LD6, CBCDIF ####[place] [address] [address] [place] [phone] Hematocrit (Bld) [Volume fraction] 38.1 % Low 39.0-51.0 [facility] Comment on above: Performed By: #### C MP, HBA1C, LD6, CBCDIF ####[place] [address] [address], [place] [phone] Hemoglobin (Bld) [Mass/Vol] 12.1 g/dL Low 13.0-17.0 [facility] Comment on above: Performed By: #### C MP, HBA1C, LD6, CBCDIF ####[place] [address] [address] [place] [phone] Lymphocytes (Bld) [#/Vol] 1.14 10*3/uL Normal 1.00-4.00 [facility] Comment on above: Performed By: #### C MP, HBA1C, LD6, CBCDIF ####[place] [address] [address] [place] [phone] Lymphocytes/100 WBC (Bld) 17.9 % Normal [facility] Comment on above: Performed By: #### C MP, HBA1C, LD6, CBCDIF ####[place] [address] [address], [place] [phone] MCH 28.3 pG Normal 26.0-34.0 [facility] Comment on above: Performed By: #### C MP, HBA1C, LD6, CBCDIF ####[place] [address] [address], [place] [phone] MCHC (RBC) [Mass/Vol] 31.8 g/dL Normal 30.5-36.0 [facility] Comment on above: Performed By: #### C MP, HBA1C, LD6, CBCDIF ####[place] [address] [address], [place] [phone] MCV (RBC) [Entitic vol] 89.2 fL Normal 80.0-100.0 [facility] Comment on above: Performed By: #### C MP, HBA1C, LD6, CBCDIF ####[place] [address] [address], [place] [phone] Monocytes/100 WBC (Bld) 8.9 % Normal [facility] Comment on above: Performed By: #### C MP, HBA1C, LD6, CBCDIF ####[place] [address] [address], [place] [phone] Neutrophils/100 WBC (Bld) 72.1 % Normal [facility] Comment on above: Performed By: #### C MP, HBA1C, LD6, CBCDIF ####[place] [address] [address], [place] [phone] NRBCs 0.0 /100 WBC Normal 0 [facility] Comment on above: Performed By: #### C MP, HBA1C, LD6, CBCDIF ####[place] [address] [address], [place] [phone] Platelet mean volume (Bld) [Entitic vol] 11.6 fL Normal 9.0-12.7 [facility] Comment on above: Performed By: #### C MP, HBA1C, LD6, CBCDIF ####[place] [address] [address]ClevelS[address], [place] [phone] Platelets (Bld) [#/Vol] 242 10*3/uL Normal 150-400 [facility] Comment on above: Performed By: #### C MP, HBA1C, LD6, CBCDIF ####[place] [address] [address], [place] [phone] RBC (Bld) [#/Vol] 4.27 10*6/uL Normal 4.20-6.00 [facility] Comment on above: Performed By: #### C MP, HBA1C, LD6, CBCDIF ####[place] [id number], [place] [phone] WBC (Bld) [#/Vol] 6.38 10*3/uL Normal 3.70-11.00 [facility] Comment on above: Performed By: #### C MP, HBA1C, LD6, CBCDIF ####[place] [address] [address] [place], [place] [phone] CNCNPATEDon 10-01-2020 CNCNPATED Normal [facility] CNOVon 10-01-2020 CNOV Normal [facility] Comp Metabolic Panelon 10-01 Albumin [Mass/Vol] 4.6 g/dL Normal 3.9-4.9 [facility] Comment on above: Performed By: #### C MP, HBA1C, LD6, CBCDIF ####[place] [address] [place], [place] [phone] ALP [Catalytic activity/Vol] 66 U/L Normal 38-113 [facility] Comment on above: Performed By: #### C MP, HBA1C, LD6, CBCDIF ####[place] [address] [address], [place] [phone] ALT [Catalytic activity/Vol] 19 U/L Normal 10-54 [facility] Comment on above: Performed By: #### C MP, HBA1C, LD6, CBCDIF ####[place] [address] [address] [place], [place] [phone] Anion gap [Moles/Vol] 10 mmol/L Normal 9-18 [facility] Comment on above: Performed By: #### C MP, HBA1C, LD6, CBCDIF ####[place] [address] [address] [place] [phone] AST [Catalytic activity/Vol] 18 U/L Normal 14-40 [facility] Comment on above: Performed By: #### C MP, HBA1C, LD6, CBCDIF ####[place] [address] [address] [place] [phone] Bilirubin [Mass/Vol] 0.6 mg/dL Normal 0.2-1.3 [facility] Comment on above: Performed By: #### C MP, HBA1C, LD6, CBCDIF ####[place] [address] [address] [phone] Calcium [Mass/Vol] 9.8 mg/dL Normal 8.5-10.2 [facility] Comment on above: Performed By: #### C MP, HBA1C, LD6, CBCDIF ####[place] [address] [address] [phone] Chloride [Moles/Vol] 101 mmol/L Normal 97-105 [facility] Comment on above: Performed By: #### C MP, HBA1C, LD6, CBCDIF ####[place] [address] [address] [place] [phone] CO2 [Moles/Vol] 29 mmol/L Normal 22-30 [facility] Comment on above: Performed By: #### C MP, HBA1C, LD6, CBCDIF ####[place] [address] [address] [phone] Creatinine [Mass/Vol] 1.13 mg/dL Normal 0.73-1.22 [facility] Comment on above: Performed By: #### C MP, HBA1C, LD6, CBCDIF ####[place] [address] [address], [place] [phone] eGFR- Amer. >60 Normal [facility] Comment on above: Performed By: #### C MP, HBA1C, LD6, CBCDIF ####[facility] [place], [place] [phone] eGFR-All Other Races >60 Normal [facility] Comment on above: Result Comment: eGFR (Estimated GFR) Units of measure: mL/min/1.73 meters squaredeGFR is derived from the reexpressed MDRD Study equation using the following parameters: serum creatinine, age, gender and race. The creatinine assay has been calibrated to be traceable to IDMS.An eGFR <60 mL/min/1.73m2 for >3 months is consistent with chronic kidney disease. Refer to KDOQI guidelines for clinical interpretation.In patients with unstable renal function, e.g. those with acute kidney injury, the eGFR may not accurately reflect actual GFR. Performed By: #### C MP, HBA1C, LD6, CBCDIF ####[place] [address] [place], [place] [phone] Glucose [Mass/Vol] 198 mg/dL High 74-99 [facility] Comment on above: Result Comment: The [place] Diabetes Association (ADA) provides guidance for cutoff values for fasting glucose and random glucose. The ADA defines fasting as no caloric intake for at least 8 hours. Fasting plasma glucose results between 100 to 125 mg/dL indicate increased risk for diabetes (prediabetes).Fasting plasma glucose results greater than or equal to 126 mg/dL meet the criteria for diagnosis of diabetes. In the absence of unequivocal hyperglycemia, results should be confirmed by repeat testing. In a patient with classic symptoms of hyperglycemia or hyperglycemic crisis, random plasma glucose results greater than or equal to 200 mg/dL meet the criteria for diagnosis of diabetes.Reference: Standards of Medical Care in Diabetes 2016, [place] [employer]. Diabetes Care. 2016.39(Suppl 1). Performed By: #### C MP, HBA1C, LD6, CBCDIF ####[place] [address] [place], [place] [phone] Potassium [Moles/Vol] 4.5 mmol/L Normal 3.7-5.1 [facility] Comment on above: Performed By: #### C MP, HBA1C, LD6, CBCDIF ####[address] [phone] Protein [Mass/Vol] 7.5 g/dL Normal 6.3-8.0 [facility] Comment on above: Performed By: #### C MP, HBA1C, LD6, CBCDIF ####[facility], [place] [phone] Sodium [Moles/Vol] 140 mmol/L Normal 136-144 [facility] Comment on above: Performed By: #### C MP, HBA1C, LD6, CBCDIF ####[facility] [place], [place] [phone] Urea nitrogen [Mass/Vol] 27 mg/dL High 9- [facility] Comment on above: Performed By: #### C MP, HBA1C, LD6, CBCDIF ####[place] [address] [address] [place], [place] [phone] Confirm Blood Typeon 021 ABO/RH(D) Positive Normal [facility] Comment on above: Performed By: #### C [place] ####[address] [phone] Hemoglobin A1con 10-01-2020 Glucose [Mass/Vol] 197 mg/dL Normal [facility] Comment on above: Result Comment: eAG: (Estimated average glucose) is a calculated value from HgbA1c and is customer relations representative of the average blood glucose level in the last 2-3 month period. Performed By: #### C MP, HBA1C, LD6, CBCDIF ####[address] [place], [place] [phone] HbA1c (Bld) [Mass fraction] 8.5 % High 4.3-5.6 [facility] Comment on above: Result Comment: [place] Diabetes Association guidelines indicate that patients with HgbA1c in the range 5.7-6.4% are at increased risk for development of diabetes, and intervention by lifestyle modification may be beneficial. HgbA1c greater or equal to 6.5% is considered diagnostic of diabetes. Performed By: #### C MP, HBA1C, LD6, CBCDIF ####[facility] [place], [place] [phone] Intermed Rapid COVIDon 10-01 SARS-CoV-2 (COVID-19) RNA JONES+probe Ql (Unsp spec) UPPER RESPIRATORY TRACT SWAB Normal [facility] Comment on above: Performed By: #### I TCOVD ####[place] [address] [place], [place] [phone] SARS-CoV-2 (COVID-19) RNA JONES+probe Ql (Unsp spec) Negative for COVID19 (SARS CoV2) by RT-PCR or equivalent method. Normal Negative for COVID19 (SARS CoV2) by RT-PCR or equivalent method. [facility] Comment on above: Result Comment: This test was developed and its performance characteristics determined by [facility]'s [facility] [place]. This test has been authorized by FDA under an Emergency Use Authorization (EUA).This test has been validated in accordance with the FDA's Guidance Document Policy for Diagnostics Testing in Laboratories Certified to Perform High Complexity Testing under CLIA prior to Emergency use Authorization for Coronavirus Disease 2019 during the Public Health Emergency issued on April 19, 2019.Test performed by [facility], [facility] [place], [address] [place], [place] [address]. Performed By: #### I TCOVD ####[place] [address] [place], [place] [phone] LDon 10-01-2020 LD 201 U/L Normal 135-225 [facility] Comment on above: Performed By: #### C MP, HBA1C, LD6, CBCDIF ####[facility] [place], [place] [phone] Protimeon 10-01-2020 PT INR 1.0 Normal 0.9-1.3 [facility] Comment on above: Result Comment: Mayte min K Antagonist (VKA) Therapeutic Range: INR 2 to 3 (Target INR of 2.5)Note: For patients treated with VKA drugs, such as warfarin, the [place] [employer] 2012 Guideline recommends a therapeutic INR range of 2 to 3 (target INR of 2.5). This recommendation includes high-risk patients with antiphospholipid syndrome with previous arterial or venous thromboembolism, current-generation mechanical or bioprosthetic aortic heart valve replacement.Note: Patients with mechanical aortic valve replacement and additional risk factors for thromboembolic events (atrial fibrillation, previous thromboembolism, LV dysfunction, hypercoagulable conditions) or an older generation mechanical AVR (i.e., ball in-Cage) or any mechanical MVR should have a INR therapeutic range of 2.5 to 3.5 (target INR of 3).Mireya GH, et al. Chest 2012, 141:7S-47SNishimura RA, et al. [facility] 2017, 70: 252-289 Performed By: #### P TT, PT ####[facility], [place] [phone] PT Sec 11.0 sec Normal 9.7-13.0 [facility] Comment on above: Performed By: #### P TT, PT ####[facility], [place] [phone] Staph aureus PCRon 1 MRSA PCR Negative Normal [facility] Comment on above: Performed By: #### S APCR ####[facility] [address]CO[place], [place] [phone] S aureus Spec Source Nasal Normal [facility] Comment on above: Performed By: #### S APCR ####[facility] [address], [place] [phone] Staph aureus PCR Negative [facility] Comment on above: Performed By: #### S APCR ####[facility], [place] [phone] Type and SCR (30D)on 021 ABO/RH(D) Positive Normal [facility] Comment on above: Performed By: #### T SCR30 ####[facility] [place] [phone] Urinalysison 10-01-2020 Bilirubin, Urine Negative Normal Negative [facility] Comment on above: Performed By: #### U A ####[facility], [place] [phone] Clarity (U) Clear Normal Clear [facility] Comment on above: Performed By: #### U A ####[facility] [place] [phone] Color (U) Straw Critically abnormal Yellow [facility] Comment on above: Performed By: #### U A ####[place] [address] [address] [place] [phone] Comments SEE COMMENT Normal [facility] Comment on above: Result Comment: Micr oscopic not warranted Performed By: #### U A ####[facility]ClevelThomas [place] [phone] Glucose Ql (U) Negative Normal Negative [facility] Comment on above: Performed By: #### U A ####[facility]level[address] [place] [phone] Hemoglobin/Blood, Ur Negative Normal Negative [facility] Comment on above: Performed By: #### U A ####[facility]level[address] [place] [phone] Ketones Ql (U) Negative Normal Negative [facility] Comment on above: Performed By: #### U A ####[facility]level[address] [place] [phone] Leukest Negative Normal Negative [facility] Comment on above: Performed By: #### U A ####[facility] AveClevelandAnna [place] [phone] Nitrite Ql (U) Negative Normal Negative [facility] Comment on above: Performed By: #### U A ####[facility] [place], [place] [phone] pH (U) 5.0 [pH] Normal 5.0-8.0 [facility] Comment on above: Performed By: #### U A ####[facility] [place], [place] [phone] Protein, Urine Negative Normal Negative [facility] Comment on above: Performed By: #### U A ####[place] [address] [place] [address], [place] [phone] Specific [place], Ur 1.009 Normal 1.005-1.030 [facility] Comment on above: Performed By: #### U A ####[place] [address] [address], [place] [phone] Urine [place] Comment SEE COMMENT Normal [facility] Comment on above: Result Comment: N/A Performed By: #### U A ####[place] [address] [address], [place] [phone] Urobilinogen (U) [Mass/Vol] Negative Normal Negative [facility] Comment on above: Performed By: #### U A ####[place] [address] [address], [place] [phone] XR CHEST 2V FRONTAL/LATon XR CHEST 2V FRONTAL/LAT Normal [facility] CNPNon 09-28-2020 CNPN Normal [facility] CNPNon 09-27-2020 CNPN Normal [facility] HOSPon 09-27-2020 HOSP Normal [facility] CNOVon 09-22-2020 CNOV Normal [facility] CNOV Normal [facility] CNPNon 09-21-2020 CNPN Normal [facility] CNOVon 09-16-2020 CNOV Normal [facility] OBSOLETEon 09-16-2020 OBSOLETE Normal [facility] MRI CARD MORPH FUNC WO/W IVC ONon 09-14-2020 MRI CARD MORPH FUNC WO/W IVCON * * *Final Report* * * DATE OF EXAM: Sep 14 2020 5:13PM EVELIN Mcclendon - MRI CARD ELIDIA STONE WO/W IVCON / PROCEDURE REASON: multiple diagnoses * * * * Physician Interpretation * * * * EXAM TITLE:MRI CARDIAC VELOCITY FLOW MAP, MRI CARD ELIDIA STONE WO/W IVCON DATE: 09/14/2020 8:35 AM COMPARISON: None. CLINICAL INDICATION/HISTORY: Left ventricular aneurysm, mitral regurgitation IMPRESSION: 1. The left ventricle is severely dilated by volumes, with mild systolic dysfunction. 2. The calculated left ventricular ejection fraction is 50% (only functional, nonaneurysmal myocardium included in analysis). There is a large 7.2 x 5.3 cm left ventricular aneurysm involving the basal, mid anterolateral, inferolateral, inferior vickers of the left ventricle. It demonstrates a wide neck. The ratio of the neck to the widest portion of the aneurysm is calculated at 0.61. Myocardium is seen lining the wall of the proximal portion of the aneurysm. Imaging sequences suggest a true ventricular aneurysm. No thrombi are identified within the aneurysm. 3. First pass of gadolinium confirmed necrotic muscle lining the vickers of the aneurysm. Late gadolinium enhancement sequences indicated transmural scarring involving the wall of the aneurysm outlined above. 4. The right ventricle is mildly dilated in size with normal systolic function.,The tricuspid annular excursion is measured at 2.1 cm. The right ventricular ejection fraction is calculated at 49%, this is normal 5. Cine sequences indicated the presence of moderate, posteriorly directed mitral regurgitation secondary to tethering of the posterior mitral leaflet/chordae. The mitral regurgitation is ischemic in origin. Using phase velocity mapping sequences, the regurgitant volume is calculated at 49 mL, and the regurgitant fraction is calculated at 34% (volumes may be somewhat inaccurate in the setting of ventricular aneurysm). There is severe left atrial enlargement. The left atrial volume index is calculated at 62 mL/sq m Trivial to mild aortic insufficiency seen. 6. The pericardial thickness is 2 mm. A trivial (physiologic) pericardial effusion is present without changes of tamponade. 7. The ascending aorta is dilated measuring 4.2 cm at the level of the main pulmonary artery. Dedicated MR angiography was not performed on the study. The main pulmonary artery, superior and inferior vena cavae and pulmonary veins are within normal limits. The cardiac situs is solitus. The venoatrial, atrioventricular, ventricular arterial connections appear to be concordant. No significant mediastinal lymphadenopathy is seen. MEASUREMENTS: A. GREAT VESSELS: I. Aortic root 3.8 cm at the sinuses of Valsalva, 3.3 cm at the sinotubular junction II. Ascending Aorta 4.2 cm III. Descending Aorta: 2.5 cm IV. Main Pulmonary Artery 2.5 cm V. RIGHT Pulmonary Artery 1.9 cm . Left Pulmonary Artery 2.4 cm B. LEFT VENTRICLE: I. End Diastolic dimension 6 cm II. End systolic dimension 5.3 cm III. LVEF 50 % IV. Anteroseptal wall 1 cm V. Inferolateral wall 0.6 cm C. RIGHT VENTRICLE: I. Major Dimension 8.6 cm II.Minor Dimension 2.7 cm VOLUMES: I. Left Ventricular End systolic Volume index (LVESVI) 71 ml/m2 (10-43) II. Left Ventricular End diastolic Volume index (LVEDVI) 143 ml/m2 (51-110) III. Left Ventricular Stroke Volume index (LVSVI) 72 ml/m2 (20-62) IV. Right Ventricular End Systolic volume index ( RVESVI) 39 ml/m2 (37-127) V. Right Ventricular End Diastolic volume index ( RVEDVI) 76 ml/m2 (45-110) . Right Ventricular Stroke volume index ( RVSVI) 37 ml/m2 (33-77) VII.Cardiac Index 6.5 L/min/m2 (2.5-3.0) Tool Adjuster: MICHAEL Transcribe Date/Time: Sep 14 2020 4:31P Dictated by : YASMEEN GARCIA MD This examination was interpreted and the report reviewed and electronically signed by: YASMEEN GARCIA MD on Sep 15 2020 2:15PM EST [id number] Normal [facility] MRI CARDIAC VELOCITY FLOW FATOUMATA Wolfe 09-14-2020 MRI CARDIAC VELOCITY FLOW MAP * * *Final Report* * * DATE OF EXAM: Sep 14 2020 8:35AM [facility] [id number] - MRI CARDIAC VELOCITY FLOW MAP / PROCEDURE REASON: multiple diagnoses * * * * Physician Interpretation * * * * EXAM TITLE:MRI CARDIAC VELOCITY FLOW MAP, MRI CARD MORPH FUNC WO/W IVCON DATE: 09/14/2020 8:35 AM COMPARISON: None. CLINICAL INDICATION/HISTORY: Left ventricular aneurysm, mitral regurgitation IMPRESSION: 1. The left ventricle is severely dilated by volumes, with mild systolic dysfunction. 2. The calculated left ventricular ejection fraction is 50% (only functional, nonaneurysmal myocardium included in analysis). There is a large 7.2 x 5.3 cm left ventricular aneurysm involving the basal, mid anterolateral, inferolateral, inferior vickers of the left ventricle. It demonstrates a wide neck. The ratio of the neck to the widest portion of the aneurysm is calculated at 0.61. Myocardium is seen lining the wall of the proximal portion of the aneurysm. Imaging sequences suggest a true ventricular aneurysm. No thrombi are identified within the aneurysm. 3. First pass of gadolinium confirmed necrotic muscle lining the vickers of the aneurysm. Late gadolinium enhancement sequences indicated transmural scarring involving the wall of the aneurysm outlined above. 4. The right ventricle is mildly dilated in size with normal systolic function.,The tricuspid annular excursion is measured at 2.1 cm. The right ventricular ejection fraction is calculated at 49%, this is normal 5. Cine sequences indicated the presence of moderate, posteriorly directed mitral regurgitation secondary to tethering of the posterior mitral leaflet/chordae. The mitral regurgitation is ischemic in origin. Using phase velocity mapping sequences, the regurgitant volume is calculated at 49 mL, and the regurgitant fraction is calculated at 34% (volumes may be somewhat inaccurate in the setting of ventricular aneurysm). There is severe left atrial enlargement. The left atrial volume index is calculated at 62 mL/sq m Trivial to mild aortic insufficiency seen. 6. The pericardial thickness is 2 mm. A trivial (physiologic) pericardial effusion is present without changes of tamponade. 7. The ascending aorta is dilated measuring 4.2 cm at the level of the main pulmonary artery. Dedicated MR angiography was not performed on the study. The main pulmonary artery, superior and inferior vena cavae and pulmonary veins are within normal limits. The cardiac situs is solitus. The venoatrial, atrioventricular, ventricular arterial connections appear to be concordant. No significant mediastinal lymphadenopathy is seen. MEASUREMENTS: A. GREAT VESSELS: I. Aortic root 3.8 cm at the sinuses of Valsalva, 3.3 cm at the sinotubular junction II. Ascending Aorta 4.2 cm III. Descending Aorta: 2.5 cm IV. Main Pulmonary Artery 2.5 cm V. RIGHT Pulmonary Artery 1.9 cm . Left Pulmonary Artery 2.4 cm B. LEFT VENTRICLE: I. End Diastolic dimension 6 cm II. End systolic dimension 5.3 cm III. LVEF 50 % IV. Anteroseptal wall 1 cm V. Inferolateral wall 0.6 cm C. RIGHT VENTRICLE: I. Major Dimension 8.6 cm II.Minor Dimension 2.7 cm VOLUMES: I. Left Ventricular End systolic Volume index (LVESVI) 71 ml/m2 (10-43) II. Left Ventricular End diastolic Volume index (LVEDVI) 143 ml/m2 (51-110) III. Left Ventricular Stroke Volume index (LVSVI) 72 ml/m2 (20-62) IV. Right Ventricular End Systolic volume index ( RVESVI) 39 ml/m2 (37-127) V. Right Ventricular End Diastolic volume index ( RVEDVI) 76 ml/m2 (45-110) . Right Ventricular Stroke volume index ( RVSVI) 37 ml/m2 (33-77) VII.Cardiac Index 6.5 L/min/m2 (2.5-3.0) Tool Adjuster: MICHAEL Transcribe Date/Time: Sep 14 2020 4:31P Dictated by : YASMEEN GARCIA MD This examination was interpreted and the report reviewed and electronically signed by: YASMEEN GARCIA MD on Sep 15 2020 2:15PM EST [id number] Normal [facility] OBSOLETEon 09-14-2020 OBSOLETE Normal [facility] CNPNon 09-09-2020 CNPN Normal [facility] CBCon 09-08-2020 Absolute nRBC <0.01 Normal <0.01 [facility] Comment on above: Performed By: #### L IPB, CBC, CMP, NTBNP ####[facility] [address] [place], [place] [phone] Erythrocyte distribution width (RBC) [Ratio] 14.7 % Normal 11.5-15.0 [facility] Comment on above: Performed By: #### L IPB, CBC, CMP, NTBNP ####[facility] [address] [place], [place] [phone] Hematocrit (Bld) [Volume fraction] 37.3 % Low 39.0-51.0 [facility] Comment on above: Performed By: #### L IPB, CBC, CMP, NTBNP ####[address] [phone] Hemoglobin (Bld) [Mass/Vol] 11.9 g/dL Low 13.0-17.0 [facility] Comment on above: Performed By: #### L IPB, CBC, CMP, NTBNP ####[address] [phone] MCH 27.6 pG Normal 26.0-34.0 [facility] Comment on above: Performed By: #### L IPB, CBC, CMP, NTBNP ####[place] [phone] MCHC (RBC) [Mass/Vol] 31.9 g/dL Normal 30.5-36.0 [facility] Comment on above: Performed By: #### L IPB, CBC, CMP, NTBNP ####[address] [phone] MCV (RBC) [Entitic vol] 86.5 fL Normal 80.0-100.0 [facility] Comment on above: Performed By: #### L IPB, CBC, CMP, NTBNP ####[address] [phone] Platelet mean volume (Bld) [Entitic vol] 11.1 fL Normal 9.0-12.7 [facility] Comment on above: Performed By: #### L IPB, CBC, CMP, NTBNP ####[address] [phone] Platelets (Bld) [#/Vol] 233 10*3/uL Normal 150-400 [facility] Comment on above: Performed By: #### L IPB, CBC, CMP, NTBNP ####[place] [id number], [place] [phone] RBC (Bld) [#/Vol] 4.31 10*6/uL Normal 4.20-6.00 [facility] Comment on above: Performed By: #### L IPB, CBC, CMP, NTBNP ####[place] [address] [address], [place] [phone] WBC (Bld) [#/Vol] 5.49 10*3/uL Normal 3.70-11.00 [facility] Comment on above: Performed By: #### L IPB, CBC, CMP, NTBNP ####[place] [address] [address] [place], [place] [phone] CNOVon 09-08-2020 CNOV Normal [facility] CNPNon 09-08-2020 CNPN Normal [facility] Comp Metabolic Panelon 09-08 Albumin [Mass/Vol] 4.4 g/dL Normal 3.9-4.9 [facility] Comment on above: Performed By: #### L IPB, CBC, CMP, NTBNP ####[place] [address] [place], [place] [phone] ALP [Catalytic activity/Vol] 64 U/L Normal 38-113 [facility] Comment on above: Performed By: #### L IPB, CBC, CMP, NTBNP ####[facility], [place] [phone] ALT [Catalytic activity/Vol] 14 U/L Normal 10-54 [facility] Comment on above: Performed By: #### L IPB, CBC, CMP, NTBNP ####[place] [address] [place] [address], [place] [phone] Anion gap [Moles/Vol] 12 mmol/L Normal 9-18 [facility] Comment on above: Performed By: #### L IPB, CBC, CMP, NTBNP ####[place] [address] [place] [address] [place] [phone] AST [Catalytic activity/Vol] 20 U/L Normal 14-40 [facility] Comment on above: Performed By: #### L IPB, CBC, CMP, NTBNP ####[place] [address] [place] [address] [place] [phone] Bilirubin [Mass/Vol] 0.4 mg/dL Normal 0.2-1.3 [facility] Comment on above: Performed By: #### L IPB, CBC, CMP, NTBNP ####[place] [address] [address] [place] [address] [phone] Calcium [Mass/Vol] 10.0 mg/dL Normal 8.5-10.2 [facility] Comment on above: Performed By: #### L IPB, CBC, CMP, NTBNP ####[place] [address] [place] [address] [place] [phone] Chloride [Moles/Vol] 102 mmol/L Normal 97-105 [facility] Comment on above: Performed By: #### L IPB, CBC, CMP, NTBNP ####[place] [address] [place] [address] [place] [phone] CO2 [Moles/Vol] 27 mmol/L Normal 22-30 [facility] Comment on above: Performed By: #### L IPB, CBC, CMP, NTBNP ####[facility] [place] [address] [place] [phone] Creatinine [Mass/Vol] 1.10 mg/dL Normal 0.73-1.22 [facility] Comment on above: Performed By: #### L IPB, CBC, CMP, NTBNP ####[facility] [place] [address] [place] [phone] eGFR- Amer. >60 Normal [facility] Comment on above: Performed By: #### L IPB, CBC, CMP, NTBNP ####[facility] [place], [place] [phone] eGFR-All Other Races >60 Normal [facility] Comment on above: Result Comment: eGFR (Estimated GFR) Units of measure: mL/min/1.73 meters squaredeGFR is derived from the reexpressed MDRD Study equation using the following parameters: serum creatinine, age, gender and race. The creatinine assay has been calibrated to be traceable to IDMS.An eGFR <60 mL/min/1.73m2 for >3 months is consistent with chronic kidney disease. Refer to KDOQI guidelines for clinical interpretation.In patients with unstable renal function, e.g. those with acute kidney injury, the eGFR may not accurately reflect actual GFR. Performed By: #### L IPB, CBC, CMP, NTBNP ####[facility] [place], [place] [phone] Glucose [Mass/Vol] 195 mg/dL High 74-99 [facility] Comment on above: Result Comment: The [place] Diabetes Association (ADA) provides guidance for cutoff values for fasting glucose and random glucose. The ADA defines fasting as no caloric intake for at least 8 hours. Fasting plasma glucose results between 100 to 125 mg/dL indicate increased risk for diabetes (prediabetes).Fasting plasma glucose results greater than or equal to 126 mg/dL meet the criteria for diagnosis of diabetes. In the absence of unequivocal hyperglycemia, results should be confirmed by repeat testing. In a patient with classic symptoms of hyperglycemia or hyperglycemic crisis, random plasma glucose results greater than or equal to 200 mg/dL meet the criteria for diagnosis of diabetes.Reference: Standards of Medical Care in Diabetes 2016, [place] [employer] Association. Diabetes Care. 2016.39(Suppl 1). Performed By: #### L IPB, CBC, CMP, NTBNP ####[facility] [place], [place] [phone] Potassium [Moles/Vol] 4.2 mmol/L Normal 3.7-5.1 [facility] Comment on above: Performed By: #### L IPB, CBC, CMP, NTBNP ####[place] [address] [address], [place] [phone] Protein [Mass/Vol] 7.4 g/dL Normal 6.3-8.0 [facility] Comment on above: Performed By: #### L IPB, CBC, CMP, NTBNP ####[address], [place] [phone] Sodium [Moles/Vol] 141 mmol/L Normal 136-144 [facility] Comment on above: Performed By: #### L IPB, CBC, CMP, NTBNP ####[address] [phone] Urea nitrogen [Mass/Vol] 22 mg/dL Normal 9-24 [facility] Comment on above: Performed By: #### L IPB, CBC, CMP, NTBNP ####[address] [phone] Lipid Panel, [facility] 021 Cholesterol [Mass/Vol] 198 mg/dL Normal <200 [facility] Comment on above: Result Comment: <200 mg/dL, Desirable 200-239 mg/dL, Borderline high>239 mg/dL, High Performed By: #### L IPB, CBC, CMP, NTBNP ####[address] [phone] Cholesterol in HDL [Mass/Vol] 45 mg/dL Normal >39 [facility] Comment on above: Result Comment: 40-5 9 mg/dL, Acceptable>59 mg/dL, High: Negative risk factor for coronary heart disease<40 mg/dL, Low: Positive risk factor for coronary heart disease Performed By: #### L IPB, CBC, CMP, NTBNP ####[place] [address] [place], [place] [phone] Cholesterol in LDL [Mass/Vol] 133 mg/dL High <100 [facility] Comment on above: Result Comment: <100 mg/dL, Optimal 100-129 mg/dL, Near optimal/above optimal 130-159 mg/dL, Borderline high 160-189 mg/dL, High>189 mg/dL, Very highSecondary prevention optimal LDL Cholesterol levels are recommended to be < 70 mg/dL Performed By: #### L IPB, CBC, CMP, NTBNP ####[facility] [place], [place] [phone] Fasting Time 5 hrs Normal [facility] Comment on above: Performed By: #### L IPB, CBC, CMP, NTBNP ####[place] [phone] LDL:HDL Ratio 2.96 High <2.54 [facility] Comment on above: Result Comment: Refe rence:1. National Cholesterol Education Program ATP III Guideline At-A-Glance Quick Desk Reference: National Heart, Lung, and Blood Paron. National Institutes of Health. 2001: NIH Publication No. 01-3305.2. An International Atherosclerosis Society position paper: global recommendations for the management of dyslipidemia: executive summary, Atherosclerosis. 2014: 232(2):410-413. Performed By: #### L IPB, CBC, CMP, NTBNP ####[place] [address] [place], [place] [phone] Non HDL Cholesterol 153 mg/dL High <130 [facility] Comment on above: Result Comment: <130 mg/dL, Optimal 130-159 mg/dL, Near optimal/above optimal 160-189 mg/dL, Borderline high 190-219 mg/dL, High>219 mg/dL, Very highSecondary prevention optimal non HDL Cholesterol levels are recommended to be < 100 mg/dL Performed By: #### L IPB, CBC, CMP, NTBNP ####[place] [address] [place], [place] [phone] TC:HDL Ratio 4.40 Normal <5.10 [facility] Comment on above: Performed By: #### L IPB, CBC, CMP, NTBNP ####[facility] [place], [place] [phone] Triglyceride [Mass/Vol] 98 mg/dL Normal <150 [facility] Comment on above: Result Comment: <150 mg/dL, Normal 150-199 mg/dL, Borderline high 200-499 mg/dL, High>499 mg/dL, Very high Performed By: #### L IPB, CBC, CMP, NTBNP ####[place] [address] [place], [place] [phone] VLDL Cholesterol 20 mg/dL Normal <30 [facility] Comment on above: Performed By: #### L IPB, CBC, CMP, NTBNP ####[facility] [place], [place] [phone] NT Pro BNPon 09-08-2020 PRO B Natr Peptide 769 pg/mL High <125 [facility] Comment on above: Performed By: #### L IPB, CBC, CMP, NTBNP ####[facility] [place], [place] [phone] CNCOon 08-27-2020 CNCO Letter Text Normal [facility] Encounters Encounter Date Encounter Type Care Provider Facility Start: 10-01-2020 Patient encounter status Carlo Stevenson MD Work Phone: [facility] Start: 09-16-2020 End: 09-16-2020 Patient encounter procedure Ayan Stevenson MD Work Phone: Cardiothoracic Comment on above: Ventricular aneurysm (Primary Dx) Procedures Date Procedure Procedure Detail Performing Clinician Start: 10-01-2020 Antibody screen Comment on above: Performed By: #### T SCR30 ####[facility] [place], [place] [phone] Plan of Treatment Date Care Activity Detail Author Start: 10-20-2021 Influenza vaccination INFLUENZA (#1) [facility] Start: 10-18-2021 BP CONTROLLED (<130/80) BP CONTROLLE D (<130/80) [facility] Start: 09-08-2021 Hepatitis B surface antibody level LDL CHOLESTEROL [facility] Start: 02-19-2021 ADVANCE DIRECTIVE DISCUSSION ADVANCE DIRECTIVE DISCUSSION [facility] Start: 01-01-2021 Hemoglobin A1c/Hemoglobin.total in Blood HBA1C [facility] Start: 10-20-2020 COVID-19 VACCINE (3 - Booster for Pfizer series) COVID-19 VACCINE (3 - Booster for Pfizer series) [facility] Start: 2009 PROSTATE CANCER SCRE ENING DISCUSSION PROSTATE CANCER SCREENING DISCUSSION [facility] Start: 2004 SHINGRIX VACCINE (1 of 2) SHINGRIX V ACCINE (1 of 2) [facility] Start: 07-21-1999 COLOGUARD (FIT-DNA) COLOGUARD (FIT-D NA) [facility] Start: 07-21-1999 Colonoscopy COLONOSCOPY [facility] Start: 07-21-1999 COLORECTAL CANCER SCREENING COLORECTAL CANCER SCREENING [facility] Start: 07-21-[address] COLONOGRAPHY [facility] Start: 07-21-1999 FECAL OCCULT BLOOD FECAL OCCULT BLOO D [facility] Start: 07-21-[address] [facility] Start: 1973 Urine microalbumin profile DTAP,TDAP ,TD (1 - Tdap) [facility] Start: 1972 ANNUAL PCP TEAM CASHIER SUPERVISOR ONELIA DISEASE VISIT ANNUAL PCP TEAM CHRONIC DISEASE VISIT [facility] Start: 1966 Adult depression scr eening assessment DEPRESSION SCREENING [facility] Start: 1964 3 comp foot exam completed DIABETIC FOOT EXAM [facility] Start: 1964 Hepatitis B screening URINE AL BUMIN:CREATININE RATIO [facility] Start: 1964 Hepatitis C antibody , confirmatory test DILATED RETINAL EXAM [facility] Start: 1960 PNEUMOCOCCAL: 65+ (1 - PCV) PNEUMOCOCCAL: 65+ (1 - PCV) [facility] Start: 1954 ABDOMINAL AORTIC ANE URYSM SCREENING ABDOMINAL AORTIC ANEURYSM SCREENING [facility] Payers Date Payer Category Payer Medicare UHC AARP MEDICAR E [facility] AARP MEDICARE O [id number] 2020-Present [phone] [address] [address] [place] [address] O [id number] Social History Date Type Detail Facility Start: 09-08-2020 Tobacco smoking stat us NHIS Ex-smoker [facility] History of tobacco use Cigarette Smoker [facility] History of tobacco use Cigar Smoker [facility] Start: 09-08-2020 Cigarettes smoked cu rrent (pack per day) - Reported 0.5 [facility] Start: 09-08-2020 Tobacco use and exposure Smoke less tobacco non-user [facility] Start: 09-08-2020 Alcohol intake Ex-drinker (finding) [facility] Start: 1955 Sex Assigned At Male C [facility] Start: 09-18-2020 End: 10-18-2020 Exposure to SARS-CoV-2 (event) Not sure [facility] Medical Equipment Procedure Code Equipment Code Equipment Original Text Equipment Identifier Dates [place] Thk1.65mm P tfe 4x.5in Cardiovascular Sterile - [id number] Start: 10-04-2020 [place] Thk1.65mm P tfe 4x.5in Cardiovascular Sterile - [id number] Start: 10-04-2020 [place] Thk1.65mm P tfe 4x.5in Cardiovascular Sterile - [id number] Start: 10-04-2020 [place] Thk1.65mm P tfe 4x.5in Cardiovascular Sterile - [id number] Start: 10-04-2020 Patch Thk.5mm Gonzalo vine Pericardial 20v98qa Cardiovascular Resilience Durable - [id number] Start: 10-04-2020 Valve Biocor Fle xfit 29mm 27mm Porcine Pericardial 19mm Mitral - [id number] Start: 10-04-2020 Clinical Notes 09-08-2020 to 08-23-2021 Ayan Stevenson MD - 08/23/2021 9:39 AM EDT Note Date & Type Note Facility 08-23-2021 Note [facility] 08-23-2021 History of Present illness Narrative Images from the original note were not included. Thoracic and Cardiovascular Surgery [facility] SURGICAL STAFF CONSULT Patient Type: CONSULT Visit to determine Surgery: YES PCP: Jaja Ramsey MD [address] [place] [address] Referring Physician: Zafar Rose [address] [facility] [address] HPI: Mr. Eve Grey is a seen in consultation at the request of Zafar Rose for an opinion regarding cardiac surgery after being seen and evaluated by Norm Chatterjee M.D. . He is a 66 year old male with coronary artery disease, congestive heart failure and mitral insufficiency. He is currently symptomatic and complains of dyspnea on exertion. I have personally reviewed his cardiac catheterization which shows 2 vessel coronary artery disease. His echocardiogram reveals left ventricular dysfunction with an ejection fraction of 40% and severe mitral regurgitation and LV aneurysm. His significant past medical history includes hypertnesion, hyperlipidemia, NHYA class III heart failure and chronic systolic and diastolic heart failure. Based on my evaluation he is a reasonable candidate for surgery. Impression: Left ventricular aneurysm, Coronary artery disease, Congestive heart failure and Mitral insufficiency Plan: Full Sternotomy, Coronary Artery Bypass Graft and Mitral Valve Replacement and Tony. I spent more than 50% of the visit face to face counseling the patient on the plan and treatment options. The time spent counseling was 40 minutes. The total time of the face to face visit was 40 minutes. These findings will be communicated back to the requesting physician via electronic medical record and/or dictated letter. Ayan Stevenson MD documented in this encounter [facility] 10-18-2020 Note [facility] 10-18-2020 Note [facility] 10-11-2020 Note [facility] 10-10-2020 Note [facility] 10-09-2020 Note [facility] 10-09-2020 Note [facility] 10-08-2020 Note [facility] 10-07-2020 Note [facility] 10-06-2020 Note [facility] 10-05-2020 Note [facility] 10-04-2020 Note [facility] 10-04-2020 History of Past i llness Narrative Problem Noted Date Resolved Date Postoperative hypotension 10/04/20202020 Overview: History: 10/04/2020: LV aneurysm resection, CABG x 1, MVR Assessment: Vasoplegia. MAP 79 mmHg. Remains on vasopressin Plan: Titrate to MAPs 65-75. Volume resuscitation PRN. documented as of this encounter (statuses as of 08/23/2021) [facility]08[facility]13[facility]08-13[facility] 09-22-2020 [facility] NoteHNO ID: [id number] Author: James Perez Service: Radiology Author Type: Building Inspection Engineer Type: Progress Notes Filed: 09/14/2020 8:05 AM Note Text: Radiology Service Progress Note DATE OF SERVICE: September 14, 2020 TIME: 8:01 AM PATIENT IDENTITY VERIFICATION COMPLETED USING TWO (2) STANDARD IDENTIFIERS: Name and Date of confirmed by patient verbally and Name and Date of confirmed by identification band. FALL SCREENING: Has the patient had 2 falls in the last year or 1 fall with injury or currently using an Ambulatory Assistive Device (Walker, Cane, Wheelchair, Crutches, etc.)? No PATIENT GENDER DATA: Male PATIENT RELEVANT IMPLANT DATA REVIEWED: Yes ALLERGIES: Reviewed and unchanged CONTRAST ALLERGY: NO. EXAM: MRI - CONTRAST TYPE: GROUP II PERIPHERAL IV DATA: Ambulatory: A peripheral IV was started in the Right antecubital site with a Angio cath: 20 gauge. RADIOLOGY DEPARTMENT: MR; Exam(s) Completed: Cardiac: Cardiac SIGNATURE: James Perez PATIENT NAME: Eve Grey DATE: September 14, 2020 TIME: 8:01 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) documented in this encounter [facility] Summary Purpose Family History No Family History Records FoundNo Family History Records Found Advance Directives No Advanced Directives Records FoundDocuments on File Type Date Recorded Patient Account Service Representative Expl anation Advance Directive(s) Advance Directive(s) 10/04/2020 5:18 AM Advance Directive(s) 09/27/2020 1:34 PM Additional Source Comments (unrecognized sect ion and content) No Status Records FoundNo Status Records Found INFORMATION SOURCE (unrecogn ized section and content) DATE CREATED AUTHOR 09/16/2020 [facility] DATE CREATED AUTHOR AUTHOR'S ORGANIZ ATION 08/23/2021 [facility] Source Comments (unrecognize d section and content) In the event this informatio n is protected by the Federal Confidentiality of Alcohol and Drug Abuse Patient Records regulations: The Federal rules restrict any use of the information to criminally investigate or prosecute any alcohol or drug abuse patient.[facility] Care Teams (unrecognized sec tion and content) Tire Molder Relationship Specialty Start Date End Date Jaja Ramsey [address] [place], [place] [id number] PCP - General Family Practice 09/08/20 Froylan Bella [address] [facility] [address] [place], [place] [phone] Physician Cardiology 09/08/20 Zafar Rose MD [address] [place] [address] Primary Staff Physician Cardiology 09/09/20 FOR RECORDS PERTAINING TO PATIENTS WHO ARE OR HAVE BEEN ENROLLED IN A CHEMICAL DEPENDENCY/SUBSTANCEABUSE PROGRAM, SOME INFORMATION MAY BE OMITTED. This clinical summary was aggregated from multiple sources. Caution should be exercised in using it in the provision of clinical care. This summary normalizes information from multiple sources, and as a consequence, information in this document may materially change the coding, format and clinical context of patient data. In addition, data may be omitted in some cases. CLINICAL DECISIONS SHOULD BE BASED ON THE PRIMARY CLINICAL RECORDS. [employer] [facility]. provides no warranty or guarantee of the accuracy or completeness of information in this document.
[2023-12-10 12:21] LABS: Absolute Lymphocyte Count 1.08 X10^3/uL (0.83-4.51); Absolute Neutrophil Count 3.2 X10^3/uL (2.0-7.7); Basophil# 0.04 X10^3/uL; Basophil% 0.8 % (0-1); Eosinophil# 0.19 X10^3/uL; Eosinophils% 3.6 % (0-5); Hematocrit 38.7 % (40-54); Hemoglobin 12.5 g/dL (13.0-16.5); Lymphocyte # 1.08 X10^3/ul (0.83-4.51); Lymphocyte % 20.4 % (19-41); Mean Corp Hgb Conc 32.3 g/dL (32-36); Mean Corpuscular Hgb 29.8 pg (27.0-32.0); Mean Corpuscular Volume 92.4 fL (80-94); Mean Platelet Vol. 11.5 fl (6.2-12.0); Monocyte% 15.1 % (0-10); NRBC Flagged by Analyzer 0 % (0-5); Neutrophil # 3.18 X10^3/uL (2.7-7.7); Neutrophil % 59.9 % (47-70); Platelet Count 201 K/mm3 (150-450); RBC Distribution Width SD 43.4 fl (35.1-43.9); Red Blood Count 4.19 M/mm3 (4.6-6.2); White Blood Count 5.3 K/mm3 (4.4-11.0)
[2023-12-10 13:35] LABS: ALB/GLOB Ratio 1.1 RATIO (0.9-2.4); AST(SGOT) 15 U/L (15-37); Alanine Aminotransfer ALT/SGPT 28 U/L (16-61); Albumin, Serum 3.7 g/dL (3.2-5.0); Alkaline Phosphatase 76 U/L (45-117); Anion Gap 4 (5-15); BUN 19 mg/dL (7-18); BUN/Creat Ratio 18.3 RATIO (10-20); Calcium,Total 9.1 mg/dL (8.5-10.1); Chloride 104 mmol/L (98-107); Cholesterol 153 mg/dL (200); Creatinine, Serum 1.04 mg/dL (0.70-1.30); EST Glomerular Filtration Rate 75 mL/min (>60); Est Glom Filt Rate - Afr Amer 91 mL/min (>60); Globulin 3.5 g/dL (2.2-4.2); Glucose 160 mg/dL (74-106); High Density Lipoprotein 51 mg/dL; Protein, Total 7.2 g/dL (6.4-8.2); Sodium Level 138 mmol/L (136-145); Triglycerides 107 mg/dL; Very Low Density Lipoprotein 21 mg/dL (5-40)
== END | disposition home or self-care (01) ==
LOC: BFHLAB 09:09
PROVIDERS: PCP Family Medicine; Referring Provider Family Medicine; Visit Provider Family Medicine
DX: Z00.00 Encounter for general adult medical examination without abnormal findings (principal); E11.9 Type 2 diabetes mellitus without complications; I10 Essential (primary) hypertension; I25.10 Atherosclerotic heart disease of native coronary artery without angina pectoris
CPT/HCPCS: 36415; 80053; 80061; 82043; 82570; 85025

== ENCOUNTER → 2024-11-07 | Outpatient (CLI) | payer MEDICARE, SELFPAY ==
[2021-01-26 11:35] VITALS: BMI 24.9
[2024-11-07 12:48] LABS: Hematocrit 37.0 % (40-54); Hemoglobin 11.9 g/dL (13.0-16.5); Immature Granulocytes Count 0.020 X10^3/uL (0.0-0.0); Mean Corp Hgb Conc 32.2 g/dL (32-36); Mean Corpuscular Volume 93.0 fL (80-94); Mean Platelet Vol. 11.7 fl (6.2-12.0); NRBC Flagged by Analyzer 0 % (0-5); Platelet Count 197 K/mm3 (150-450); RBC Distribution Width CV 13.4 % (11.6-14.6); RBC Distribution Width SD 46.0 fl (35.1-43.9); Red Blood Count 3.98 M/mm3 (4.6-6.2); White Blood Count 6.2 K/mm3 (4.4-11.0)
[2024-11-07 13:08] LABS: Creatinine, Urine (random) 111.00 mg/dL (39.00-259.00); Microalbumin,Random Urine 134.0 mg/L (<20 mg/L)
[2024-11-07 13:12] LABS: AST(SGOT) 26 U/L (<=37); Alanine Aminotransfer ALT/SGPT 22 U/L (<=46); Albumin, Serum 4.2 g/dL (3.4-4.8); Alkaline Phosphatase 75 U/L (40-129); Anion Gap 12 (5-15); BUN 24 mg/dL (4-19); BUN/Creat Ratio 22.2 RATIO (10-20); Calcium,Total 9.2 mg/dL (7.6-11.0); Carbon Dioxide 24.5 mmol/L (21.0-32.0); Chloride 103 mmol/L (98-108); Cholesterol 135 mg/dL (<=200); Globulin 2.8 g/dL (2.2-4.2); Glucose 108 mg/dL (70-99); Low Density Lipoprotein Calc. 73 mg/dL; Potassium 3.9 mmol/L (3.3-5.1); Triglycerides 59 mg/dL; Very Low Density Lipoprotein 12 mg/dL (5-40); cholesterol:hdl ratio screen 2.67
== END | disposition home or self-care (01) ==
LOC: BFHLAB 08:37
PROVIDERS: PCP Family Medicine; Visit Provider Family Medicine
DX: I25.10 Atherosclerotic heart disease of native coronary artery without angina pectoris (principal); E11.9 Type 2 diabetes mellitus without complications; I10 Essential (primary) hypertension
CPT/HCPCS: 36415; 80053; 80061; 82043; 82570; 83036; 85025